=== PATIENT | female | born 1925 | race Caucasian/White ===

== ENCOUNTER 2016-06-13 19:07 | Inpatient (IN) | payer MEDICARE, OTHER ==
[~2016-06-13] VITALS: Ht 160 cm; Wt 54.4 kg
[2016-06-13 19:15] VITALS: BP 146/113
[2016-06-13 19:25] VITALS: BP 134/61
[2016-06-13] MEDS ORDERED: Vancomycin 1 GM in D5W 275 ML IVPB ONE (19:30)
[2016-06-13] MEDS ORDERED: Piperacillin/Tazobactam 3.375 GM in NS 110 ML IVPB ONE (19:30)
--- NOTE | 2016-06-13 19:30 | Emergency Room Report ---
History of Present Illness General Chief Complaint: Dyspnea/Respdistress Source: EMS Present Illness HPI [id number] BIBEMS for "SOB." Per paperwork/labs from 2 days ago Leuks 13k, H&H Sent for ?sepsis. Pmhx: HTN, CHF, CVA, dementia, DM, COPD Allergies: Coded Allergies: No Known Allergies (Unverified , 06/13/16) Patient History Limited by: age, medical condition Past Medical History: other - see my HPI Past Surgical History: unable to obtain Pertinent Family History: unable to obtain Social History: Denies: alcohol use, drug use, smoking Now: No Immunizations: UTD Reviewed Nursing Documentation: PMH: Agreed, PSxH: Agreed Nursing Documentation-PMH Past Medical History: No History, Except For Hx Cardiac Problems: Yes - CKD, heart failure Hx Hypertension: Yes Hx COPD: Yes Review of Systems All Other Systems: limited - unable to obtain Physical Exam Vital Signs Date Time Temp Pulse Resp B/P Pulse Ox O2 Delivery O2 Flow Rate FiO2 06/13/16 18:53 96 20 146/113 95 Nasal Cannula 4.0 Sp02 EP Interpretation: reviewed, normal General Appearance: normal inspection, well appearing, no apparent distress, non-toxic, other - Repeatedly yelling/moaning. Not speaking Head: normocephalic, atraumatic Eyes: bilateral eye EOMI, bilateral eye PERRL ENT: normal ENT inspection, hearing grossly normal, normal voice Neck: normal inspection, full range of motion, supple, no bony tend Respiratory: normal inspection, lungs clear, normal breath sounds, no rhonchi, no respiratory distress, no retraction, no accessory muscle use, no wheezing Cardiovascular #1: regular rate, rhythm, no edema Gastrointestinal: normal inspection, normal bowel sounds, non tender, soft, no guarding, no hernia Genitourinary: no CVA tenderness Musculoskeletal: normal inspection, back normal, normal range of motion, Jessica' s Sign negative Neurologic: normal inspection, alert, responsive, speech normal Psychiatric: normal inspection, judgement/insight normal, mood/affect normal Skin: normal inspection, normal color, no rash Lymphatic: normal inspection Medical Decision Making Medicare Attestation I Ede Levy MD hereby attest that the medical record entry for date of service, 02/09/16 accurately reflects signatures/notations that I made in my capacity as MD when I treated/diagnosed the above listed Medicare beneficiary. I attest that this information is true, accurate and complete to the best of my knowledge. I understand that any falsification, omission, or concealment of material fact may subject me to administrative, civil, or criminal liability. This patient warrants hospital admission for extreme of age and has a condition that cannot be treated as outpatient. Diagnostic Impression: Primary Impression: Hypoxia Additional Impressions: Sepsis Qualified Codes: A41.9 - Sepsis, unspecified organism ANNELIESE (acute kidney injury) ER Course Labs: Leuks 17k. H&H stable. Mild ANNELIESE CXR: No obvious lobar pna UA:grossly infected Blood Cx pending Empiric Abx given, likey urosepsis Endorsed to Dr Borjas at 808pm for tele admission. EKG Diagnostic Results Rate: tachycardiac Rhythm: NSR ST Segments: no acute changes ASA given to the pt in ED: No Rhythm Strip Diag. Results EP Interpretation: yes Rate: 88 Rhythm: NSR, no PVC's, no ectopy Chest X-Ray Diagnostic Results EP Interpretation: Yes Findings: no consolidation, no effusion, no pneumothorax, no acute cardiopulmonary disease Number of Views: 1 Last Vital Signs Date Time Temp Pulse Resp B/P Pulse Ox O2 Delivery O2 Flow Rate FiO2 06/13/16 19:15 96 20 Nasal Cannula 4.0 06/13/16 19:15 146/113 95 Status: improved Disposition: ADMITTED INPATIENT Condition: Serious EDE LEVY M.D. Jun 13, 2016 19:30
[2016-06-13] MEDS ORDERED: Zosyn 3.375gm inj ONE (19:35)
[2016-06-13 19:39] LABS: BASOPHILS % (AUTO) 0.5 % (0.0-2.0); EOSINOPHILS % (AUTO) 4.4 % (0.0-3.0); LYMPHOCYTES % (AUTO) 16.5 % (20.0-45.0); MEAN CORPUSCULAR HEMOGLOBIN 29.3 PG (27.0-31.0); MEAN CORPUSCULAR HGB CONC 30.4 G/DL (32.0-36.0); MEAN CORPUSCULAR VOLUME 96 FL (80-99); MEAN PLATELET VOLUME 6.6 FL (6.5-10.1); MONOCYTES % (AUTO) 5.2 % (1.0-10.0); NEUTROPHILS % (AUTO) 73.5 % (45.0-75.0); PLATELET COUNT 407 K/UL (150-450); RED BLOOD COUNT 3.99 M/UL (4.20-5.40); RED CELL DISTRIBUTION WIDTH 15.5 % (11.6-14.8)
[2016-06-13 19:49] LABS: TROPONIN I < 0.30 ng/mL (<=0.30)
[2016-06-13 19:52] LABS: ALANINE AMINOTRANSFERASE 10 U/L (3-33); ANION GAP 12 (5-15); ASPARTATE AMINO TRANSFERASE 13 U/L (5-40); CALCIUM 10.2 mg/dL (8.6-10.2); CARBON DIOXIDE 36 mEQ/L (20-30); CHLORIDE 97 mEQ/L (98-107); HEMOLYSIS 2; POTASSIUM 4.6 mEQ/L (3.4-4.9); SODIUM 145 mEQ/L (135-145)
[2016-06-13 20:02] LABS: CKMB < 1.5 ng/mL (< 3.8)
[2016-06-13] MEDS ORDERED: Vancomycin 1gm inj IVPB ONE (20:10)
[2016-06-13 20:11] LABS: APPEARANCE,URINE TURBID; KETONES,URINE NEGATIVE (NEGATIVE); LEUKOCYTE ESTERASE ,URINE 3+ (NEGATIVE); NITRITE,URINE NEGATIVE (NEGATIVE); PH,URINE 7 (4.5-8.0); PROTEIN,URINE 3+ (NEGATIVE); UROBILINOGEN,URINE NORMAL MG/DL (0.0-1.0)
[2016-06-13 20:21] LABS: AMORPHOUS SEDIMENT,UR MANY /LPF; BACTERIA,URINE MODERATE /HPF; SQUAMOUS EPITHELIAL CELL,UR FEW /LPF (NONE/OCC); WBC,URINE 60-80 /HPF (0 - 2)
[2016-06-13] MEDS ORDERED: DUONEB 0.5-3(2.53 ML HHN (21:02)
[2016-06-13] MEDS ORDERED: DOCUSATE SODIU100 MG ORAL (21:02)
[2016-06-13] MEDS ORDERED: CATAPRES0.1 MG ORAL (21:02)
[2016-06-13] MEDS ORDERED: FERROUS SU300 MG/5 M ORAL (21:03)
[2016-06-13] MEDS ORDERED: MULTI-DELYN237 ML GT (21:03)
[2016-06-13] MEDS ORDERED: PEPCID20 MG ORAL (21:03)
[2016-06-13] MEDS ORDERED: VITAMIN C GT (21:06)
[2016-06-13] MEDS ORDERED: SYNTHROID25 MCG ORAL (21:06)
[2016-06-13] MEDS ORDERED: ACETAMINOPHEN325 M1 ORAL (21:06)
[2016-06-13] MEDS ORDERED: SINGULAIR10 MG ORAL (21:06)
[2016-06-13 21:17] VITALS: BP 113/69
[2016-06-13] MEDS ORDERED: Norco 5mg/325mg tab ORAL PRN (22:00)
[2016-06-13] MEDS ORDERED: Docusate 100mg tablet ORAL PRN (22:00)
[2016-06-13] MEDS ORDERED: Morphine Sulfate 2mg/ml Inj IVP PRN (22:00)
--- NOTE | 2016-06-13 23:55 | History & Physical ---
History and Physical History & Physicial H&P dictated [id number] SARAVANAN ROWE M.D. Jun 13, 2016 23:55
[2016-06-14] VITALS: BP 147/100
[2016-06-14 04:00] VITALS: BP 130/70
[2016-06-14] MEDS ORDERED: NovoLOG Insulin Flexpen SUBQ SCH (06:30)
[2016-06-14] MEDS ORDERED: DiphenhydrAMINE 25mg/10ml Elixir NG PRN (06:30)
[2016-06-14] MEDS: Albuterol ud Inhalation HHN SCH ×3 (07:20→19:13)
--- NOTE | 2016-06-14 07:39 | History and Physical Report ---
DATE OF ADMISSION: 06/13/2016 CHIEF COMPLAINT: Dyspnea. HISTORY OF PRESENT ILLNESS: This is an 89-year-old female with a history of dementia, hypertension, congestive heart failure, history of CVA, diabetes, dysphagia with G-tube placement, COPD, and pneumonia in the past, who was brought in by ambulance to long-term facility for shortness of breath and dyspnea. The patient is currently on 4 liters of oxygen saturating at 96%. She is a poor historian with a history of dementia. She has not had any fevers. History was obtained from the chart and records. The patient had a white count of 13,000 two days ago and today her white count is 17,000. PAST MEDICAL HISTORY: Significant for dementia, hypertension, congestive heart failure, history of CVA, diabetes, dysphagia, status post G-tube placement, and COPD. ALLERGIES: No known drug allergies. MEDICATIONS: Reviewed in [employer]. SOCIAL HISTORY: The patient denies drinks, smoke, or use of any drugs. FAMILY HISTORY: Noncontributory. REVIEW OF SYSTEMS: Unobtainable because of the patient's mental status and dementia. PHYSICAL EXAMINATION: VITAL SIGNS: In emergency room, temperature is 98 degrees, pulse is 96, respiratory rate 20, blood pressure 146/113, and pulse oximetry is 95% on 4 liters. GENERAL: In no acute distress. This is an elderly lady, who is very difficult to arouse. She is sleeping. HEENT: Normocephalic/atraumatic. NECK: Supple. No JVD. LUNGS: Wheezy bilaterally, however, no rhonchi appreciated. CARDIOVASCULAR: Regular rate and rhythm. Normal S1 and S2. ABDOMEN: Soft and nontender. She has an abdominal binder with PEG tube in place. EXTREMITIES: No clubbing, cyanosis, or edema. SKIN: The patient has some redness over the left lower back and upper back, otherwise no other rashes seen. PSYCH: Difficult to assess because of the patient's lethargy. NEUROLOGIC: The patient is asleep and difficult to arouse. I could not check motor function. LABORATORY AND DIAGNOSTIC DATA: EKG shows normal sinus rhythm, tachycardia, and no acute changes. Chest x-ray shows no consolidation. No culture. CBC, white count of 19,000, hemoglobin 11.7, and platelet count 407,000. Sodium 145, potassium 4.6, chloride 97, CO2 26, BUN 49, creatinine 1. Glucose 144. Lactic acid is 1.4. Troponin is less than 0.30. Urine, 60 to 80 white blood cells, 5 to 10 RBCs, 3+ leukocyte esterase, and moderate bacteria. ASSESSMENT: 1. Hypoxic respiratory distress, likely secondary to upper respiratory infection. 2. Sepsis (Systemic inflammatory response syndrome criteria) now with leukocytosis with white count of 30,000 and pulse rate of 90 as well as source of likely upper respiratory infection. 3. Urinary tract infection. 4. Severe dementia. 5. History of cerebrovascular accident. 6. Hypertension. 7. Diabetes. 8. Dysphagia with gastrostomy tube placement. 9. Chronic obstructive pulmonary disease. 10. Acute kidney injury, likely prerenal. PLAN: 1. Admit the patient to Med/Surg. 2. Blood culture is pending. 3. Empiric antibiotics with vancomycin and Zosyn. 4. Nebs as needed every 4 hours. 5. Follow up urine culture. 6. Intravenous fluids. 7. Pulmonary consult with Dr. Razo in a.m. 8. DVT prophylaxis with heparin. José Miguel Borjas MD DR: SHILPI/Arturo JOB#: [id number] CC:
[2016-06-14 08:00] VITALS: BP 114/52
[2016-06-14 08:10] LABS: BASOPHILS % (AUTO) 0.6 % (0.0-2.0); EOSINOPHILS % (AUTO) 5.4 % (0.0-3.0); LYMPHOCYTES % (AUTO) 14.5 % (20.0-45.0); MEAN CORPUSCULAR HEMOGLOBIN 29.4 PG (27.0-31.0); MEAN CORPUSCULAR HGB CONC 30.3 G/DL (32.0-36.0); MEAN CORPUSCULAR VOLUME 97 FL (80-99); MEAN PLATELET VOLUME 6.4 FL (6.5-10.1); MONOCYTES % (AUTO) 4.9 % (1.0-10.0); NEUTROPHILS % (AUTO) 74.6 % (45.0-75.0); PLATELET COUNT 339 K/UL (150-450); RED BLOOD COUNT 3.77 M/UL (4.20-5.40); RED CELL DISTRIBUTION WIDTH 15.5 % (11.6-14.8); WHITE BLOOD COUNT 15.4 K/UL (4.8-10.8)
[2016-06-14 08:42] LABS: ALANINE AMINOTRANSFERASE 9 U/L (3-33); ANION GAP 12 (5-15); ASPARTATE AMINO TRANSFERASE 18 U/L (5-40); CALCIUM 9.5 mg/dL (8.6-10.2); CARBON DIOXIDE 36 mEQ/L (20-30); CHLORIDE 101 mEQ/L (98-107); HEMOLYSIS 2; POTASSIUM 4.5 mEQ/L (3.4-4.9); SODIUM 149 mEQ/L (135-145); TOTAL PROTEIN 6.4 g/dL (6.6-8.7)
[2016-06-14] MEDS ORDERED: Levothyroxine 25mcg tab ORAL SCH (09:00)
[2016-06-14] MEDS ORDERED: Heparin 5000 units/ml inj SUBQ SCH (09:00)
--- NOTE | 2016-06-14 11:45 | Diagnostic Imaging Report ---
Indications: Shortness breath Technique: Portable AP chest Findings: Comparison: None Cardiac silhouette enlarged. Central pulmonary arteries prominent. Mild pulmonary vascular redistribution, bilateral interstitial prominence suggested. Small calcified nodule suggested left midlung. Linear densities right midlung. Bilateral costophrenic angles mildly blunted. Lower thoracic vertebral osteophytes. Aortic arch calcified. IMPRESSION: Findings suggest mild congestive heart failure with small bibasal pleural effusions Suggestion is left midlung nodule, granuloma versus other Aortosclerosis Suggestion of element of pulmonary arterial hypertension
[2016-06-14] MEDS: NovoLOG Insulin Flexpen SUBQ SCH ×3 (12:12→23:33)
--- NOTE | 2016-06-14 12:55 | Internal Med Progress Note ---
Subjective Date of Service: Jun 14, 2016 Physician Name Radha Berman Attending Physician José Miguel Borjas M.D. Current Medications Medications (Trade) Dose Ordered Sig/Mallory Route PRN Reason Start Time Stop Time Status Last Admin Dose Admin Acetaminophen (Tylenol) 650 mg Q4H PRN ORAL Mild Pain (Pain Scale 1-3) 06/13/16 22:00 07/13/16 21:59 Acetaminophen 650 mg 650 mg Q4H PRN ORAL Mild Pain/Temp > 100.5 06/13/16 22:00 07/13/16 21:59 Acetaminophen/ Hydrocodone Bitart ([place] 5/325) 1 tab Q4H PRN ORAL Moderate Pain (Pain Scale 4-6) 06/13/16 22:00 06/20/16 21:59 Albuterol Sulfate (Proventil) 2.5 mg Q6HRT HHN 06/14/16 01:00 06/19/16 00:59 06/14/16 07:20 Clonidine HCl (Catapres) 0.1 mg DAILY PRN ORAL For High Blood Pressure 06/13/16 22:00 07/13/16 21:59 Dextrose (Dextrose 50%) STAT PRN IV Hypoglycemia 06/14/16 06:30 07/14/16 06:29 Diphenhydramine HCl (Benadryl) 25 mg Q6H PRN NG Itching or rash 06/14/16 06:30 07/14/16 06:29 06/14/16 10:38 Docusate Sodium (Colace) 100 mg TID PRN ORAL Constipation 06/13/16 22:00 07/13/16 21:59 Heparin Sodium (Porcine) (Heparin 5000 units/ml) 5,000 units EVERY 12 HOURS SUBQ 06/14/16 09:00 07/14/16 08:59 06/14/16 09:22 Insulin Aspart (NovoLOG) Q6HR SUBQ 06/14/16 12:00 07/14/16 11:59 06/14/16 12:12 Levothyroxine Sodium (Synthroid) 25 mcg DAILY ORAL 06/14/16 09:00 07/14/16 08:59 06/14/16 09:21 Morphine Sulfate (Morphine Sulfate) 2 mg Q4H PRN IVP For Pain 06/13/16 22:00 06/20/16 21:59 Ondansetron HCl (Zofran) 4 mg Q6H PRN IVP Nausea & Vomiting 06/13/16 22:00 07/13/16 21:59 Sodium Chloride (Sodium Chloride 1000ml bag) 1,000 ml @ 100 mls/hr Q10H IVLG 06/13/16 22:55 07/13/16 22:54 06/14/16 09:21 Allergies: Coded Allergies: No Known Allergies (Unverified , 06/13/16) ROS Limited/Unobtainable: Yes Subjective 89 YO F admitted with shortness of breath. Cover for Int med-Dr Borjas. Objective Last Vital Signs Date Time Temp Pulse Resp B/P Pulse Ox O2 Delivery O2 Flow Rate FiO2 06/14/16 08:00 88 06/14/16 08:00 96.5 18 114/52 96 Nasal Cannula 2.0 06/14/16 07:20 28 Laboratory Tests Test 06/13/16 19:10 06/13/16 19:20 06/14/16 07:05 White Blood Count 17.0 K/UL (4.8-10.8) H 15.4 K/UL (4.8-10.8) H Red Blood Count 3.99 M/UL (4.20-5.40) L 3.77 M/UL (4.20-5.40) L Hemoglobin 11.7 G/DL (12.0-16.0) L 11.1 G/DL (12.0-16.0) L Hematocrit 38.4 % (37.0-47.0) 36.6 % (37.0-47.0) L Mean Corpuscular Volume 96 FL (80-99) 97 FL (80-99) Mean Corpuscular Hemoglobin 29.3 PG (27.0-31.0) 29.4 PG (27.0-31.0) Mean Corpuscular Hemoglobin Concent 30.4 G/DL (32.0-36.0) L 30.3 G/DL (32.0-36.0) L Red Cell Distribution Width 15.5 % (11.6-14.8) H 15.5 % (11.6-14.8) H Platelet Count 407 K/UL (150-450) 339 K/UL (150-450) Mean Platelet Volume 6.6 FL (6.5-10.1) 6.4 FL (6.5-10.1) L Neutrophils (%) (Auto) 73.5 % (45.0-75.0) 74.6 % (45.0-75.0) Lymphocytes (%) (Auto) 16.5 % (20.0-45.0) L 14.5 % (20.0-45.0) L Monocytes (%) (Auto) 5.2 % (1.0-10.0) 4.9 % (1.0-10.0) Eosinophils (%) (Auto) 4.4 % (0.0-3.0) H 5.4 % (0.0-3.0) H Basophils (%) (Auto) 0.5 % (0.0-2.0) 0.6 % (0.0-2.0) Sodium Level 145 mEQ/L (135-145) 149 mEQ/L (135-145) H Potassium Level 4.6 mEQ/L (3.4-4.9) 4.5 mEQ/L (3.4-4.9) Chloride Level 97 mEQ/L (98-107) L 101 mEQ/L (98-107) Carbon Dioxide Level 36 mEQ/L (20-30) H 36 mEQ/L (20-30) H Anion Gap 12 (5-15) 12 (5-15) Blood Urea Nitrogen 49 mg/dL (7-23) H 47 mg/dL (7-23) H Creatinine 1.0 mg/dL (0.5-0.9) H 1.0 mg/dL (0.5-0.9) H Estimat Glomerular Filtration Rate mL/min (>60) mL/min (>60) Glucose Level 144 mg/dL (74-106) H 111 mg/dL (74-106) H Lactic Acid Level 1.40 mmol/L (0.66-2.22) Calcium Level 10.2 mg/dL (8.6-10.2) 9.5 mg/dL (8.6-10.2) Total Bilirubin < 0.2 mg/dL (0.0-1.2) 0.3 mg/dL (0.0-1.2) Aspartate Amino Transf (AST/SGOT) 13 U/L (5-40) 18 U/L (5-40) Alanine Aminotransferase (ALT/SGPT) 10 U/L (3-33) 9 U/L (3-33) Alkaline Phosphatase 78 U/L (35-104) 73 U/L (35-104) Total Creatine Kinase 14 U/L (26-140) L Creatine Kinase MB < 1.5 ng/mL (< 3.8) Creatine Kinase MB Relative Index 10.7 Troponin I < 0.30 ng/mL (<=0.30) Pro-B-Type Natriuretic Peptide 904 pg/mL (0-450) H Total Protein 7.0 g/dL (6.6-8.7) 6.4 g/dL (6.6-8.7) L Albumin 3.5 g/dL (3.5-5.2) 3.2 g/dL (3.5-5.2) L Globulin 3.5 g/dL 3.2 g/dL Albumin/Globulin Ratio 1.0 (1.0-2.7) 1.0 (1.0-2.7) Urine Color Yellow Urine Appearance Turbid Urine pH 7 (4.5-8.0) Urine Specific [place] 1.010 (1.005-1.035) Urine Protein 3+ (NEGATIVE) H Urine Glucose (UA) Negative (NEGATIVE) Urine Ketones Negative (NEGATIVE) Urine Occult Blood 4+ (NEGATIVE) H Urine Nitrite Negative (NEGATIVE) Urine Bilirubin Negative (NEGATIVE) Urine Urobilinogen Normal MG/DL (0.0-1.0) Urine Leukocyte Esterase 3+ (NEGATIVE) H Urine RBC 5-10 /HPF (0 - 2) H Urine WBC 60-80 /HPF (0 - 2) H Urine Squamous Epithelial Cells Few /LPF (NONE/OCC) Urine Amorphous Sediment Many /LPF (NONE) H Urine Bacteria Moderate /HPF (NONE) H Hemoglobin A1c 4.9 % (< 6.0) Microbiology Date/Time Source Procedure Growth Status 06/13/16 19:20 Urine,Clean Catch Urine Culture - Preliminary Resulted Intake and Output 06/13/16 06/14/16 19:00 07:00 Intake Total 985 ml Output Total 400 ml Balance 585 ml Intake IV Total 985 ml Output Urine Total 400 ml # Voids 1 # Bowel Movements 4 Objective General: alert, cooperative, no distress, appears stated age Head: normocephalic, without obvious abnormality, atraumatic Eyes: conjunctivae/corneas clear. PERRL, EOM's intact Throat: lips, mucosa, and tongue normal. MMM Neck: supple, symmetrical, trachea midline, and no JVD Lungs: Few exp wheezes and crackles at deandra bases; otherwise, clear to auscultation bilaterally Heart: regular rate and rhythm, S1, S2 normal, no murmur, click, rub or gallop Abdomen: soft, non-tender, non-distended, bowel sounds normal; no masses or organomegaly Extremities: extremities normal, atraumatic, no cyanosis or edema Pulses: 2+ and symmetric Skin: skin color, texture, turgor normal; no rashes or lesions Neurologic: grossly normal, no focal deficits Assessment/Plan Problem List: (1) Shortness of breath (2) Respiratory failure Assessment & Plan: COPD and CHF. Await cardiology consult. (3) Hypertension (4) COPD (chronic obstructive pulmonary disease) (5) CHF (congestive heart failure) Assessment & Plan: Await cardiology consult. (6) Diabetes mellitus, type II Assessment & Plan: Cont novolog sliding scale. (7) Cerebral vascular disease (8) Leukocytosis (9) Alzheimer's dementia (10) Hypothyroidism Assessment & Plan: Cont synthroid (11) UTI (urinary tract infection) Assessment & Plan: Await culture results. Cont zosyn and vanco for now. Status: not improved RADHA BERMAN Jun 14, 2016 12:55
--- NOTE | 2016-06-14 13:23 | Consultation ---
History of Present Illness General Date patient seen: Jun 14, 2016 Chief Complaint: Dyspnea/Respdistress Reason for Consultation: dyspnea Present Illness HPI 89 year female with hx of CHF, CVA, PEG, DM, COPD [facility] resident brought in by paramedics because of dyspnea. Apparently he was tachypnic and desaturating. Pt can't give any history. She was diagnosed to have urosepsis and admitted to telemetry for further evaluation. Currently pt looks comfortable in no acute distress. Allergies: Coded Allergies: No Known Allergies (Unverified , 06/13/16) Medication History Scheduled Docusate Sodium* (Docusate Sodium*), 100 MG ORAL TWICE A DAY, (Reported) Famotidine (Pepcid), 20 MG ORAL DAILY, (Reported) Ferrous Sulfate (Ferrous Sulfate), 7.5 ML ORAL DAILY, (Reported) Levothyroxine Sodium* (Synthroid*), 25 MCG ORAL DAILY, (Reported) Montelukast Sodium* (Singulair*), 10 MG ORAL BEDTIME, (Reported) Multivitamin Liquid* (Multi-Delyn*), 5 ML GT DAILY, (Reported) [Vitamin C], 5 ML GT DAILY, (Reported) Scheduled PRN Acetaminophen* (Acetaminophen 325MG Tablet*), 325 MG ORAL Q4H PRN for For Pain, (Reported) Clonidine Hcl* (Catapres*), 0.1 MG ORAL PRN PRN for For High Blood Pressure, ( Reported) Ipratropium/Albuterol Sulfate (DuoNeb 0.5-3(2.5)mg/3ml), 3 ML HHN EVERY 4 HOURS PRN for Shortness of Breath, (Reported) Patient History Healthcare decision maker Resuscitation status Full Code Advanced Directive on File Past Medical/Surgical History Past Medical/Surgical History: (1) COPD (chronic obstructive pulmonary disease) (2) Diabetes mellitus, type II (3) Hypertension (4) Cerebral vascular disease (5) Alzheimer's dementia Review of Systems All Other Systems: negative except mentioned in HPI Physical Exam General Appearance: WD/WN, no apparent distress Lines, tubes and drains: peripheral, central line HEENT: normocephalic, atraumatic Neck: non-tender Respiratory/Chest: chest wall non-tender Cardiovascular/Chest: normal peripheral pulses Abdomen: normal bowel sounds, feeding tube, other Genitourinary/Rectal: normal genital exam Extremities: normal range of motion, non-tender Last 24 Hour Vital Signs Date Time Temp Pulse Resp B/P Pulse Ox O2 Delivery O2 Flow Rate FiO2 06/14/16 13:04 28 06/14/16 13:04 73 18 98 Nasal Cannula 2.0 28 06/14/16 13:03 69 18 97 Nasal Cannula 2.0 28 06/14/16 08:00 88 06/14/16 08:00 96.5 88 18 114/52 96 Nasal Cannula 2.0 06/14/16 07:20 86 18 97 Nasal Cannula 2.0 28 06/14/16 07:20 Nasal Cannula 2.0 28 06/14/16 07:20 86 18 Nasal Cannula 4.0 06/14/16 07:20 28 06/14/16 07:20 86 18 98 Nasal Cannula 2.0 28 06/14/16 04:00 91 06/14/16 04:00 97.9 88 16 130/70 98 Nasal Cannula 4.0 06/14/16 00:00 97.0 89 16 147/100 100 Nasal Cannula 4.0 06/13/16 23:48 87 06/13/16 21:49 97 31 113/69 94 Nasal Cannula 6.0 06/13/16 21:17 97.6 97 31 113/69 94 Nasal Cannula 6.0 06/13/16 19:25 99.5 94 19 134/61 94 Nasal Cannula 4.0 06/13/16 19:15 96 20 Nasal Cannula 4.0 06/13/16 19:15 66 20 146/113 95 Nasal Cannula 4.0 06/13/16 18:53 96 20 146/113 95 Nasal Cannula 4.0 Intake and Output 06/13/16 06/14/16 19:00 07:00 Intake Total 985 ml Output Total 400 ml Balance 585 ml Intake IV Total 985 ml Output Urine Total 400 ml # Voids 1 # Bowel Movements 4 Laboratory Tests Test 06/13/16 19:10 06/13/16 19:20 06/14/16 07:05 White Blood Count 17.0 K/UL (4.8-10.8) H 15.4 K/UL (4.8-10.8) H Red Blood Count 3.99 M/UL (4.20-5.40) L 3.77 M/UL (4.20-5.40) L Hemoglobin 11.7 G/DL (12.0-16.0) L 11.1 G/DL (12.0-16.0) L Hematocrit 38.4 % (37.0-47.0) 36.6 % (37.0-47.0) L Mean Corpuscular Volume 96 FL (80-99) 97 FL (80-99) Mean Corpuscular Hemoglobin 29.3 PG (27.0-31.0) 29.4 PG (27.0-31.0) Mean Corpuscular Hemoglobin Concent 30.4 G/DL (32.0-36.0) L 30.3 G/DL (32.0-36.0) L Red Cell Distribution Width 15.5 % (11.6-14.8) H 15.5 % (11.6-14.8) H Platelet Count 407 K/UL (150-450) 339 K/UL (150-450) Mean Platelet Volume 6.6 FL (6.5-10.1) 6.4 FL (6.5-10.1) L Neutrophils (%) (Auto) 73.5 % (45.0-75.0) 74.6 % (45.0-75.0) Lymphocytes (%) (Auto) 16.5 % (20.0-45.0) L 14.5 % (20.0-45.0) L Monocytes (%) (Auto) 5.2 % (1.0-10.0) 4.9 % (1.0-10.0) Eosinophils (%) (Auto) 4.4 % (0.0-3.0) H 5.4 % (0.0-3.0) H Basophils (%) (Auto) 0.5 % (0.0-2.0) 0.6 % (0.0-2.0) Sodium Level 145 mEQ/L (135-145) 149 mEQ/L (135-145) H Potassium Level 4.6 mEQ/L (3.4-4.9) 4.5 mEQ/L (3.4-4.9) Chloride Level 97 mEQ/L (98-107) L 101 mEQ/L (98-107) Carbon Dioxide Level 36 mEQ/L (20-30) H 36 mEQ/L (20-30) H Anion Gap 12 (5-15) 12 (5-15) Blood Urea Nitrogen 49 mg/dL (7-23) H 47 mg/dL (7-23) H Creatinine 1.0 mg/dL (0.5-0.9) H 1.0 mg/dL (0.5-0.9) H Estimat Glomerular Filtration Rate mL/min (>60) mL/min (>60) Glucose Level 144 mg/dL (74-106) H 111 mg/dL (74-106) H Lactic Acid Level 1.40 mmol/L (0.66-2.22) Calcium Level 10.2 mg/dL (8.6-10.2) 9.5 mg/dL (8.6-10.2) Total Bilirubin < 0.2 mg/dL (0.0-1.2) 0.3 mg/dL (0.0-1.2) Aspartate Amino Transf (AST/SGOT) 13 U/L (5-40) 18 U/L (5-40) Alanine Aminotransferase (ALT/SGPT) 10 U/L (3-33) 9 U/L (3-33) Alkaline Phosphatase 78 U/L (35-104) 73 U/L (35-104) Total Creatine Kinase 14 U/L (26-140) L Creatine Kinase MB < 1.5 ng/mL (< 3.8) Creatine Kinase MB Relative Index 10.7 Troponin I < 0.30 ng/mL (<=0.30) Pro-B-Type Natriuretic Peptide 904 pg/mL (0-450) H Total Protein 7.0 g/dL (6.6-8.7) 6.4 g/dL (6.6-8.7) L Albumin 3.5 g/dL (3.5-5.2) 3.2 g/dL (3.5-5.2) L Globulin 3.5 g/dL 3.2 g/dL Albumin/Globulin Ratio 1.0 (1.0-2.7) 1.0 (1.0-2.7) Urine Color Yellow Urine Appearance Turbid Urine pH 7 (4.5-8.0) Urine Specific [place] 1.010 (1.005-1.035) Urine Protein 3+ (NEGATIVE) H Urine Glucose (UA) Negative (NEGATIVE) Urine Ketones Negative (NEGATIVE) Urine Occult Blood 4+ (NEGATIVE) H Urine Nitrite Negative (NEGATIVE) Urine Bilirubin Negative (NEGATIVE) Urine Urobilinogen Normal MG/DL (0.0-1.0) Urine Leukocyte Esterase 3+ (NEGATIVE) H Urine RBC 5-10 /HPF (0 - 2) H Urine WBC 60-80 /HPF (0 - 2) H Urine Squamous Epithelial Cells Few /LPF (NONE/OCC) Urine Amorphous Sediment Many /LPF (NONE) H Urine Bacteria Moderate /HPF (NONE) H Hemoglobin A1c 4.9 % (< 6.0) Microbiology Date/Time Source Procedure Growth Status 06/13/16 19:20 Urine,Clean Catch Urine Culture - Preliminary Resulted Height (Feet): 5 Height (Inches): 3.00 Weight (Pounds): 120 Medications Current Medications Medications (Trade) Dose Ordered Sig/Mallory Route PRN Reason Start Time Stop Time Status Last Admin Dose Admin Acetaminophen (Tylenol) 650 mg Q4H PRN ORAL Mild Pain (Pain Scale 1-3) 06/13/16 22:00 07/13/16 21:59 Acetaminophen (Tylenol) 650 mg Q4H PRN ORAL Mild Pain/Temp > 100.5 06/13/16 22:00 07/13/16 21:59 Acetaminophen/ Hydrocodone Bitart ([place] 5/325) 1 tab Q4H PRN ORAL Moderate Pain (Pain Scale 4-6) 06/13/16 22:00 06/20/16 21:59 Albuterol Sulfate (Proventil) 2.5 mg Q6HRT HHN 06/14/16 01:00 06/19/16 00:59 06/14/16 13:02 Clonidine HCl (Catapres) 0.1 mg DAILY PRN ORAL For High Blood Pressure 06/13/16 22:00 07/13/16 21:59 Dextrose (Dextrose 50%) STAT PRN IV Hypoglycemia 06/14/16 06:30 07/14/16 06:29 Diphenhydramine HCl (Benadryl) 25 mg Q6H PRN NG Itching or rash 06/14/16 06:30 07/14/16 06:29 06/14/16 10:38 Docusate Sodium (Colace) 100 mg TID PRN ORAL Constipation 06/13/16 22:00 07/13/16 21:59 Heparin Sodium (Porcine) (Heparin 5000 units/ml) 5,000 units EVERY 12 HOURS SUBQ 06/14/16 09:00 07/14/16 08:59 06/14/16 09:22 Insulin Aspart Q6HR SUBQ 06/14/16 12:00 07/14/16 11:59 06/14/16 12:12 Levothyroxine Sodium (Synthroid) 25 mcg DAILY ORAL 06/14/16 09:00 07/14/16 08:59 06/14/16 09:21 Morphine Sulfate (Morphine Sulfate) 2 mg Q4H PRN IVP For Pain 06/13/16 22:00 06/20/16 21:59 Ondansetron HCl (Zofran) 4 mg Q6H PRN IVP Nausea & Vomiting 06/13/16 22:00 07/13/16 21:59 Sodium Chloride (0.45% NS 1000ml) 1,000 ml @ 50 mls/hr Q20H IV 06/14/16 13:00 07/14/16 12:59 UNV Assessment/Plan Problem List: (1) Sepsis ICD Codes: A41.9 - Sepsis, unspecified organism SNOMED: 51600172, 08685520 Qualifiers: Qualified Codes: A41.9 - Sepsis, unspecified organism (2) ANNELIESE (acute kidney injury) ICD Codes: N17.9 - Acute kidney failure, unspecified SNOMED: 34287835, 23134729 (3) Hypoxia ICD Codes: R09.02 - Hypoxemia SNOMED: 303011916, 14075022 (4) COPD (chronic obstructive pulmonary disease) ICD Codes: J44.9 - Chronic obstructive pulmonary disease, unspecified SNOMED: 37733744 (5) Diabetes mellitus, type II ICD Codes: E11.9 - Type 2 diabetes mellitus without complications SNOMED: 10509096 (6) Cerebral vascular disease ICD Codes: I67.9 - Cerebrovascular disease, unspecified SNOMED: 57166930 Assessment/Plan iv antibiotics IV fluids check culturs renal work up aspiration precaution dvt prophylaxis check scottctroltyMICHELLE Garcia Jun 14, 2016 13:23
[2016-06-14 14:09] LABS: ALANINE AMINOTRANSFERASE 10 U/L (3-33); ANION GAP 16 (5-15); ASPARTATE AMINO TRANSFERASE 17 U/L (5-40); CALCIUM 9.7 mg/dL (8.6-10.2); CARBON DIOXIDE 32 mEQ/L (20-30); CHLORIDE 101 mEQ/L (98-107); HEMOLYSIS 5; MAGNESIUM 2.3 mg/dL (1.7-2.5); PHOSPHORUS 4.2 mg/dL (2.5-4.8); POTASSIUM 4.5 mEQ/L (3.4-4.9); SODIUM 149 mEQ/L (135-145); TOTAL PROTEIN 6.5 g/dL (6.6-8.7)
[2016-06-14 14:39] LABS: APPEARANCE,URINE SLIGHTLY CLOUDY; KETONES,URINE NEGATIVE (NEGATIVE); LEUKOCYTE ESTERASE ,URINE 3+ (NEGATIVE); NITRITE,URINE NEGATIVE (NEGATIVE); PH,URINE 7 (4.5-8.0); PROTEIN,URINE 2+ (NEGATIVE); UROBILINOGEN,URINE NORMAL MG/DL (0.0-1.0)
[2016-06-14 14:49] LABS: BACTERIA,URINE FEW /HPF; SQUAMOUS EPITHELIAL CELL,UR FEW /LPF (NONE/OCC)
[2016-06-14 14:50] LABS: WBC,URINE 20-30 /HPF (0 - 2)
[2016-06-14 20:00] VITALS: BP 157/72
[2016-06-14] MEDS: Heparin 5000 units/ml inj SUBQ SCH (20:56)
[2016-06-14 21:50] VITALS: BP 109/59
[2016-06-14] MEDS ORDERED: Morphine Sulfate 2mg/ml Inj IVP PRN (22:00)
[2016-06-15] VITALS: BP 129/56
[2016-06-15] MEDS: DiphenhydrAMINE 25mg/10ml Elixir NG PRN (00:58)
[2016-06-15] MEDS: Albuterol ud Inhalation HHN SCH ×4 (01:14→19:00)
[2016-06-15 04:00] VITALS: BP 116/61
[2016-06-15] MEDS: NovoLOG Insulin Flexpen SUBQ SCH ×3 (06:00→18:00)
[2016-06-15] MEDS: Levothyroxine 25mcg tab ORAL SCH (06:04)
[2016-06-15 06:50] LABS: BASOPHILS % (AUTO) 0.4 % (0.0-2.0); LYMPHOCYTES % (AUTO) 16.4 % (20.0-45.0); MEAN CORPUSCULAR VOLUME 97 FL (80-99); MEAN PLATELET VOLUME 6.8 FL (6.5-10.1); MONOCYTES % (AUTO) 5.3 % (1.0-10.0); NEUTROPHILS % (AUTO) 70.9 % (45.0-75.0); PLATELET COUNT 314 K/UL (150-450); RED BLOOD COUNT 3.29 M/UL (4.20-5.40); RED CELL DISTRIBUTION WIDTH 16.1 % (11.6-14.8); WHITE BLOOD COUNT 12.1 K/UL (4.8-10.8)
[2016-06-15 06:56] LABS: ANION GAP 8 (5-15); CALCIUM 9.5 mg/dL (8.6-10.2); CARBON DIOXIDE 36 mEQ/L (20-30); CHLORIDE 105 mEQ/L (98-107); CREATININE 0.8 mg/dL (0.5-0.9); HEMOLYSIS 1; SODIUM 149 mEQ/L (135-145); TROPONIN I < 0.30 ng/mL (<=0.30)
[2016-06-15 08:07] VITALS: BP 112/51
[2016-06-15 08:10] LABS: CORTISOL LC 19.7 ug/dL (.); FREE TRIIODOTHYRONINE 2.7 pg/mL (2.0-4.4)
[2016-06-15] MEDS ORDERED: Docusate 100mg tablet ORAL PRN (09:00)
--- NOTE | 2016-06-15 09:00 | Consultation ---
Consult Note Consult Note [facility]# [id number] KIMO CEDEÑO M.D. Jun 15, 2016 09:00
[2016-06-15] MEDS: Heparin 5000 units/ml inj SUBQ SCH ×2 (09:30→20:29)
[2016-06-15] MEDS: cefTRIAXone 1 GM in NS 55 ML IVPB SCH (10:49)
[2016-06-15 11:26] VITALS: BP 125/61
[2016-06-15 16:04] VITALS: BP 125/57
--- NOTE | 2016-06-15 16:26 | Internal Med Progress Note ---
Subjective Date of Service: Jun 15, 2016 Physician Name JackieRadha Attending Physician Yeimi Razo Current Medications Medications (Trade) Dose Ordered Sig/Mallory Route PRN Reason Start Time Stop Time Status Last Admin Dose Admin Acetaminophen (Tylenol) 650 mg Q4H PRN ORAL Mild Pain (Pain Scale 1-3) 06/14/16 22:00 07/14/16 21:59 Acetaminophen (Tylenol) 650 mg Q4H PRN ORAL Mild Pain/Temp > 100.5 06/14/16 22:00 07/14/16 21:59 Acetaminophen/ Hydrocodone Bitart ([place] 5/325) 1 tab Q4H PRN ORAL Moderate Pain (Pain Scale 4-6) 06/14/16 22:00 06/21/16 21:59 Albuterol Sulfate (Proventil) 2.5 mg Q6HRT HHN 06/15/16 01:00 06/20/16 00:59 06/15/16 12:27 Ceftriaxone Sodium/Sodium Chloride (Rocephin/Sodium Chloride) 55 ml @ 110 mls/hr Q24H IVPB 06/15/16 11:00 06/22/16 10:59 06/15/16 10:49 Clonidine HCl (Catapres) 0.1 mg DAILY PRN ORAL sbp>160 06/14/16 21:00 07/14/16 20:59 Dextrose (Dextrose 50%) STAT PRN IV Hypoglycemia 06/15/16 06:30 07/15/16 06:29 Diphenhydramine HCl (Benadryl) 25 mg Q6H PRN NG Itching or rash 06/15/16 00:30 07/15/16 00:29 06/15/16 00:58 Docusate Sodium (Colace) 100 mg TID PRN ORAL Constipation 06/15/16 09:00 07/15/16 08:59 Heparin Sodium (Porcine) (Heparin 5000 units/ml) 5,000 units EVERY 12 HOURS SUBQ 06/14/16 21:00 07/14/16 20:59 06/15/16 09:30 Insulin Aspart (NovoLOG) Q6HR SUBQ 06/15/16 00:00 07/15/16 00:00 06/15/16 12:31 Levothyroxine Sodium (Synthroid) 25 mcg DAILY@0630 ORAL 06/15/16 06:30 07/15/16 06:29 06/15/16 06:04 Morphine Sulfate (Morphine Sulfate) 2 mg Q4H PRN IVP Severe Pain (Pain Scale 7-10) 06/14/16 22:00 06/21/16 21:59 Ondansetron HCl 4 mg 4 mg Q6H PRN IVP Nausea & Vomiting 06/14/16 22:00 07/14/16 21:59 Sodium Chloride (0.45% NS 1000ml) 1,000 ml @ 50 mls/hr Q20H IV 06/14/16 21:00 07/14/16 20:59 06/14/16 21:00 Allergies: Coded Allergies: No Known Allergies (Unverified , 06/13/16) ROS Limited/Unobtainable: Yes Subjective 89 YO F admitted with shortness of breath. Cover for Int med-Dr Borjas. Objective Last Vital Signs Date Time Temp Pulse Resp B/P Pulse Ox O2 Delivery O2 Flow Rate FiO2 06/15/16 16:04 98.0 70 21 125/57 95 Nasal Cannula 2.0 06/15/16 12:37 28 Laboratory Tests Test 06/15/16 05:45 White Blood Count 12.1 K/UL (4.8-10.8) H Red Blood Count 3.29 M/UL (4.20-5.40) L Hemoglobin 9.9 G/DL (12.0-16.0) L Hematocrit 31.8 % (37.0-47.0) L Mean Corpuscular Volume 97 FL (80-99) Mean Corpuscular Hemoglobin 30.0 PG (27.0-31.0) Mean Corpuscular Hemoglobin Concent 31.0 G/DL (32.0-36.0) L Red Cell Distribution Width 16.1 % (11.6-14.8) H Platelet Count 314 K/UL (150-450) Mean Platelet Volume 6.8 FL (6.5-10.1) Neutrophils (%) (Auto) 70.9 % (45.0-75.0) Lymphocytes (%) (Auto) 16.4 % (20.0-45.0) L Monocytes (%) (Auto) 5.3 % (1.0-10.0) Eosinophils (%) (Auto) 7.0 % (0.0-3.0) H Basophils (%) (Auto) 0.4 % (0.0-2.0) Sodium Level 149 mEQ/L (135-145) H Potassium Level 4.0 mEQ/L (3.4-4.9) Chloride Level 105 mEQ/L (98-107) Carbon Dioxide Level 36 mEQ/L (20-30) H Anion Gap 8 (5-15) Blood Urea Nitrogen 35 mg/dL (7-23) H Creatinine 0.8 mg/dL (0.5-0.9) Estimat Glomerular Filtration Rate mL/min (>60) Glucose Level 101 mg/dL (74-106) Calcium Level 9.5 mg/dL (8.6-10.2) Troponin I < 0.30 ng/mL (<=0.30) Pro-B-Type Natriuretic Peptide 790 pg/mL (0-450) H Microbiology Date/Time Source Procedure Growth Status 06/13/16 19:10 Blood Blood Culture - Preliminary NO GROWTH AFTER 24 HOURS Resulted 06/13/16 18:55 Blood Blood Culture - Preliminary NO GROWTH AFTER 24 HOURS Resulted 06/14/16 14:00 Urine,Clean Catch Urine Culture - Preliminary NO GROWTH Resulted 06/13/16 19:20 Urine,Clean Catch Urine Culture - Preliminary Gram Negative Bacillus 1 Resulted Intake and Output 06/14/16 06/15/16 19:00 07:00 Intake Total 1843 ml 1270 ml Output Total 300 ml 400 ml Balance 1543 ml 870 ml Intake Oral 430 ml Free Water 300 ml 150 ml IV Total 833 ml 450 ml Tube Feeding 280 ml 670 ml Output Urine Total 300 ml 400 ml # Voids 2 # Bowel Movements 1 Objective General: alert, cooperative, no distress, appears stated age Head: normocephalic, without obvious abnormality, atraumatic Eyes: conjunctivae/corneas clear. PERRL, EOM's intact Throat: lips, mucosa, and tongue normal. MMM Neck: supple, symmetrical, trachea midline, and no JVD Lungs: Few exp wheezes and crackles at deandra bases; otherwise, clear to auscultation bilaterally Heart: regular rate and rhythm, S1, S2 normal, no murmur, click, rub or gallop Abdomen: soft, non-tender, non-distended, bowel sounds normal; no masses or organomegaly Extremities: extremities normal, atraumatic, no cyanosis or edema Pulses: 2+ and symmetric Skin: skin color, texture, turgor normal; no rashes or lesions Neurologic: grossly normal, no focal deficits Assessment/Plan Problem List: (1) Shortness of breath (2) Respiratory failure Assessment & Plan: COPD and CHF. Await cardiology consult. (3) Hypertension (4) COPD (chronic obstructive pulmonary disease) (5) CHF (congestive heart failure) Assessment & Plan: Await cardiology consult. (6) Diabetes mellitus, type II Assessment & Plan: Cont novolog sliding scale. (7) Cerebral vascular disease (8) Leukocytosis (9) Alzheimer's dementia (10) Hypothyroidism Assessment & Plan: Cont synthroid (11) UTI (urinary tract infection) Assessment & Plan: Gram neg rods-Await ID and sensitivities. Cont zosyn and vanco for now. Status: not improved RADHA BERMAN Jun 15, 2016 16:26
[2016-06-15 19:57] VITALS: BP 133/62
--- NOTE | 2016-06-15 20:28 | Consultation ---
DATE OF CONSULTATION: 06/15/2016 INFECTIOUS DISEASES CONSULTATION CONSULTING PHYSICIAN: Yannick Contreras M.D. REFERRING PHYSICIAN: Yeimi Razo M.D. REASON FOR CONSULTATION: Evaluation of patient for urinary tract infection, antibiotic management. HISTORY OF PRESENT ILLNESS: The patient is an 89-year-old female with multiple medical problems listed below, who was admitted to this medical center due to shortness of breath. The patient was found to have urinary tract infection followed with sepsis, has been started on IV antibiotics. Infectious Disease consultation requested for further evaluation of antibiotic management. PAST MEDICAL HISTORY: 1. Dementia. 2. Hypertension. 3. CHF. 4. CVA. 5. Diabetes. 6. Dysphagia, status post PEG placement. MEDICATIONS: The patient received Zosyn and vancomycin. ALLERGIES: No known drug allergies. SOCIAL HISTORY: Negative for alcohol, drug or smoking. FAMILY HISTORY: Noncontributory. REVIEW OF SYSTEMS: , unable to provide much information. PHYSICAL EXAMINATION: VITAL SIGNS: Pulse 56, respiratory rate 18, blood pressure 112/51, and temperature 97.9 degrees. HEENT: Mild pale conjunctivae. No icterus. NECK: Supple. CHEST: Coarse breathing sounds. HEART: S1 and S2. ABDOMEN: Soft and nontender. EXTREMITIES: No cyanosis. NEUROLOGICAL: Awake. LABORATORY AND DIAGNOSTIC DATA: White blood cells at the time of admission was 17 and today dropped to 12, hemoglobin 9.9 and platelets 214,000. Urinalysis shows pyuria. BUN 35 and creatinine 0.8. Chest x-ray mild congestive heart failure with small basilar pleural effusion. Urine culture from 06/13/2016 is growing gram-negative hector. Blood culture is pending. ASSESSMENT: The patient is an 89-year-old female with urinary tract infection, congestive heart failure, sepsis due to urinary tract infection. The patient received one dose of Zosyn and white cell count has improved. We will continue with antibiotic treatment. PLAN: 1. We will start the patient on IV Rocephin. 2. Monitor CBC. 3. Monitor BMP. 4. Monitor cultures (blood and urine). 5. Monitor the patient's chest x-ray. 6. Based on the patient's clinical course and labs, we will do further recommendation. Thank you, Dr. Razo, for allowing me to participate in the care of this patient. I will follow the patient with you during this hospitalization. Yannick Contreras M.D. DR: [place] JOB#: [id number] CC:
--- NOTE | 2016-06-15 22:24 | Pulmonology Progress Note ---
Assessment/Plan Problems: (1) Sepsis (2) ANNELIESE (acute kidney injury) (3) Hypoxia (4) COPD (chronic obstructive pulmonary disease) (5) Diabetes mellitus, type II (6) Cerebral vascular disease Assessment/Plan improving continue antibioitics check cultures dvt prohylaxis continue IV fluids check electroltyes all notes, meds reviewed. Subjective ROS Limited/Unobtainable: No Interval Events: getting better Allergies: Coded Allergies: No Known Allergies (Unverified , 06/13/16) Objective Last 24 Hour Vital Signs Date Time Temp Pulse Resp B/P Pulse Ox O2 Delivery O2 Flow Rate FiO2 06/15/16 19:57 99.1 93 20 133/62 91 Room Air 06/15/16 19:10 89 20 99 Room Air 06/15/16 19:00 85 22 92 Room Air 06/15/16 19:00 92 Room Air 06/15/16 19:00 Room Air 06/15/16 16:04 98.0 70 21 125/57 95 Nasal Cannula 2.0 06/15/16 12:37 91 20 99 Nasal Cannula 2.0 28 06/15/16 12:27 28 06/15/16 12:27 91 22 95 Nasal Cannula 2.0 28 06/15/16 11:26 97.6 94 21 125/61 95 Nasal Cannula 2.0 06/15/16 08:07 97.9 91 21 112/51 95 Nasal Cannula 2.0 06/15/16 07:31 91 20 95 Nasal Cannula 2.0 28 06/15/16 07:21 91 22 95 Nasal Cannula 2.0 28 06/15/16 07:21 Nasal Cannula 2.0 28 06/15/16 07:21 28 06/15/16 07:21 95 Nasal Cannula 2.0 28 06/15/16 04:00 98.2 89 20 116/61 93 Nasal Cannula 3.0 06/15/16 01:25 90 20 96 Nasal Cannula 3.0 32 06/15/16 01:12 28 06/15/16 01:12 89 22 92 Nasal Cannula 2.0 28 06/15/16 00:00 98.6 89 20 129/56 94 Nasal Cannula 3.0 Intake and Output 06/14/16 06/15/16 19:00 07:00 Intake Total 1843 ml 1270 ml Output Total 300 ml 400 ml Balance 1543 ml 870 ml Intake Oral 430 ml Free Water 300 ml 150 ml IV Total 833 ml 450 ml Tube Feeding 280 ml 670 ml Output Urine Total 300 ml 400 ml # Voids 2 # Bowel Movements 1 Objective Lines, tubes and drains: peripheral, HEENT: normocephalic, atraumatic Neck: non-tender Respiratory/Chest: chest wall non-tender Cardiovascular/Chest: normal peripheral pulses Abdomen: normal bowel sounds, feeding tube, other Genitourinary/Rectal: normal genital exam Extremities: normal range of motion, non-tender Microbiology Date/Time Source Procedure Growth Status 06/13/16 19:10 Blood Blood Culture - Preliminary NO GROWTH AFTER 24 HOURS Resulted 06/13/16 18:55 Blood Blood Culture - Preliminary NO GROWTH AFTER 24 HOURS Resulted 06/14/16 14:00 Urine,Clean Catch Urine Culture - Preliminary NO GROWTH Resulted 06/13/16 19:20 Urine,Clean Catch Urine Culture - Preliminary Gram Negative Bacillus 1 Resulted Laboratory Tests 06/15/16 05:45: White Blood Count 12.1H, Red Blood Count 3.29L, Hemoglobin 9.9L, Hematocrit 31.8L, Mean Corpuscular Volume 97, Mean Corpuscular Hemoglobin 30.0, Mean Corpuscular Hemoglobin Concent 31.0L, Red Cell Distribution Width 16.1H, Platelet Count 314, Mean Platelet Volume 6.8, Neutrophils (%) (Auto) 70.9, Lymphocytes (%) (Auto) 16.4L, Monocytes (%) (Auto) 5.3, Eosinophils (%) (Auto) 7.0H, Basophils (%) (Auto) 0.4, Sodium Level 149H, Potassium Level 4.0, Chloride Level 105, Carbon Dioxide Level 36H, Anion Gap 8, Blood Urea Nitrogen 35H, Creatinine 0.8, Estimat Glomerular Filtration Rate , Glucose Level 101, Calcium Level 9.5, Troponin I < 0.30, Pro-B-Type Natriuretic Peptide 790H Current Medications Medications (Trade) Dose Ordered Sig/Mallory Route PRN Reason Start Time Stop Time Status Last Admin Dose Admin Acetaminophen (Tylenol) 650 mg Q4H PRN ORAL Mild Pain (Pain Scale 1-3) 06/14/16 22:00 07/14/16 21:59 Acetaminophen (Tylenol) 650 mg Q4H PRN ORAL Mild Pain/Temp > 100.5 06/14/16 22:00 07/14/16 21:59 Acetaminophen/ Hydrocodone Bitart ([place] 5/325) 1 tab Q4H PRN ORAL Moderate Pain (Pain Scale 4-6) 06/14/16 22:00 06/21/16 21:59 Albuterol Sulfate (Proventil) 2.5 mg Q6HRT HHN 06/15/16 01:00 06/20/16 00:59 06/15/16 19:00 Ceftriaxone Sodium/Sodium Chloride (Rocephin/Sodium Chloride) 55 ml @ 110 mls/hr Q24H IVPB 06/15/16 11:00 06/22/16 10:59 06/15/16 10:49 Clonidine HCl (Catapres) 0.1 mg DAILY PRN ORAL sbp>160 06/14/16 21:00 07/14/16 20:59 Dextrose (Dextrose 50%) STAT PRN IV Hypoglycemia 06/15/16 06:30 07/15/16 06:29 Diphenhydramine HCl (Benadryl) 25 mg Q6H PRN NG Itching or rash 06/15/16 00:30 07/15/16 00:29 06/15/16 00:58 Docusate Sodium (Colace) 100 mg TID PRN ORAL Constipation 06/15/16 09:00 07/15/16 08:59 Heparin Sodium (Porcine) (Heparin 5000 units/ml) 5,000 units EVERY 12 HOURS SUBQ 06/14/16 21:00 07/14/16 20:59 06/15/16 20:29 Insulin Aspart (NovoLOG) Q6HR SUBQ 06/15/16 00:00 07/15/16 00:00 06/15/16 12:31 Levothyroxine Sodium (Synthroid) 25 mcg DAILY@0630 ORAL 06/15/16 06:30 07/15/16 06:29 06/15/16 06:04 Morphine Sulfate (Morphine Sulfate) 2 mg Q4H PRN IVP Severe Pain (Pain Scale 7-10) 06/14/16 22:00 06/21/16 21:59 Ondansetron HCl 4 mg 4 mg Q6H PRN IVP Nausea & Vomiting 06/14/16 22:00 07/14/16 21:59 Sodium Chloride (0.45% NS 1000ml) 1,000 ml @ 50 mls/hr Q20H IV 06/14/16 21:00 07/14/16 20:59 06/14/16 21:00 MICHELLE ROSE Jun 15, 2016 22:24
[2016-06-16] VITALS (7 sets, daily range): BP systolic 111–132; BP diastolic 57–76
[2016-06-16] MEDS: Albuterol ud Inhalation HHN SCH ×4 (00:02→19:28)
[2016-06-16] MEDS: NovoLOG Insulin Flexpen SUBQ SCH ×4 (05:49→18:24)
[2016-06-16] MEDS: Levothyroxine 25mcg tab ORAL SCH (06:15)
[2016-06-16 07:17] LABS: BASOPHILS % (AUTO) 0.4 % (0.0-2.0); EOSINOPHILS % (AUTO) 8.7 % (0.0-3.0); LYMPHOCYTES % (AUTO) 20.1 % (20.0-45.0); MEAN CORPUSCULAR HEMOGLOBIN 29.7 PG (27.0-31.0); MEAN CORPUSCULAR HGB CONC 31.2 G/DL (32.0-36.0); MEAN CORPUSCULAR VOLUME 95 FL (80-99); MEAN PLATELET VOLUME 6.6 FL (6.5-10.1); NEUTROPHILS % (AUTO) 65.8 % (45.0-75.0); PLATELET COUNT 285 K/UL (150-450); RED BLOOD COUNT 3.25 M/UL (4.20-5.40); RED CELL DISTRIBUTION WIDTH 15.4 % (11.6-14.8); WHITE BLOOD COUNT 11.6 K/UL (4.8-10.8)
[2016-06-16 07:21] LABS: ANION GAP 8 (5-15); CALCIUM 9.3 mg/dL (8.6-10.2); CARBON DIOXIDE 33 mEQ/L (20-30); CHLORIDE 106 mEQ/L (98-107); CREATININE 0.7 mg/dL (0.5-0.9); HEMOLYSIS 5; POTASSIUM 4.4 mEQ/L (3.4-4.9); SODIUM 147 mEQ/L (135-145)
[2016-06-16] MEDS: Heparin 5000 units/ml inj SUBQ SCH ×2 (09:42→21:14)
[2016-06-16] MEDS: cefTRIAXone 1 GM in NS 55 ML IVPB SCH (11:31)
--- NOTE | 2016-06-16 15:56 | Cardiology Report ---
APPROVED REPORT EKG Measurement Heart [id number] Sinus tachycardia with occasional premature ventricular complexes Possible Anterior infarct, age undetermined Abnormal ECG Baseline artifact precludes full analysis.
[2016-06-16 19:22] LABS: ANISOCYTOSIS 1+; BAND NEUTROPHILS % (MANUAL) 5 % (0-8); BASOPHILS % (MANUAL) 0 % (0-2); EOSINOPHILS % (MANUAL) 7 % (0-3); LYMPHOCYTES % (MANUAL) 16 % (20-45); MACROCYTES 1+; NEUTROPHILS % (MANUAL) 66 % (45-75); PLATELET ESTIMATE ADEQUATE; PLATELET MORPHOLOGY NORMAL; POLYCHROMASIA 1+; TOTAL CELLS COUNTED 100
--- NOTE | 2016-06-16 20:01 | Infectious Diseases Prog Note ---
Assessment/Plan Assessment/Plan A: The patient is an 89-year-old female UTI UCX GNR Ro Bacteremia Dementia HTN CHF CVA Diabetes Dysphagia, status post PEG placement CHF PLAN: cont patient on IV Rocephin d # 2 / 7 , upon DC will change to Kelfex 500 qid to complete the course Monitor CB Monitor BMP. Monitor cultures (blood ) Monitors chest x-ray Subjective Constitutional: Denies: anorexia, chills, drenching sweats, fatigue, fever, no symptoms, other Allergies: Coded Allergies: No Known Allergies (Unverified , 06/13/16) Objective Vital Signs Last 24 Hour Vital Signs Date Time Temp Pulse Resp B/P Pulse Ox O2 Delivery O2 Flow Rate FiO2 06/16/16 19:31 90 16 87 Nasal Cannula 2.0 28 06/16/16 19:30 21 06/16/16 19:29 92 16 85 Room Air 21 06/16/16 19:25 Room Air 21 06/16/16 19:25 85 Room Air 21 06/16/16 16:00 97.7 90 20 131/76 91 Room Air 06/16/16 12:30 90 20 99 Room Air 06/16/16 12:20 90 20 90 Room Air 06/16/16 12:00 98.4 89 20 124/57 87 Room Air 06/16/16 07:33 97.9 89 20 126/67 86 Room Air 06/16/16 07:13 93 20 99 Room Air 06/16/16 07:13 Room Air 06/16/16 07:05 89 22 90 Room Air 06/16/16 07:04 90 Room Air 06/16/16 04:00 98.8 89 20 131/59 90 Room Air 06/16/16 00:08 91 20 99 Room Air 06/16/16 00:02 89 22 92 Room Air 06/16/16 00:00 98.4 91 18 111/75 90 Room Air 06/15/16 19:57 99.1 93 20 133/62 91 Room Air Height (Feet): 5 Height (Inches): 3.00 Weight (Pounds): 120 HEENT: anicteric Respiratory/Chest: normal breath sounds Cardiovascular: regular rhythm Abdomen: soft, non tender Microbiology Date/Time Source Procedure Growth Status 06/14/16 14:00 Urine,Clean Catch Urine Culture - Final Proteus Mirabilis Complete Laboratory Tests Test 06/16/16 04:55 White Blood Count 11.6 K/UL (4.8-10.8) H Red Blood Count 3.25 M/UL (4.20-5.40) L Hemoglobin 9.7 G/DL (12.0-16.0) L Hematocrit 31.0 % (37.0-47.0) L Mean Corpuscular Volume 95 FL (80-99) Mean Corpuscular Hemoglobin 29.7 PG (27.0-31.0) Mean Corpuscular Hemoglobin Concent 31.2 G/DL (32.0-36.0) L Red Cell Distribution Width 15.4 % (11.6-14.8) H Platelet Count 285 K/UL (150-450) Mean Platelet Volume 6.6 FL (6.5-10.1) Neutrophils (%) (Auto) 65.8 % (45.0-75.0) Lymphocytes (%) (Auto) 20.1 % (20.0-45.0) Monocytes (%) (Auto) 5.0 % (1.0-10.0) Eosinophils (%) (Auto) 8.7 % (0.0-3.0) H Basophils (%) (Auto) 0.4 % (0.0-2.0) Differential Total Cells Counted 100 Neutrophils % (Manual) 66 % (45-75) Lymphocytes % (Manual) 16 % (20-45) L Monocytes % (Manual) 6 % (1-10) Eosinophils % (Manual) 7 % (0-3) H Basophils % (Manual) 0 % (0-2) Band Neutrophils 5 % (0-8) Platelet Estimate Adequate Platelet Morphology Normal Polychromasia 1+ Anisocytosis 1+ Macrocytosis 1+ Erythrocyte Sedimentation Rate 82 MM/HR (0-42) H Reticulocyte Count Pending Sodium Level 147 mEQ/L (135-145) H Potassium Level 4.4 mEQ/L (3.4-4.9) Chloride Level 106 mEQ/L (98-107) Carbon Dioxide Level 33 mEQ/L (20-30) H Anion Gap 8 (5-15) Blood Urea Nitrogen 27 mg/dL (7-23) H Creatinine 0.7 mg/dL (0.5-0.9) Estimat Glomerular Filtration Rate mL/min (>60) Glucose Level 116 mg/dL (74-106) H Calcium Level 9.3 mg/dL (8.6-10.2) Iron Level 28 ug/dL (37-145) L Total Iron Binding Capacity 232 ug/dL (250-400) L Percent Iron Saturation 12 % (15-50) L Unsaturated Iron Binding 204 ug/dL (112-346) Lactate Dehydrogenase 249 U/L (135-230) H Carcinoembryonic Antigen 4.2 ng/mL H Vitamin B12 Level 498 pg/mL (211-946) Folate Pending Current Medications Medications (Trade) Dose Ordered Sig/Mallory Route PRN Reason Start Time Stop Time Status Last Admin Dose Admin Acetaminophen (Tylenol) 650 mg Q4H PRN ORAL Mild Pain (Pain Scale 1-3) 06/14/16 22:00 07/14/16 21:59 Acetaminophen (Tylenol) 650 mg Q4H PRN ORAL Mild Pain/Temp > 100.5 06/14/16 22:00 07/14/16 21:59 Acetaminophen/ Hydrocodone Bitart ([place] 5/325) 1 tab Q4H PRN ORAL Moderate Pain (Pain Scale 4-6) 06/14/16 22:00 06/21/16 21:59 Albuterol Sulfate (Proventil) 2.5 mg Q6HRT HHN 06/15/16 01:00 06/20/16 00:59 06/16/16 19:28 Ceftriaxone Sodium/Sodium Chloride (Rocephin/Sodium Chloride) 55 ml @ 110 mls/hr Q24H IVPB 06/15/16 11:00 06/22/16 10:59 06/16/16 11:31 Clonidine HCl (Catapres) 0.1 mg DAILY PRN ORAL sbp>160 06/14/16 21:00 07/14/16 20:59 Dextrose (Dextrose 50%) STAT PRN IV Hypoglycemia 06/15/16 06:30 07/15/16 06:29 Diphenhydramine HCl (Benadryl) 25 mg Q6H PRN NG Itching or rash 06/15/16 00:30 07/15/16 00:29 06/15/16 00:58 Docusate Sodium (Colace) 100 mg TID PRN ORAL Constipation 06/15/16 09:00 07/15/16 08:59 Heparin Sodium (Porcine) (Heparin 5000 units/ml) 5,000 units EVERY 12 HOURS SUBQ 06/14/16 21:00 07/14/16 20:59 06/16/16 09:42 Insulin Aspart (NovoLOG) Q6HR SUBQ 06/15/16 00:00 07/15/16 00:00 06/16/16 18:24 Levothyroxine Sodium (Synthroid) 25 mcg DAILY@0630 ORAL 06/15/16 06:30 07/15/16 06:29 06/16/16 06:15 Morphine Sulfate (Morphine Sulfate) 2 mg Q4H PRN IVP Severe Pain (Pain Scale 7-10) 06/14/16 22:00 06/21/16 21:59 Ondansetron HCl 4 mg 4 mg Q6H PRN IVP Nausea & Vomiting 06/14/16 22:00 07/14/16 21:59 Sodium Chloride (0.45% NS 1000ml) 1,000 ml @ 50 mls/hr Q20H IV 06/14/16 21:00 07/14/16 20:59 06/15/16 23:00 KIMO CEDEÑO M.D. Jun 16, 2016 20:01
[2016-06-16 20:05] LABS: PATH BLOOD SMEAR/OMC SENT TO PATHOLOGIST
[2016-06-16 20:20] LABS: PROTHROMBIN TIME 9.9 SEC (9.30-11.50)
[2016-06-16 20:37] LABS: RETICULOCYTE COUNT 2.5 % (0.0-2.0)
[2016-06-17] MEDS: Albuterol ud Inhalation HHN SCH ×3 (01:00→12:48)
[2016-06-17 04:00] VITALS: BP 117/56
[2016-06-17] MEDS: DiphenhydrAMINE 25mg/10ml Elixir NG PRN ×3 (04:04→17:29)
[2016-06-17] MEDS: NovoLOG Insulin Flexpen SUBQ SCH ×4 (06:00→17:03)
[2016-06-17] MEDS: Levothyroxine 25mcg tab ORAL SCH (06:28)
[2016-06-17 07:25] LABS: BASOPHILS % (AUTO) 0.9 % (0.0-2.0); EOSINOPHILS % (AUTO) 7.9 % (0.0-3.0); LYMPHOCYTES % (AUTO) 19.1 % (20.0-45.0); MEAN CORPUSCULAR HGB CONC 30.3 G/DL (32.0-36.0); MEAN CORPUSCULAR VOLUME 96 FL (80-99); MEAN PLATELET VOLUME 6.4 FL (6.5-10.1); MONOCYTES % (AUTO) 3.8 % (1.0-10.0); NEUTROPHILS % (AUTO) 68.4 % (45.0-75.0); PLATELET COUNT 271 K/UL (150-450); RED BLOOD COUNT 3.52 M/UL (4.20-5.40); RED CELL DISTRIBUTION WIDTH 15.7 % (11.6-14.8); WHITE BLOOD COUNT 10.7 K/UL (4.8-10.8)
[2016-06-17 07:32] LABS: ALANINE AMINOTRANSFERASE 9 U/L (3-33); ANION GAP 11 (5-15); ASPARTATE AMINO TRANSFERASE 16 U/L (5-40); CALCIUM 9.3 mg/dL (8.6-10.2); CARBON DIOXIDE 31 mEQ/L (20-30); CHLORIDE 103 mEQ/L (98-107); CREATININE 0.9 mg/dL (0.5-0.9); HEMOLYSIS 18; MAGNESIUM 2.2 mg/dL (1.7-2.5); PHOSPHORUS 4.7 mg/dL (2.5-4.8); POTASSIUM 4.9 mEQ/L (3.4-4.9); SODIUM 145 mEQ/L (135-145)
[2016-06-17 07:41] VITALS: BP 109/72
[2016-06-17] MEDS: Norco 5mg/325mg tab ORAL PRN ×2 (08:39→12:59)
[2016-06-17] MEDS: Heparin 5000 units/ml inj SUBQ SCH (08:41)
[2016-06-17] MEDS: cefTRIAXone 1 GM in NS 55 ML IVPB SCH (10:46)
[2016-06-17 12:00] VITALS: BP 127/54
--- NOTE | 2016-06-17 12:51 | Infectious Diseases Prog Note ---
Assessment/Plan Assessment/Plan A: The patient is an 89-year-old female UTI UCX P Mirabilis Ro Bacteremia Dementia HTN CHF CVA Diabetes Dysphagia, status post PEG placement CHF PLAN: cont patient on IV Rocephin d # 3 / 7 , upon DC will change to Kelfex 500 qid to complete the course Monitor CB Monitor BMP. Monitor cultures (blood ) Monitors chest x-ray Subjective Constitutional: Denies: anorexia, chills, drenching sweats, fatigue, fever, no symptoms, other Allergies: Coded Allergies: No Known Allergies (Unverified , 06/13/16) Objective Vital Signs Last 24 Hour Vital Signs Date Time Temp Pulse Resp B/P Pulse Ox O2 Delivery O2 Flow Rate FiO2 06/17/16 07:41 98.2 94 20 109/72 93 Room Air 06/17/16 07:03 88 18 98 Nasal Cannula 2.0 28 06/17/16 06:53 84 Nasal Cannula 2.0 28 06/17/16 06:53 Nasal Cannula 2.0 28 06/17/16 06:53 84 20 95 Nasal Cannula 2.0 28 06/17/16 06:53 28 06/17/16 04:00 97.9 89 16 117/56 93 Nasal Cannula 06/17/16 01:05 88 18 98 Nasal Cannula 2.0 28 06/17/16 01:01 28 06/17/16 01:00 70 20 95 Nasal Cannula 2.0 28 06/16/16 23:55 98.1 86 16 117/58 93 Nasal Cannula 06/16/16 20:00 99.3 90 16 132/63 90 Nasal Cannula 06/16/16 19:31 90 16 87 Nasal Cannula 2.0 28 06/16/16 19:30 21 06/16/16 19:29 92 16 85 Room Air 21 06/16/16 19:25 Room Air 21 06/16/16 19:25 85 Room Air 21 06/16/16 16:00 97.7 90 20 131/76 91 Room Air Height (Feet): 5 Height (Inches): 3.00 Weight (Pounds): 120 HEENT: atraumatic Respiratory/Chest: lungs clear Cardiovascular: regular rhythm Abdomen: soft, non tender Microbiology Date/Time Source Procedure Growth Status 06/14/16 14:00 Urine,Clean Catch Urine Culture - Final Proteus Mirabilis Complete Laboratory Tests Test 06/16/16 19:30 06/17/16 06:15 Prothrombin Time 9.9 SEC (9.30-11.50) Prothromb Time International Ratio 1.0 (0.9-1.1) Activated Partial Thromboplast Time 25 SEC (23-33) White Blood Count 10.7 K/UL (4.8-10.8) Red Blood Count 3.52 M/UL (4.20-5.40) L Hemoglobin 10.2 G/DL (12.0-16.0) L Hematocrit 33.8 % (37.0-47.0) L Mean Corpuscular Volume 96 FL (80-99) Mean Corpuscular Hemoglobin 29.0 PG (27.0-31.0) Mean Corpuscular Hemoglobin Concent 30.3 G/DL (32.0-36.0) L Red Cell Distribution Width 15.7 % (11.6-14.8) H Platelet Count 271 K/UL (150-450) Mean Platelet Volume 6.4 FL (6.5-10.1) L Neutrophils (%) (Auto) 68.4 % (45.0-75.0) Lymphocytes (%) (Auto) 19.1 % (20.0-45.0) L Monocytes (%) (Auto) 3.8 % (1.0-10.0) Eosinophils (%) (Auto) 7.9 % (0.0-3.0) H Basophils (%) (Auto) 0.9 % (0.0-2.0) Sodium Level 145 mEQ/L (135-145) Potassium Level 4.9 mEQ/L (3.4-4.9) Chloride Level 103 mEQ/L (98-107) Carbon Dioxide Level 31 mEQ/L (20-30) H Anion Gap 11 (5-15) Blood Urea Nitrogen 26 mg/dL (7-23) H Creatinine 0.9 mg/dL (0.5-0.9) Estimat Glomerular Filtration Rate mL/min (>60) Glucose Level 112 mg/dL (74-106) H Calcium Level 9.3 mg/dL (8.6-10.2) Phosphorus Level 4.7 mg/dL (2.5-4.8) Magnesium Level 2.2 mg/dL (1.7-2.5) Total Bilirubin < 0.2 mg/dL (0.0-1.2) Aspartate Amino Transf (AST/SGOT) 16 U/L (5-40) Alanine Aminotransferase (ALT/SGPT) 9 U/L (3-33) Alkaline Phosphatase 63 U/L (35-104) Total Protein 6.0 g/dL (6.6-8.7) L Albumin 3.0 g/dL (3.5-5.2) L Globulin 3.0 g/dL Albumin/Globulin Ratio 1.0 (1.0-2.7) Current Medications Medications (Trade) Dose Ordered Sig/Mallory Route PRN Reason Start Time Stop Time Status Last Admin Dose Admin Acetaminophen (Tylenol) 650 mg Q4H PRN ORAL Mild Pain (Pain Scale 1-3) 06/14/16 22:00 07/14/16 21:59 Acetaminophen (Tylenol) 650 mg Q4H PRN ORAL Mild Pain/Temp > 100.5 06/14/16 22:00 07/14/16 21:59 Acetaminophen/ Hydrocodone Bitart ([place] 5/325) 1 tab Q4H PRN ORAL Moderate Pain (Pain Scale 4-6) 06/14/16 22:00 06/21/16 21:59 06/17/16 08:39 Albuterol Sulfate (Proventil) 2.5 mg Q6HRT HHN 06/15/16 01:00 06/20/16 00:59 06/17/16 12:48 Ceftriaxone Sodium/Sodium Chloride (Rocephin/Sodium Chloride) 55 ml @ 110 mls/hr Q24H IVPB 06/15/16 11:00 06/22/16 10:59 06/17/16 10:46 Clonidine HCl (Catapres) 0.1 mg DAILY PRN ORAL sbp>160 06/14/16 21:00 07/14/16 20:59 Dextrose (Dextrose 50%) STAT PRN IV Hypoglycemia 06/15/16 06:30 07/15/16 06:29 Diphenhydramine HCl (Benadryl) 25 mg Q6H PRN NG Itching or rash 06/15/16 00:30 07/15/16 00:29 06/17/16 10:46 Docusate Sodium (Colace) 100 mg TID PRN ORAL Constipation 06/15/16 09:00 07/15/16 08:59 Heparin Sodium (Porcine) (Heparin 5000 units/ml) 5,000 units EVERY 12 HOURS SUBQ 06/14/16 21:00 07/14/16 20:59 06/17/16 08:41 Insulin Aspart (NovoLOG) Q6HR SUBQ 06/15/16 00:00 07/15/16 00:00 06/17/16 11:35 Levothyroxine Sodium (Synthroid) 25 mcg DAILY@0630 ORAL 06/15/16 06:30 07/15/16 06:29 06/17/16 06:28 Morphine Sulfate (Morphine Sulfate) 2 mg Q4H PRN IVP Severe Pain (Pain Scale 7-10) 06/14/16 22:00 06/21/16 21:59 Ondansetron HCl 4 mg 4 mg Q6H PRN IVP Nausea & Vomiting 06/14/16 22:00 07/14/16 21:59 Sodium Chloride (0.45% NS 1000ml) 1,000 ml @ 50 mls/hr Q20H IV 06/14/16 21:00 07/14/16 20:59 06/17/16 10:43 KIMO [id number] M.D. Jun 17, 2016 12:50
--- NOTE | 2016-06-17 14:34 | Pulmonology Progress Note ---
Assessment/Plan Problems: (1) Sepsis (2) ANNELIESE (acute kidney injury) (3) Hypoxia (4) COPD (chronic obstructive pulmonary disease) (5) Diabetes mellitus, type II (6) Cerebral vascular disease Assessment/Plan no new events. improving continue antibioitics check cultures dvt prohylaxis continue IV fluids check electroltyes all notes, meds reviewed. Subjective ROS Limited/Unobtainable: No Interval Events: late note 06/16/16 no new complains, looks asymptoamtic Allergies: Coded Allergies: No Known Allergies (Unverified , 06/13/16) Objective Last 24 Hour Vital Signs Date Time Temp Pulse Resp B/P Pulse Ox O2 Delivery O2 Flow Rate FiO2 06/17/16 12:58 89 18 98 Nasal Cannula 2.0 28 06/17/16 12:48 28 06/17/16 12:48 84 20 95 Nasal Cannula 2.0 28 06/17/16 12:00 97.9 86 20 127/54 88 Room Air 06/17/16 07:41 98.2 94 20 109/72 93 Room Air 06/17/16 07:03 88 18 98 Nasal Cannula 2.0 28 06/17/16 06:53 84 Nasal Cannula 2.0 28 06/17/16 06:53 Nasal Cannula 2.0 28 06/17/16 06:53 84 20 95 Nasal Cannula 2.0 28 06/17/16 06:53 28 06/17/16 04:00 97.9 89 16 117/56 93 Nasal Cannula 06/17/16 01:05 88 18 98 Nasal Cannula 2.0 28 06/17/16 01:01 28 06/17/16 01:00 70 20 95 Nasal Cannula 2.0 28 06/16/16 23:55 98.1 86 16 117/58 93 Nasal Cannula 06/16/16 20:00 99.3 90 16 132/63 90 Nasal Cannula 06/16/16 19:31 90 16 87 Nasal Cannula 2.0 28 06/16/16 19:30 21 06/16/16 19:29 92 16 85 Room Air 21 06/16/16 19:25 Room Air 21 06/16/16 19:25 85 Room Air 21 06/16/16 16:00 97.7 90 20 131/76 91 Room Air Intake and Output 06/16/16 06/17/16 19:00 07:00 Intake Total 605 ml 1610 ml Output Total 450 ml 550 ml Balance 155 ml 1060 ml Free Water 550 ml 250 ml IV Total 55 ml 200 ml Tube Feeding 660 ml Other 500 ml Output Urine Total 450 ml 550 ml # Voids 1 # Bowel Movements 2 1 Objective Lines, tubes and drains: peripheral, HEENT: normocephalic, atraumatic Neck: non-tender Respiratory/Chest: chest wall non-tender Cardiovascular/Chest: normal peripheral pulses Abdomen: normal bowel sounds, feeding tube, other Genitourinary/Rectal: normal genital exam Extremities: normal range of motion, non-tender Laboratory Tests 06/16/16 19:30: Prothrombin Time 9.9, Prothromb Time International Ratio 1.0, Activated Partial Thromboplast Time 25 06/17/16 06:15: White Blood Count 10.7, Red Blood Count 3.52L, Hemoglobin 10.2L, Hematocrit 33.8L, Mean Corpuscular Volume 96, Mean Corpuscular Hemoglobin 29.0, Mean Corpuscular Hemoglobin Concent 30.3L, Red Cell Distribution Width 15.7H, Platelet Count 271, Mean Platelet Volume 6.4L, Neutrophils (%) (Auto) 68.4, Lymphocytes (%) (Auto) 19.1L, Monocytes (%) (Auto) 3.8, Eosinophils (%) (Auto) 7.9H, Basophils (%) (Auto) 0.9, Sodium Level 145, Potassium Level 4.9, Chloride Level 103, Carbon Dioxide Level 31H, Anion Gap 11, Blood Urea Nitrogen 26H, Creatinine 0.9, Estimat Glomerular Filtration Rate , Glucose Level 112H, Calcium Level 9.3, Phosphorus Level 4.7, Magnesium Level 2.2, Total Bilirubin < 0.2, Aspartate Amino Transf (AST/SGOT) 16, Alanine Aminotransferase (ALT/SGPT) 9 , Alkaline Phosphatase 63, Total Protein 6.0L, Albumin 3.0L, Globulin 3.0, Albumin/Globulin Ratio 1.0 Current Medications Medications (Trade) Dose Ordered Sig/Mallory Route PRN Reason Start Time Stop Time Status Last Admin Dose Admin Acetaminophen (Tylenol) 650 mg Q4H PRN ORAL Mild Pain (Pain Scale 1-3) 06/14/16 22:00 07/14/16 21:59 Acetaminophen (Tylenol) 650 mg Q4H PRN ORAL Mild Pain/Temp > 100.5 06/14/16 22:00 07/14/16 21:59 Acetaminophen/ Hydrocodone Bitart ([place] 5/325) 1 tab Q4H PRN ORAL Moderate Pain (Pain Scale 4-6) 06/14/16 22:00 06/21/16 21:59 06/17/16 12:59 Albuterol Sulfate (Proventil) 2.5 mg Q6HRT HHN 06/15/16 01:00 06/20/16 00:59 06/17/16 12:48 Ceftriaxone Sodium/Sodium Chloride (Rocephin/Sodium Chloride) 55 ml @ 110 mls/hr Q24H IVPB 06/15/16 11:00 06/22/16 10:59 06/17/16 10:46 Clonidine HCl (Catapres) 0.1 mg DAILY PRN ORAL sbp>160 06/14/16 21:00 07/14/16 20:59 Dextrose (Dextrose 50%) STAT PRN IV Hypoglycemia 06/15/16 06:30 07/15/16 06:29 Diphenhydramine HCl (Benadryl) 25 mg Q6H PRN NG Itching or rash 06/15/16 00:30 07/15/16 00:29 06/17/16 10:46 Docusate Sodium (Colace) 100 mg TID PRN ORAL Constipation 06/15/16 09:00 07/15/16 08:59 Heparin Sodium (Porcine) (Heparin 5000 units/ml) 5,000 units EVERY 12 HOURS SUBQ 06/14/16 21:00 07/14/16 20:59 06/17/16 08:41 Insulin Aspart (NovoLOG) Q6HR SUBQ 06/15/16 00:00 07/15/16 00:00 06/17/16 11:35 Levothyroxine Sodium (Synthroid) 25 mcg DAILY@0630 ORAL 06/15/16 06:30 07/15/16 06:29 06/17/16 06:28 Morphine Sulfate (Morphine Sulfate) 2 mg Q4H PRN IVP Severe Pain (Pain Scale 7-10) 06/14/16 22:00 06/21/16 21:59 Ondansetron HCl 4 mg 4 mg Q6H PRN IVP Nausea & Vomiting 06/14/16 22:00 07/14/16 21:59 Sodium Chloride (0.45% NS 1000ml) 1,000 ml @ 50 mls/hr Q20H IV 06/14/16 21:00 07/14/16 20:59 06/17/16 10:43 MICHELLE ROSE Jun 17, 2016 14:34
[2016-06-17 16:00] VITALS: BP 105/57
[2016-06-17] MEDS ORDERED: Sterile Water Irrig 1000ml IRRIG ONE (18:24)
[2016-06-17] MEDS ORDERED: 1/2 NS 1000ml IV ONE (18:24)
[2016-06-17] MEDS ORDERED: Tubing IV Secondary IV ONE (18:24)
[2016-06-18 20:00] VITALS: BP 147/75
--- NOTE | 2016-06-18 23:08 | Discharge Summary 2 SIG ---
DATE OF ADMISSION: 06/13/2016 DATE OF DISCHARGE: 06/17/2016 CONSULTANTS: Yannick Contreras M.D. BRIEF HOSPITAL COURSE: The patient is an 89-year-old female with history of dementia, hypertension, congestive heart failure, history of CVA, diabetes, dysphagia with G-tube placement, COPD, and pneumonia in the past. She was brought in by ambulance from halfway facility secondary to shortness of breath and dyspnea. On evaluation at ED, laboratories showed leukocytosis. WBC was 117 with acute kidney injury, BUN 49, and creatinine 1.0. Chest x-ray showed no obvious lobar pneumonia. Urinalysis was grossly infected. Dr. Razo was consulted and was given bronchodilators. Dr. Contreras was consulted for antibiotic management. She received a dose of Zosyn and antibiotic was switched to Rocephin. Urine culture showed growth of Proteus mirabilis. Blood culture did not isolate any growth. Symptoms improved and the antibiotic was switched to p.o. and was discharged back to residential. FINAL DIAGNOSES: 1. Sepsis. 2. Acute kidney injury. 3. Urinary tract infection with Proteus. 4. Chronic obstructive pulmonary disease. 5. Dysphagia, on gastrostomy tube. 6. Hypertension. 7. Diabetes mellitus, type 2. 8. Severe dementia. Yeimi Razo M.D. I have been assigned to dictate discharge summary on this account and I was not involved in the patient's management. Diamond Dickey N.P. DR: PABLO JOB#: [id number] CC:
== END 2016-06-17 18:25 | DRG 872 ==
LOC: ENRESERVTM → ENRESERVDT → EDBD 19:07 → EMR 19:25 → 2E 19:53 → EDBEDREQ 20:51 → 4E 06-14 20:43
DX: A41.9 Sepsis, unspecified organism (principal); N17.9 Acute kidney failure, unspecified; R06.00 Dyspnea, unspecified; I50.9 Heart failure, unspecified; R13.10 Dysphagia, unspecified; J44.9 Chronic obstructive pulmonary disease, unspecified; Z43.1 Encounter for attention to gastrostomy; N39.0 Urinary tract infection, site not specified; F03.90 Unspecified dementia, unspecified severity, without behavioral disturbance, psychotic disturbance, mood disturbance, and anxiety; Z86.73 Personal history of transient ischemic attack (TIA), and cerebral infarction without residual deficits; B96.4 Proteus (mirabilis) (morganii) as the cause of diseases classified elsewhere; I10 Essential (primary) hypertension; E11.9 Type 2 diabetes mellitus without complications; R09.02 Hypoxemia
CPT/HCPCS: 36415; 71010; 76775; 80048; 80053; 81001; 81003; 82378; 82436; 82533; 82550; 82553; 82607; 82746; 82962; 83036; 83540; 83550; 83605; 83615; 83735; 83880; 83930; 83935; 84100; 84133; 84300; 84439; 84443; 84481; 84484; 84550; 85007; 85025; 85044; 85060; 85610; 85651; 85730; 87040; 87081; 87086; 87181; 89050; 93005; 94640; 94664; 94760; J1815

== ENCOUNTER 2016-07-28 13:23 | Inpatient (IN) | payer MEDICARE, OTHER ==
[2016-07-28] VITALS (7 sets, daily range): BP systolic 92–107; BP diastolic 40–64
[~2016-07-28] VITALS: Ht 167.6 cm; Wt 58.1 kg
[~2016-07-28 13:23] MED LIST: ACETAMINOPHEN325 M1 ORAL; CATAPRES0.1 MG ORAL; DOCUSATE SODIU100 MG ORAL; DUONEB 0.5-3(2.53 ML HHN; FERROUS SU300 MG/5 M ORAL; MULTI-DELYN237 ML GT; PEPCID20 MG ORAL; SINGULAIR10 MG ORAL; SYNTHROID25 MCG ORAL; VITAMIN C GT
[2016-07-28] MEDS ORDERED: MULTI-DELYN237 ML GT (13:47)
[2016-07-28] MEDS ORDERED: VITAMIN C500 M1 GT (13:47)
[2016-07-28] MEDS ORDERED: DUONEB 0.5-3(2.53 ML HHN (13:47)
[2016-07-28] MEDS ORDERED: ZOSYN 3.373.375 GM/1 IVPB (13:47)
[2016-07-28] MEDS ORDERED: AZITHROMYCIN500 M1 IVPB (13:47)
[2016-07-28] MEDS ORDERED: PEPCID40 MG/5 ML GT (13:47)
[2016-07-28] MEDS ORDERED: ACETAMINOPHEN325 M1 GT ×2 (13:47)
[2016-07-28] MEDS ORDERED: SYNTHROID25 MCG GT (13:47)
[2016-07-28] MEDS ORDERED: SINGULAIR10 MG GT (13:47)
[2016-07-28] MEDS ORDERED: BACTROBAN NASAL1 GM NASAL (13:47)
[2016-07-28] MEDS ORDERED: DOCUSATE SODIU100 MG ORAL (13:47)
[2016-07-28 13:56] LABS: APPEARANCE,URINE CLEAR; KETONES,URINE NEGATIVE (NEGATIVE); LEUKOCYTE ESTERASE ,URINE 1+ (NEGATIVE); NITRITE,URINE NEGATIVE (NEGATIVE); PH,URINE 5 (4.5-8.0); PROTEIN,URINE 2+ (NEGATIVE); UROBILINOGEN,URINE NORMAL MG/DL (0.0-1.0)
[2016-07-28 13:59] LABS: MEAN CORPUSCULAR HEMOGLOBIN 28.5 PG (27.0-31.0); MEAN CORPUSCULAR HGB CONC 30.9 G/DL (32.0-36.0); MEAN CORPUSCULAR VOLUME 92 FL (80-99); MEAN PLATELET VOLUME 6.6 FL (6.5-10.1); PLATELET COUNT 284 K/UL (150-450); RED BLOOD COUNT 3.58 M/UL (4.20-5.40); RED CELL DISTRIBUTION WIDTH 14.8 % (11.6-14.8); WHITE BLOOD COUNT 15.1 K/UL (4.8-10.8)
[2016-07-28 14:07] LABS: BACTERIA,URINE FEW /HPF; RBC,URINE 0-2 /HPF (0 - 2); SQUAMOUS EPITHELIAL CELL,UR FEW /LPF (NONE/OCC)
--- NOTE | 2016-07-28 14:09 | Emergency Room Report ---
History of Present Illness General Chief Complaint: Altered Level of Consciousness Source: Patient, Medical Record, EMS Present Illness HPI [id number] sent from SNF for concern for SOB, ?PNA. Recent discharge from outside hospital after tx for PNA. Patient not providing additional HPI at this time. No other family members bedside. None of paperwork from SNF indicates which ABx patient was on. EMR indicates: UTI, sepsis, gastrostomy tube, COPD, SOB, CKD, DM2, TIA, dementia , CHF, GERD Allergies: Coded Allergies: No Known Allergies (Unverified , 06/13/16) Patient History Past Medical History: other - see hpi Past Surgical History: unable to obtain Pertinent Family History: unable to obtain Social History: Denies: alcohol use, drug use, smoking Now: No Immunizations: UTD Reviewed Nursing Documentation: PMH: Agreed, PSxH: Agreed Nursing Documentation-PMH Hx Cardiac Problems: Yes - CKD, heart failure , mrsa nares Hx Hypertension: Yes - sepsis Hx COPD: Yes Hx Diabetes: Yes Hx Cancer: No Hx Neurological Problems: Yes Hx Transient Ischemic Attacks: Yes Hx Dementia: Yes Hx Dysphasia: Yes Review of Systems All Other Systems: limited - Limited to AMS, sepsis Physical Exam Vital Signs Date Time Temp Pulse Resp B/P Pulse Ox O2 Delivery O2 Flow Rate FiO2 07/28/16 13:23 99.1 105 24 105/46 97 Non-Rebreather 15.0 Sp02 EP Interpretation: reviewed, abnormal General Appearance: normal inspection, well appearing, no apparent distress, GCS 15, non-toxic Head: normocephalic, atraumatic Eyes: bilateral eye EOMI, bilateral eye PERRL ENT: normal ENT inspection, hearing grossly normal, normal voice Neck: normal inspection, full range of motion, supple, no meningismus, no bony tend Respiratory: normal inspection, lungs clear, normal breath sounds, no respiratory distress, no retraction, no wheezing, crackles Cardiovascular #1: regular rate, rhythm, no edema Gastrointestinal: normal inspection, normal bowel sounds, non tender, soft, no guarding, no hernia Genitourinary: no CVA tenderness Musculoskeletal: normal inspection, back normal, normal range of motion, Jessica' s Sign negative Neurologic: normal inspection, alert, responsive, speech normal, other - moving all extremities Medical Decision Making Medicare Attestation I Ede Levy MD hereby attest that the medical record entry for date of service, 12/5/16 accurately reflects signatures/notations that I made in my capacity as MD when I treated/diagnosed the above listed Medicare beneficiary. I attest that this information is true, accurate and complete to the best of my knowledge. I understand that any falsification, omission, or concealment of material fact may subject me to administrative, civil, or criminal liability. This patient warrants hospital admission for extreme of age and has a condition that cannot be treated as outpatient. Diagnostic Impression: Primary Impression: Altered level of consciousness Additional Impressions: Leukocytosis Qualified Codes: D72.825 - Bandemia CHF (congestive heart failure) Qualified Codes: I50.9 - Heart failure, unspecified ER Course 89YOF with AMS VS: O2 sat 100% on 2L NC Afebrile Normotensive Airway patent AMS - multifactorial - CXR shows right sided > left CHF vs PNA - Leuks 15k - Abx given for presumed PNA/sepsis however no SIRS - afebrile. Not tachy or hypotensive. Will empirically tx given reported recent outside hospital admission for sepsis. UA negative for UTI. - History of CHF, CXR looks more like CHF so patient started on BIPAP in ED. BNP ~6k. - Did not need intubation urgently in ED EKG Diagnostic Results Rate: tachycardiac Rhythm: NSR ST Segments: no acute changes ASA given to the pt in ED: No Rhythm Strip Diag. Results EP Interpretation: yes Rate: 95 Rhythm: NSR, no PVC's, no ectopy Chest X-Ray Diagnostic Results EP Interpretation: Yes Findings: other - R>L chf vs PNA. Right pleural effusion Number of Views: 1 Last Vital Signs Date Time Temp Pulse Resp B/P Pulse Ox O2 Delivery O2 Flow Rate FiO2 07/28/16 13:50 99.1 24 105/46 97 Non-Rebreather 15.0 07/28/16 13:23 105 Status: improved Disposition: ADMITTED INPATIENT Condition: Serious EDE LEVY M.D. July 28, 2016 14:09
[2016-07-28] MEDS ORDERED: Vancomycin 1 GM in NS 275 ML IVPB ONE (14:15)
[2016-07-28] MEDS ORDERED: Piperacillin/Tazobactam 3.375 GM in NS 110 ML IVPB ONE (14:15)
[2016-07-28 14:22] LABS: TROPONIN I < 0.30 ng/mL (<=0.30)
[2016-07-28 14:25] LABS: ALANINE AMINOTRANSFERASE 10 U/L (3-33); ANION GAP 9 (5-15); ASPARTATE AMINO TRANSFERASE 14 U/L (5-40); CALCIUM 9.1 mg/dL (8.6-10.2); CARBON DIOXIDE 32 mEQ/L (20-30); CHLORIDE 106 mEQ/L (98-107); CREATININE 0.7 mg/dL (0.5-0.9); HEMOLYSIS 0; POTASSIUM 4.3 mEQ/L (3.4-4.9); SODIUM 147 mEQ/L (135-145); TOTAL PROTEIN 6.4 g/dL (6.6-8.7)
[2016-07-28 14:32] LABS: ANISOCYTOSIS 1+; BAND NEUTROPHILS % (MANUAL) 1 % (0-8); BASOPHILS % (MANUAL) 0 % (0-2); EOSINOPHILS % (MANUAL) 0 % (0-3); HYPOCHROMASIA 1+; LYMPHOCYTES % (MANUAL) 6 % (20-45); NEUTROPHILS % (MANUAL) 88 % (45-75); PLATELET ESTIMATE ADEQUATE; PLATELET MORPHOLOGY NORMAL; TOTAL CELLS COUNTED 100
[2016-07-28 14:36] LABS: CKMB 2.1 ng/mL (< 3.8)
[2016-07-28] MEDS ORDERED: Zosyn 3.375gm inj ONE (14:46)
[2016-07-28] MEDS ORDERED: Vancomycin 1gm inj IVPB ONE (14:46)
[2016-07-28] MEDS ORDERED: DuoNeb 0.5-3(2.5)mg/3ml neb HHN PRN (15:30)
[2016-07-28] MEDS ORDERED: Miralax 17gm pkt ORAL PRN (15:30)
[2016-07-28] MEDS ORDERED: Mylanta II UD 30ml ORAL PRN (15:30)
[2016-07-28] MEDS ORDERED: Nitroglycerin Subl 0.4mg tab (Bottle Of 25) SL PRN (15:30)
[2016-07-28] MEDS ORDERED: Promethazine/Codeine 5ml UD ORAL PRN (15:30)
[2016-07-28] MEDS: Heparin 5000 units/ml inj SUBQ SCH (21:55)
[2016-07-28] MEDS: Cefepime HCl 1 GM in D5W 55 ML IV SCH (21:56)
[2016-07-29] VITALS: BP 98/59
--- NOTE | 2016-07-29 00:01 | History and Physical ---
History of Present Illness General Date patient seen: July 28, 2016 Reason for Hospitalization: Altered Level of Consciousness Present Illness HPI 89-year-old female with a history of dementia, hypertension, congestive heart failure, CVA, diabetes, dysphagia with G-tube placement, COPD, and pneumonia in the past, who was brought in by ambulance for shortness of breath and dyspnea. She is a poor historian with a history of dementia. She has not had any fevers. History was obtained from the chart and records. She was in respiratory failure in ER and was put on BIPAp and transferred to [facility]. Allergies: Coded Allergies: No Known Allergies (Unverified , 06/13/16) Medication History Scheduled Ascorbic Acid* (Vitamin C*), 500 MG GT DAILY, (Reported) Azithromycin (Azithromycin), 500 MG IVPB Q24H, (Reported) Docusate Sodium* (Docusate Sodium*), 100 MG ORAL TWICE A DAY, (Reported) Docusate Sodium* (Docusate Sodium*), 100 MG ORAL TWICE A DAY, (Reported) Famotidine (Pepcid), 20 MG ORAL DAILY, (Reported) Famotidine (Pepcid), 40 MG GT BID, (Reported) Ferrous Sulfate (Ferrous Sulfate), 7.5 ML ORAL DAILY, (Reported) Levothyroxine Sodium* (Synthroid*), 25 MCG ORAL DAILY, (Reported) Levothyroxine Sodium* (Synthroid*), 0.025 MG GT DAILY, (Reported) Montelukast Sodium* (Singulair*), 10 MG ORAL BEDTIME, (Reported) Montelukast Sodium* (Singulair*), 10 MG GT DAILY, (Reported) Multivitamin Liquid* (Multi-Delyn*), 5 ML GT DAILY, (Reported) Multivitamin Liquid* (Multi-Delyn*), 5 ML GT DAILY, (Reported) Mupirocin Nasal (Bactroban Nasal), 1 APPLIC NASAL TWICE A DAY, (Reported) Qrsvbhxhgifb-Yysn-Ruyegrsy,Iso (Zosyn 3.375 Gm Pre Mix-Bag), 3.375 GM IVPB EVERY 8 HOURS, (Reported) [Vitamin C], 5 ML GT DAILY, (Reported) Scheduled PRN Acetaminophen* (Acetaminophen 325MG Tablet*), 325 MG ORAL Q4H PRN for For Pain, (Reported) Acetaminophen* (Acetaminophen 325MG Tablet*), 325 MG GT Q4H PRN for Mild Pain ( Pain Scale 1-3), (Reported) Acetaminophen* (Acetaminophen 325MG Tablet*), 650 MG GT Q6HR PRN for Mild Pain/ Temp > 100.5, (Reported) Clonidine Hcl* (Catapres*), 0.1 MG ORAL PRN PRN for For High Blood Pressure, ( Reported) Ipratropium/Albuterol Sulfate (DuoNeb 0.5-3(2.5)mg/3ml), 3 ML HHN EVERY 4 HOURS PRN for Shortness of Breath, (Reported) Ipratropium/Albuterol Sulfate (DuoNeb 0.5-3(2.5)mg/3ml), 3 ML HHN EVERY 4 HOURS PRN for Shortness of Breath, (Reported) Patient History Healthcare decision maker Resuscitation status Full Code Advanced Directive on File No Past Medical/Surgical History Past Medical/Surgical History: (1) CHF (congestive heart failure) (2) Alzheimer's dementia (3) Cerebral vascular disease (4) COPD (chronic obstructive pulmonary disease) (5) Diabetes mellitus, type II Review of Systems Respiratory: Reports: orthopnea Physical Exam General Appearance: WD/WN, no apparent distress Lines, tubes and drains: peripheral, central line HEENT: normocephalic, atraumatic Neck: non-tender, normal alignment Respiratory/Chest: rhonchi - bilaterally Cardiovascular/Chest: normal peripheral pulses, normal rate Abdomen: normal bowel sounds, non tender, other Genitourinary/Rectal: normal genital exam, normal rectal exam Extremities: normal range of motion, non-tender Last 24 Hour Vital Signs Date Time Temp Pulse Resp B/P Pulse Ox O2 Delivery O2 Flow Rate FiO2 07/28/16 23:24 65 18 100 Facial 35 07/28/16 21:16 80 21 98 Facial 35 07/28/16 20:00 74 07/28/16 20:00 98.8 83 20 107/64 100 Bi-pap 07/28/16 20:00 15.0 35 07/28/16 19:25 75 20 98 Facial 35 07/28/16 19:08 98.3 74 25 94/40 100 15.0 35 07/28/16 18:55 74 25 94/40 100 15.0 35 07/28/16 18:14 79 25 100/47 100 15.0 35 07/28/16 17:00 89 25 102/62 100 15.0 35 07/28/16 16:37 90 25 100 Facial 35 07/28/16 16:10 98.3 93 28 93/53 100 Bi-pap 15.0 35 07/28/16 15:09 90 28 92/43 100 Bi-pap 15.0 35 07/28/16 14:35 94 28 Bi-pap 35 07/28/16 14:35 94 28 100 Facial 35 07/28/16 13:50 99.1 24 105/46 97 Non-Rebreather 15.0 07/28/16 13:23 99.1 105 24 105/46 97 Non-Rebreather 15.0 Intake and Output 07/28/16 07/29/16 19:00 07:00 Intake Total 775 ml Output Total 300 ml Balance 475 ml Intake Oral 0 ml IV Total 775 ml Output Urine Total 300 ml # Bowel Movements 1 Laboratory Tests Test 07/28/16 13:30 07/28/16 13:40 White Blood Count 15.1 K/UL (4.8-10.8) H Red Blood Count 3.58 M/UL (4.20-5.40) L Hemoglobin 10.2 G/DL (12.0-16.0) L Hematocrit 33.1 % (37.0-47.0) L Mean Corpuscular Volume 92 FL (80-99) Mean Corpuscular Hemoglobin 28.5 PG (27.0-31.0) Mean Corpuscular Hemoglobin Concent 30.9 G/DL (32.0-36.0) L Red Cell Distribution Width 14.8 % (11.6-14.8) Platelet Count 284 K/UL (150-450) Mean Platelet Volume 6.6 FL (6.5-10.1) Neutrophils (%) (Auto) % (45.0-75.0) Lymphocytes (%) (Auto) % (20.0-45.0) Monocytes (%) (Auto) % (1.0-10.0) Eosinophils (%) (Auto) % (0.0-3.0) Basophils (%) (Auto) % (0.0-2.0) Differential Total Cells Counted 100 Neutrophils % (Manual) 88 % (45-75) H Lymphocytes % (Manual) 6 % (20-45) L Monocytes % (Manual) 5 % (1-10) Eosinophils % (Manual) 0 % (0-3) Basophils % (Manual) 0 % (0-2) Band Neutrophils 1 % (0-8) Platelet Estimate Adequate Platelet Morphology Normal Hypochromasia 1+ Anisocytosis 1+ Sodium Level 147 mEQ/L (135-145) H Potassium Level 4.3 mEQ/L (3.4-4.9) Chloride Level 106 mEQ/L (98-107) Carbon Dioxide Level 32 mEQ/L (20-30) H Anion Gap 9 (5-15) Blood Urea Nitrogen 18 mg/dL (7-23) Creatinine 0.7 mg/dL (0.5-0.9) Estimat Glomerular Filtration Rate mL/min (>60) Glucose Level 120 mg/dL (74-106) H Lactic Acid Level 0.60 mmol/L (0.66-2.22) L Calcium Level 9.1 mg/dL (8.6-10.2) Total Bilirubin < 0.2 mg/dL (0.0-1.2) Aspartate Amino Transf (AST/SGOT) 14 U/L (5-40) Alanine Aminotransferase (ALT/SGPT) 10 U/L (3-33) Alkaline Phosphatase 61 U/L (35-104) Total Creatine Kinase 40 U/L (26-140) Creatine Kinase MB 2.1 ng/mL (< 3.8) Creatine Kinase MB Relative Index 5.2 Troponin I < 0.30 ng/mL (<=0.30) Pro-B-Type Natriuretic Peptide 5885 pg/mL (0-450) H Total Protein 6.4 g/dL (6.6-8.7) L Albumin 3.2 g/dL (3.5-5.2) L Globulin 3.2 g/dL Albumin/Globulin Ratio 1.0 (1.0-2.7) Urine Color Pale yellow Urine Appearance Clear Urine pH 5 (4.5-8.0) Urine Specific [place] 1.015 (1.005-1.035) Urine Protein 2+ (NEGATIVE) H Urine Glucose (UA) Negative (NEGATIVE) Urine Ketones Negative (NEGATIVE) Urine Occult Blood Negative (NEGATIVE) Urine Nitrite Negative (NEGATIVE) Urine Bilirubin Negative (NEGATIVE) Urine Urobilinogen Normal MG/DL (0.0-1.0) Urine Leukocyte Esterase 1+ (NEGATIVE) H Urine RBC 0-2 /HPF (0 - 2) Urine WBC 2-4 /HPF (0 - 2) Urine Squamous Epithelial Cells Few /LPF (NONE/OCC) Urine Bacteria Few /HPF (NONE) Height (Feet): 5 Height (Inches): 6.00 Weight (Pounds): 150 Medications Current Medications Medications (Trade) Dose Ordered Sig/Mallory Route PRN Reason Start Time Stop Time Status Last Admin Dose Admin Acetaminophen (Tylenol) 650 mg Q4H PRN ORAL T>100.5 07/28/16 15:30 08/27/16 15:29 Al Hydroxide/Mg Hydroxide (Mylanta II) 30 ml Q6H PRN ORAL dyspepsia 07/28/16 15:30 08/27/16 15:29 Albuterol/ Ipratropium 3 ml 3 ml Q4H PRN HHN Shortness of Breath 07/28/16 15:30 08/02/16 15:29 Cefepime HCl/ Dextrose (Maxipime/D5W) 55 ml @ 110 mls/hr Q24H IV 07/28/16 20:00 08/04/16 19:59 07/28/16 21:56 Clonidine HCl (Catapres) 0.1 mg Q6H PRN ORAL SBP>160 07/28/16 15:30 08/27/16 15:29 Heparin Sodium (Porcine) (Heparin 5000 units/ml) 5,000 units EVERY 12 HOURS SUBQ 07/28/16 21:00 08/27/16 20:59 07/28/16 21:55 Levothyroxine Sodium (Synthroid) 25 mcg DAILY GT 07/29/16 09:00 08/28/16 08:59 Nitroglycerin (Ntg) 0.4 mg Q5M PRN SL Prn Chest Pain 07/28/16 15:30 08/27/16 15:29 Ondansetron HCl (Zofran) 4 mg Q6H PRN IVP Nausea & Vomiting 07/28/16 15:30 08/27/16 15:29 Polyethylene Glycol (Miralax) 17 gm DAILYPRN PRN ORAL Constipation 07/28/16 15:30 08/27/16 15:29 Promethazine HCl/ Codeine (Phenergan with Codeine) 5 ml Q4H PRN ORAL For Cough 07/28/16 15:30 08/27/16 15:29 Temazepam (Restoril) 15 mg HSPRN PRN ORAL Insomnia 07/28/16 21:00 08/04/16 20:59 Assessment/Plan Problem List: (1) Respiratory failure ICD Codes: J96.90 - Respiratory failure, unspecified, unspecified whether with hypoxia or hypercapnia SNOMED: 204713011 (2) UTI (urinary tract infection) ICD Codes: N39.0 - Urinary tract infection, site not specified SNOMED: 09776975 (3) CHF (congestive heart failure) ICD Codes: I50.9 - Heart failure, unspecified SNOMED: 65126646 Qualifiers: Qualified Codes: I50.9 - Heart failure, unspecified (4) COPD (chronic obstructive pulmonary disease) ICD Codes: J44.9 - Chronic obstructive pulmonary disease, unspecified SNOMED: 58461539 (5) Diabetes mellitus, type II ICD Codes: E11.9 - Type 2 diabetes mellitus without complications SNOMED: 00404930 (6) Cerebral vascular disease ICD Codes: I67.9 - Cerebrovascular disease, unspecified SNOMED: 95264282 (7) Alzheimer's dementia ICD Codes: G30.9 - Alzheimer's disease, unspecified SNOMED: 98843633 (8) Feeding by G-tube ICD Codes: Z93.1 - Gastrostomy status SNOMED: 249563925, 055813460 (9) Hypertension ICD Codes: I10 - Essential (primary) hypertension SNOMED: 04915935 Assessment/Plan respiratory treatment echevarria culture BIPAP prn cxr in 1-2 days feeding by Gtube diuretics check cultures dvt prophylaxis MICHELLE ROSE July 29, 2016 00:01
[2016-07-29] MEDS ORDERED: Miralax 17gm pkt GT PRN (01:15)
[2016-07-29] MEDS ORDERED: Mylanta II UD 30ml GT PRN (03:30)
[2016-07-29] MEDS ORDERED: Promethazine/Codeine 5ml UD GT PRN (03:30)
[2016-07-29 04:00] VITALS: BP 131/59
[2016-07-29 05:26] LABS: BASOPHILS % (AUTO) 0.5 % (0.0-2.0); EOSINOPHILS % (AUTO) 1.7 % (0.0-3.0); LYMPHOCYTES % (AUTO) 14.3 % (20.0-45.0); MEAN CORPUSCULAR HEMOGLOBIN 28.3 PG (27.0-31.0); MEAN CORPUSCULAR HGB CONC 30.7 G/DL (32.0-36.0); MEAN CORPUSCULAR VOLUME 92 FL (80-99); MEAN PLATELET VOLUME 7.3 FL (6.5-10.1); MONOCYTES % (AUTO) 4.1 % (1.0-10.0); NEUTROPHILS % (AUTO) 79.4 % (45.0-75.0); PLATELET COUNT 252 K/UL (150-450); RED BLOOD COUNT 3.33 M/UL (4.20-5.40); RED CELL DISTRIBUTION WIDTH 14.7 % (11.6-14.8); WHITE BLOOD COUNT 9.4 K/UL (4.8-10.8)
[2016-07-29 05:46] LABS: ANION GAP 9 (5-15); CALCIUM 8.8 mg/dL (8.6-10.2); CARBON DIOXIDE 32 mEQ/L (20-30); CHLORIDE 109 mEQ/L (98-107); CREATININE 0.7 mg/dL (0.5-0.9); HEMOLYSIS 0; PHOSPHORUS 2.8 mg/dL (2.5-4.8); POTASSIUM 3.8 mEQ/L (3.4-4.9); SODIUM 150 mEQ/L (135-145)
[2016-07-29 07:43] VITALS: BP 136/79
[2016-07-29] MEDS: Levothyroxine 25mcg tab GT SCH (08:39)
[2016-07-29] MEDS: Heparin 5000 units/ml inj SUBQ SCH ×2 (08:42→20:16)
[2016-07-29] MEDS ORDERED: Sodium Bicarbonate 4% 2.4meq/5ml vial INJ ONE (10:45)
[2016-07-29] MEDS ORDERED: Heparin 2000 units/Ns 1000ml INJ ONE (10:45)
[2016-07-29] MEDS ORDERED: Lidocaine 1% Plain 30 ml INJ ONE (10:45)
--- NOTE | 2016-07-29 10:48 | General Progress Note ---
Progress Note Progress Note Pt needs a PICC line, she doens't have any family member and herself is demented and unable to provide with hx. MICHELLE ROSE July 29, 2016 10:48
--- NOTE | 2016-07-29 10:55 | Pulmonology Progress Note ---
Assessment/Plan Problems: (1) Respiratory failure (2) UTI (urinary tract infection) (3) CHF (congestive heart failure) (4) COPD (chronic obstructive pulmonary disease) (5) Diabetes mellitus, type II (6) Cerebral vascular disease (7) Alzheimer's dementia (8) Feeding by G-tube (9) Hypertension Assessment/Plan imrpovng echo pending on lasix no cultures yet cxr bnp in am taper off bipap Subjective ROS Limited/Unobtainable: No Constitutional: Reports: no symptoms HEENT: Repors: no symptoms Respiratory: Reports: no symptoms Cardiovascular: Reports: no symptoms Allergies: Coded Allergies: No Known Allergies (Unverified , 06/13/16) Objective Last 24 Hour Vital Signs Date Time Temp Pulse Resp B/P Pulse Ox O2 Delivery O2 Flow Rate FiO2 07/29/16 09:31 Venturi Mask 6.0 35 07/29/16 09:30 98 Venturi Mask 6.0 35 07/29/16 09:29 98 07/29/16 08:08 73 07/29/16 08:00 14.0 35 07/29/16 07:43 97.7 78 22 136/79 99 Bi-pap 07/29/16 07:20 98 23 99 Facial 35 07/29/16 05:15 70 24 98 Facial 35 07/29/16 04:00 15.0 35 07/29/16 04:00 97.6 75 22 131/59 99 Bi-pap 07/29/16 04:00 75 07/29/16 03:20 66 21 98 Facial 35 07/29/16 01:20 68 19 98 Facial 35 07/29/16 00:00 97.9 66 22 98/59 99 Bi-pap 07/29/16 00:00 15.0 35 07/29/16 00:00 67 07/28/16 23:24 65 18 100 Facial 35 07/28/16 21:16 80 21 98 Facial 35 07/28/16 20:00 74 07/28/16 20:00 98.8 83 20 107/64 100 Bi-pap 07/28/16 20:00 15.0 35 07/28/16 19:25 75 20 98 Facial 35 07/28/16 19:08 98.3 74 25 94/40 100 15.0 35 07/28/16 18:55 74 25 94/40 100 15.0 35 07/28/16 18:14 79 25 100/47 100 15.0 35 07/28/16 17:00 89 25 102/62 100 15.0 35 07/28/16 16:37 90 25 100 Facial 35 07/28/16 16:10 98.3 93 28 93/53 100 Bi-pap 15.0 35 07/28/16 15:09 90 28 92/43 100 Bi-pap 15.0 35 07/28/16 14:35 94 28 Bi-pap 35 07/28/16 14:35 94 28 100 Facial 35 07/28/16 13:50 99.1 24 105/46 97 Non-Rebreather 15.0 07/28/16 13:23 99.1 105 24 105/46 97 Non-Rebreather 15.0 Intake and Output 07/28/16 07/29/16 19:00 07:00 Intake Total 775 ml 470 ml Output Total 300 ml 450 ml Balance 475 ml 20 ml Intake Oral 0 ml Free Water 100 ml IV Total 775 ml 110 ml Tube Feeding 260 ml Output Urine Total 300 ml 450 ml # Bowel Movements 1 General Appearance: WD/WN HEENT: normocephalic, atraumatic Respiratory/Chest: chest wall non-tender, decreased breath sounds, crackles/ rales Cardiovascular: normal peripheral pulses, normal rate Abdomen: normal bowel sounds, soft, non tender Extremities: no cyanosis, no clubbing Skin: no lesions Laboratory Tests 07/28/16 13:30: White Blood Count 15.1H, Red Blood Count 3.58L, Hemoglobin 10.2L, Hematocrit 33.1L, Mean Corpuscular Volume 92, Mean Corpuscular Hemoglobin 28.5, Mean Corpuscular Hemoglobin Concent 30.9L, Red Cell Distribution Width 14.8, Platelet Count 284, Mean Platelet Volume 6.6, Neutrophils (%) (Auto) , Lymphocytes (%) (Auto) , Monocytes (%) (Auto) , Eosinophils (%) (Auto) , Basophils (%) (Auto) , Differential Total Cells Counted 100, Neutrophils % ( Manual) 88H, Lymphocytes % (Manual) 6L, Monocytes % (Manual) 5, Eosinophils % ( Manual) 0, Basophils % (Manual) 0, Band Neutrophils 1, Platelet Estimate Adequate, Platelet Morphology Normal, Hypochromasia 1+, Anisocytosis 1+, Sodium Level 147H, Potassium Level 4.3, Chloride Level 106, Carbon Dioxide Level 32H, Anion Gap 9, Blood Urea Nitrogen 18, Creatinine 0.7, Estimat Glomerular Filtration Rate , Glucose Level 120H, Lactic Acid Level 0.60L, Calcium Level 9.1 , Total Bilirubin < 0.2, Aspartate Amino Transf (AST/SGOT) 14, Alanine Aminotransferase (ALT/SGPT) 10, Alkaline Phosphatase 61, Total Creatine Kinase 40, Creatine Kinase MB 2.1, Creatine Kinase MB Relative Index 5.2, Troponin I < 0.30, Pro-B-Type Natriuretic Peptide 5885H, Total Protein 6.4L, Albumin 3.2L, Globulin 3.2, Albumin/Globulin Ratio 1.0 07/28/16 13:40: Urine Color Pale yellow, Urine Appearance Clear, Urine pH 5, Urine Specific [place] 1.015, Urine Protein 2+H, Urine Glucose (UA) Negative, Urine Ketones Negative, Urine Occult Blood Negative, Urine Nitrite Negative, Urine Bilirubin Negative, Urine Urobilinogen Normal, Urine Leukocyte Esterase 1+H, Urine RBC 0-2 , Urine WBC 2-4, Urine Squamous Epithelial Cells Few, Urine Bacteria Few 07/29/16 03:30: White Blood Count 9.4, Red Blood Count 3.33L, Hemoglobin 9.4L, Hematocrit 30.7L , Mean Corpuscular Volume 92, Mean Corpuscular Hemoglobin 28.3, Mean Corpuscular Hemoglobin Concent 30.7L, Red Cell Distribution Width 14.7, Platelet Count 252, Mean Platelet Volume 7.3, Neutrophils (%) (Auto) 79.4H, Lymphocytes (%) (Auto) 14.3L, Monocytes (%) (Auto) 4.1, Eosinophils (%) (Auto) 1.7, Basophils (%) (Auto) 0.5, Sodium Level 150H, Potassium Level 3.8, Chloride Level 109H, Carbon Dioxide Level 32H, Anion Gap 9, Blood Urea Nitrogen 19, Creatinine 0.7, Estimat Glomerular Filtration Rate , Glucose Level 97, Calcium Level 8.8, Albumin 2.7L, Phosphorus Level 2.8 Current Medications Medications (Trade) Dose Ordered Sig/Mallory Route PRN Reason Start Time Stop Time Status Last Admin Dose Admin Acetaminophen (Tylenol) 650 mg Q4H PRN ORAL T>100.5 07/28/16 15:30 08/27/16 15:29 Al Hydroxide/Mg Hydroxide (Mylanta II) 30 ml Q6H PRN GT dyspepsia 07/29/16 03:30 08/28/16 03:29 Albuterol/ Ipratropium 3 ml 3 ml Q4H PRN HHN Shortness of Breath 07/28/16 15:30 08/02/16 15:29 Cefepime HCl/ Dextrose (Maxipime/D5W) 55 ml @ 110 mls/hr Q24H IV 07/28/16 20:00 08/04/16 19:59 07/28/16 21:56 Chlorhexidine Gluconate (Caitlyn-Hex 2%) 1 applic DAILY TOPIC 07/30/16 09:00 08/29/16 08:59 Chlorhexidine Gluconate 1 applic 1 applic Q24H TOPIC 07/30/16 01:00 08/29/16 00:59 Clonidine HCl (Catapres) 0.1 mg Q6H PRN GT SBP>160 07/29/16 03:30 08/28/16 03:29 Furosemide/ Dextrose (Lasix/D5W) 110 ml @ 11 mls/hr Q10H IV 07/29/16 12:30 08/28/16 12:29 Heparin Sodium (Porcine) (Heparin 5000 units/ml) 5,000 units EVERY 12 HOURS SUBQ 07/28/16 21:00 08/27/16 20:59 07/29/16 08:42 Levothyroxine Sodium (Synthroid) 25 mcg DAILY GT 07/29/16 09:00 08/28/16 08:59 07/29/16 08:39 Nitroglycerin (Ntg) 0.4 mg Q5M PRN SL Prn Chest Pain 07/28/16 15:30 08/27/16 15:29 Ondansetron HCl (Zofran) 4 mg Q6H PRN IVP Nausea & Vomiting 07/28/16 15:30 08/27/16 15:29 Polyethylene Glycol (Miralax) 17 gm DAILYPRN PRN GT Constipation 07/29/16 01:15 08/28/16 01:14 Promethazine HCl/ Codeine (Phenergan with Codeine) 5 ml Q4H PRN GT For Cough 5/25/17 03:30 08/28/16 03:29 Temazepam (Restoril) 15 mg HSPRN PRN GT Insomnia 07/29/16 01:15 08/05/16 01:14 MICHELLE ROSE July 29, 2016 10:55
--- NOTE | 2016-07-29 10:59 | Consultation ---
Consult Note Assessment/Plan ID Dic # [id number] A: The patient is an 89-year-old female UTI UCX P Mirabilis Dementia HTN CHF CVA Diabetes Dysphagia, status post PEG placement CHF PLAN: cont patient on IV Rocephin d # 3 / , upon DC will change to Kelfex 500 qid to complete the course Monitor CB Monitor BMP. Monitor cultures (blood ) Monitors chest x-ray KIMO CEDEÑO M.D. July 29, 2016 10:59
[2016-07-29 11:44] VITALS: BP 123/51
[2016-07-29] MEDS ORDERED: Sodium Bicarbonate 4% 2.4meq/5ml vial INJ PRN (15:15)
[2016-07-29] MEDS ORDERED: Lidocaine 1% Plain 30 ml INJ PRN (15:15)
[2016-07-29] MEDS ORDERED: Heparin 2000 units/Ns 1000ml INJ PRN (15:15)
[2016-07-29 16:00] VITALS: BP 127/42
--- NOTE | 2016-07-29 16:36 | Diagnostic Imaging Report ---
Indication: Chest Pain Comparison: 06/13/16 A single view chest radiograph was obtained. Findings: There is interstitial edema with cardiomegaly. Bilateral pleural effusions are suspected. There is a right sided spleen is intravenous catheter which appears to be in good position. Impression: CHF and bilateral pleural effusions
--- NOTE | 2016-07-29 16:46 | Consultation ---
DATE OF CONSULTATION: INFECTIOUS DISEASE CONSULTATION CONSULTING PHYSICIAN: Yannick Contreras M.D. REFERRING PHYSICIAN: Yeimi Razo M.D. REASON FOR CONSULTATION: Evaluation and management of the patient for sepsis, antibiotic management. HISTORY OF PRESENT ILLNESS: The patient is an 89-year-old female with multiple medical problems who is known to our service from recent admission. The patient was brought to this hospital due to altered level of consciousness that has improved. On previous admission, the patient was diagnosed with Proteus mirabilis UTI. PAST MEDICAL HISTORY: 1. History of urinary tract infection due to Proteus mirabilis. 2. History of dementia. 3. Hypertension. 4. CHF. 5. CVA. 6. Diabetes. 7. Dysphagia. MEDICATIONS: Cefepime. FAMILY HISTORY: Noncontributory. REVIEW OF SYSTEMS: Unobtainable. PHYSICAL EXAMINATION: VITAL SIGNS: Temperature 97 degrees, blood pressure 136/79, pulse 86, and respiratory rate 18. HEENT: Mild pale conjunctivae. No icterus. NECK: No lymphadenopathy. CHEST: Coarse breathing sound. HEART: S1 and S2. ABDOMEN: Soft. EXTREMITIES: No cyanosis. . NEUROLOGIC: Awake. LABORATORY AND DIAGNOSTIC DATA: White blood cell 9.4, hemoglobin 9.4, and platelets 252,000. Urinalysis unremarkable. BUN 19 and creatinine 0.7. AST, ALT and alkaline phosphatase unremarkable. ASSESSMENT: The patient is an 89-year-old female with multiple medical problem, who has been admitted to this medical center. The patient on admission was found to have mild leukocytosis. The patient's mental status overall has been improved. The patient being afebrile and there is no obvious source of infection at this point. Chest x-ray shows mostly congestive heart failure and bilateral pleural effusion. PLAN: 1. We will continue the patient on IV cefepime. 2. Monitor CBC. 3. Monitor BMP. 4. Monitor cultures (sputum and blood). 5. If the patient is stable, afebrile without leukocytosis, we may discontinue antibiotics soon. Thank you, Dr. Razo, for this consultation. I will follow the patient with you during this hospitalization. Yannick Contrreas M.D. DR: [place] JOB#: [id number] CC:
[2016-07-29 20:00] VITALS: BP 141/69
[2016-07-29] MEDS: Cefepime HCl 1 GM in D5W 55 ML IV SCH (20:12)
[2016-07-30 00:49] VITALS: BP 108/66
[2016-07-30] MEDS: Dyna-Hex 2% Top Sol 8oz TOPIC SCH (01:13)
[2016-07-30 04:00] VITALS: BP 129/60
[2016-07-30 05:14] LABS: BASOPHILS % (AUTO) 0.4 % (0.0-2.0); EOSINOPHILS % (AUTO) 2.5 % (0.0-3.0); MEAN CORPUSCULAR HEMOGLOBIN 29.4 PG (27.0-31.0); MEAN CORPUSCULAR HGB CONC 32.1 G/DL (32.0-36.0); MEAN CORPUSCULAR VOLUME 92 FL (80-99); MEAN PLATELET VOLUME 7.5 FL (6.5-10.1); MONOCYTES % (AUTO) 3.7 % (1.0-10.0); NEUTROPHILS % (AUTO) 81.5 % (45.0-75.0); PLATELET COUNT 252 K/UL (150-450); RED BLOOD COUNT 3.45 M/UL (4.20-5.40); RED CELL DISTRIBUTION WIDTH 14.2 % (11.6-14.8); WHITE BLOOD COUNT 11.1 K/UL (4.8-10.8)
[2016-07-30 05:46] LABS: ALANINE AMINOTRANSFERASE 10 U/L (3-33); ALBUMIN/GLOBULIN RATIO 0.8 (1.0-2.7); ANION GAP 5 (5-15); ASPARTATE AMINO TRANSFERASE 13 U/L (5-40); CALCIUM 9.4 mg/dL (8.6-10.2); CHLORIDE 100 mEQ/L (98-107); CREATININE 0.8 mg/dL (0.5-0.9); HEMOLYSIS 0; POTASSIUM 3.6 mEQ/L (3.4-4.9); SODIUM 148 mEQ/L (135-145); TOTAL PROTEIN 6.3 g/dL (6.6-8.7)
[2016-07-30 05:53] LABS: CARBON DIOXIDE 43 mEQ/L (20-30)
[2016-07-30 08:00] VITALS: BP 114/66
[2016-07-30] MEDS: Levothyroxine 25mcg tab GT SCH (08:31)
[2016-07-30] MEDS: Heparin 5000 units/ml inj SUBQ SCH ×2 (08:32→22:06)
[2016-07-30] MEDS ORDERED: Dyna-Hex 2% Top Sol 8oz TOPIC SCH (09:00)
[2016-07-30] MEDS: LORazepam Inj 2mg/ml 1ml IV PRN ×3 (10:21→23:21)
--- NOTE | 2016-07-30 10:28 | Pulmonology Progress Note ---
Assessment/Plan Problems: (1) Respiratory failure (2) UTI (urinary tract infection) (3) CHF (congestive heart failure) (4) COPD (chronic obstructive pulmonary disease) (5) Diabetes mellitus, type II (6) Cerebral vascular disease (7) Alzheimer's dementia (8) Feeding by G-tube (9) Hypertension Assessment/Plan imrpovng echo showed EF of 55% on lasix no cultures yet cxr bnp in am tolerating face mask add Diamox b/o rising CO2 cxr bnp, anemia w/u in am Subjective ROS Limited/Unobtainable: No Constitutional: Reports: no symptoms HEENT: Repors: no symptoms Respiratory: Reports: no symptoms Allergies: Coded Allergies: No Known Allergies (Unverified , 06/13/16) Objective Last 24 Hour Vital Signs Date Time Temp Pulse Resp B/P Pulse Ox O2 Delivery O2 Flow Rate FiO2 07/30/16 08:00 97.9 85 16 114/66 96 Venturi Mask 35 07/30/16 07:52 76 07/30/16 07:30 Venturi Mask 6.0 35 07/30/16 07:30 96 07/30/16 07:30 96 Venturi Mask 6.0 35 07/30/16 05:30 96 07/30/16 04:00 79 07/30/16 04:00 97.8 80 24 129/60 97 Venturi Mask 07/30/16 03:02 97 07/30/16 01:01 97 07/30/16 00:49 98.6 85 24 108/66 94 Venturi Mask 07/30/16 00:00 83 07/29/16 22:54 95 07/29/16 21:30 96 07/29/16 20:00 83 07/29/16 20:00 98.9 85 24 141/69 93 Venturi Mask 07/29/16 19:33 Venturi Mask 6.0 35 07/29/16 19:33 97 Venturi Mask 6.0 35 07/29/16 19:33 95 07/29/16 16:45 96 07/29/16 16:00 98.6 78 18 127/42 100 Mechanical Ventilator 07/29/16 15:42 84 07/29/16 14:49 95 07/29/16 13:05 97 07/29/16 12:00 35 07/29/16 11:59 76 07/29/16 11:44 97.5 79 22 123/51 97 Venturi Mask 35 07/29/16 10:54 98 Intake and Output 07/29/16 07/30/16 18:59 06:59 Intake Total 772 ml 146.66 ml Balance 772 ml 146.66 ml Free Water 125 ml IV Total 77 ml 146.66 ml Tube Feeding 510 ml Other 60 ml # Voids 2 4 # Bowel Movements 2 General Appearance: WD/WN HEENT: normocephalic, atraumatic Respiratory/Chest: chest wall non-tender, lungs clear Cardiovascular: normal peripheral pulses, normal rate Abdomen: normal bowel sounds, soft, non tender Extremities: no cyanosis Skin: no rash 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 Lymphatic: no neck adenopathy Microbiology Date/Time Source Procedure Growth Status 07/28/16 13:30 Blood Blood Culture - Preliminary NO GROWTH AFTER 24 HOURS Resulted 07/28/16 13:15 Blood Blood Culture - Preliminary NO GROWTH AFTER 24 HOURS Resulted 07/28/16 13:40 Nasal Nares MRSA Culture - Final Staphylococcus Aureus - Mrsa Complete Laboratory Tests 07/30/16 03:54: White Blood Count 11.1H, Red Blood Count 3.45L, Hemoglobin 10.1L, Hematocrit 31.6L, Mean Corpuscular Volume 92, Mean Corpuscular Hemoglobin 29.4, Mean Corpuscular Hemoglobin Concent 32.1, Red Cell Distribution Width 14.2, Platelet Count 252, Mean Platelet Volume 7.5, Neutrophils (%) (Auto) 81.5H, Lymphocytes ( %) (Auto) 12.0L, Monocytes (%) (Auto) 3.7, Eosinophils (%) (Auto) 2.5, Basophils (%) (Auto) 0.4, Sodium Level 148H, Potassium Level 3.6, Chloride Level 100, Carbon Dioxide Level 43*H, Anion Gap 5, Blood Urea Nitrogen 21, Creatinine 0.8, Estimat Glomerular Filtration Rate , Glucose Level 114H, Calcium Level 9.4, Total Bilirubin < 0.2, Aspartate Amino Transf (AST/SGOT) 13, Alanine Aminotransferase (ALT/SGPT) 10, Alkaline Phosphatase 60, Pro-B-Type Natriuretic Peptide 4992H, Total Protein 6.3L, Albumin 2.9L, Globulin 3.4, Albumin/Globulin Ratio 0.8L Current Medications Medications (Trade) Dose Ordered Sig/Mallory Route PRN Reason Start Time Stop Time Status Last Admin Dose Admin Acetaminophen (Tylenol) 650 mg Q4H PRN ORAL T>100.5 07/28/16 15:30 08/27/16 15:29 Al Hydroxide/Mg Hydroxide (Mylanta II) 30 ml Q6H PRN GT dyspepsia 07/29/16 03:30 08/28/16 03:29 Albuterol/ Ipratropium 3 ml 3 ml Q4H PRN HHN Shortness of Breath 07/28/16 15:30 08/02/16 15:29 Cefepime HCl/ Dextrose (Maxipime/D5W) 55 ml @ 110 mls/hr Q24H IV 07/28/16 20:00 08/04/16 19:59 07/29/16 20:12 Chlorhexidine Gluconate 1 applic 1 applic Q24H TOPIC 07/30/16 01:00 08/29/16 00:59 07/30/16 01:13 Clonidine HCl (Catapres) 0.1 mg Q6H PRN GT SBP>160 07/29/16 03:30 08/28/16 03:29 Furosemide/ Dextrose (Lasix/D5W) 110 ml @ 11 mls/hr Q10H IV 07/29/16 12:30 08/28/16 12:29 07/30/16 08:38 Heparin Sodium (Porcine) (Heparin 5000 units/ml) 5,000 units EVERY 12 HOURS SUBQ 07/28/16 21:00 08/27/16 20:59 07/30/16 08:32 Heparin Sodium/ Sodium Chloride (Heparin 2000 units/Ns 1000ml premix) 2,000 unit ONCE PRN INJ PICC PLACEMENT 07/29/16 15:15 07/30/16 23:59 Levothyroxine Sodium (Synthroid) 25 mcg DAILY GT 07/29/16 09:00 08/28/16 08:59 07/30/16 08:31 Lidocaine HCl (Xylocaine 1% 30ml) 30 ml ONCE PRN INJ PICC PLACEMENT 07/29/16 15:15 07/30/16 23:59 Lorazepam (Ativan 2mg/ml 1ml) 1 mg Q4H PRN IV For Anxiety 07/30/16 10:15 08/06/16 10:14 07/30/16 10:21 Nitroglycerin (Ntg) 0.4 mg Q5M PRN SL Prn Chest Pain 07/28/16 15:30 08/27/16 15:29 Ondansetron HCl (Zofran) 4 mg Q6H PRN IVP Nausea & Vomiting 07/28/16 15:30 08/27/16 15:29 Polyethylene Glycol (Miralax) 17 gm DAILYPRN PRN GT Constipation 07/29/16 01:15 08/28/16 01:14 Promethazine HCl/ Codeine (Phenergan with Codeine) 5 ml Q4H PRN GT For Cough 07/29/16 03:30 08/28/16 03:29 Sodium Bicarbonate (Sodium Bicarbonate 4%) 1 ml ONCE PRN INJ PICC PLACEMENT 07/29/16 15:15 07/30/16 23:59 Temazepam (Restoril) 15 mg HSPRN PRN GT Insomnia 07/29/16 01:15 08/05/16 01:14 MICHELLE ROSE July 30, 2016 10:28
--- NOTE | 2016-07-30 11:08 | Diagnostic Imaging Report ---
Indication: DYSPNEA Technique: One view of the chest Comparison: 07/28/2016 Findings: Right subclavian central venous catheter is again demonstrated. Pleural fluid on the left is decreased, although there is some residual pleural thickening or fluid. There is decreased interstitial edema bilaterally. The heart is enlarged. Impression: Decreased congestion and decreased but persistent left pleural fluid, over 2 days Other findings as noted
--- NOTE | 2016-07-30 11:43 | Infectious Diseases Prog Note ---
Assessment/Plan Assessment/Plan A: The patient is an 89-year-old female UTI UCX P Mirabilis leukocytosis mild Dementia HTN CHF CVA Diabetes Dysphagia, status post PEG placement CHF PLAN: cont patient on IV Cefepime d # 3 / 7 , upon DC will change to Kelfex 500 qid to complete the course Monitor CB Monitor BMP. Monitor cultures (blood , SP ) Monitors chest x-ray Subjective Constitutional: Denies: anorexia, chills, drenching sweats, fatigue, fever, no symptoms, other Allergies: Coded Allergies: No Known Allergies (Unverified , 06/13/16) Objective Vital Signs Last 24 Hour Vital Signs Date Time Temp Pulse Resp B/P Pulse Ox O2 Delivery O2 Flow Rate FiO2 07/30/16 08:00 97.9 85 16 114/66 96 Venturi Mask 35 07/30/16 07:52 76 07/30/16 07:30 Venturi Mask 6.0 35 07/30/16 07:30 96 07/30/16 07:30 96 Venturi Mask 6.0 35 07/30/16 05:30 96 07/30/16 04:00 79 07/30/16 04:00 97.8 80 24 129/60 97 Venturi Mask 07/30/16 03:02 97 07/30/16 01:01 97 07/30/16 00:49 98.6 85 24 108/66 94 Venturi Mask 07/30/16 00:00 83 07/29/16 22:54 95 07/29/16 21:30 96 07/29/16 20:00 83 07/29/16 20:00 98.9 85 24 141/69 93 Venturi Mask 07/29/16 19:33 Venturi Mask 6.0 35 07/29/16 19:33 97 Venturi Mask 6.0 35 07/29/16 19:33 95 07/29/16 16:45 96 07/29/16 16:00 98.6 78 18 127/42 100 Mechanical Ventilator 07/29/16 15:42 84 07/29/16 14:49 95 07/29/16 13:05 97 07/29/16 12:00 35 07/29/16 11:59 76 07/29/16 11:44 97.5 79 22 123/51 97 Venturi Mask 35 Height (Feet): 5 Height (Inches): 6.00 Weight (Pounds): 142 HEENT: anicteric Respiratory/Chest: no respiratory distress Cardiovascular: regular rhythm Abdomen: non distended Microbiology Date/Time Source Procedure Growth Status 07/28/16 13:30 Blood Blood Culture - Preliminary NO GROWTH AFTER 24 HOURS Resulted 07/28/16 13:15 Blood Blood Culture - Preliminary NO GROWTH AFTER 24 HOURS Resulted 07/29/16 16:10 Sputum Gram Stain - Final Resulted 07/29/16 16:10 Sputum Sputum Culture Pending Resulted 07/28/16 13:40 Nasal Nares MRSA Culture - Final Staphylococcus Aureus - Mrsa Complete Laboratory Tests Test 07/30/16 03:54 White Blood Count 11.1 K/UL (4.8-10.8) H Red Blood Count 3.45 M/UL (4.20-5.40) L Hemoglobin 10.1 G/DL (12.0-16.0) L Hematocrit 31.6 % (37.0-47.0) L Mean Corpuscular Volume 92 FL (80-99) Mean Corpuscular Hemoglobin 29.4 PG (27.0-31.0) Mean Corpuscular Hemoglobin Concent 32.1 G/DL (32.0-36.0) Red Cell Distribution Width 14.2 % (11.6-14.8) Platelet Count 252 K/UL (150-450) Mean Platelet Volume 7.5 FL (6.5-10.1) Neutrophils (%) (Auto) 81.5 % (45.0-75.0) H Lymphocytes (%) (Auto) 12.0 % (20.0-45.0) L Monocytes (%) (Auto) 3.7 % (1.0-10.0) Eosinophils (%) (Auto) 2.5 % (0.0-3.0) Basophils (%) (Auto) 0.4 % (0.0-2.0) Sodium Level 148 mEQ/L (135-145) H Potassium Level 3.6 mEQ/L (3.4-4.9) Chloride Level 100 mEQ/L (98-107) Carbon Dioxide Level 43 mEQ/L (20-30) *H Anion Gap 5 (5-15) Blood Urea Nitrogen 21 mg/dL (7-23) Creatinine 0.8 mg/dL (0.5-0.9) Estimat Glomerular Filtration Rate mL/min (>60) Glucose Level 114 mg/dL (74-106) H Calcium Level 9.4 mg/dL (8.6-10.2) Total Bilirubin < 0.2 mg/dL (0.0-1.2) Aspartate Amino Transf (AST/SGOT) 13 U/L (5-40) Alanine Aminotransferase (ALT/SGPT) 10 U/L (3-33) Alkaline Phosphatase 60 U/L (35-104) Pro-B-Type Natriuretic Peptide 4992 pg/mL (0-450) H Total Protein 6.3 g/dL (6.6-8.7) L Albumin 2.9 g/dL (3.5-5.2) L Globulin 3.4 g/dL Albumin/Globulin Ratio 0.8 (1.0-2.7) L Current Medications Medications (Trade) Dose Ordered Sig/Mallory Route PRN Reason Start Time Stop Time Status Last Admin Dose Admin Acetaminophen (Tylenol) 650 mg Q4H PRN ORAL T>100.5 07/28/16 15:30 08/27/16 15:29 Acetazolamide (Diamox 500mg Inj) 250 mg EVERY 12 HOURS IVP 07/30/16 12:00 07/31/16 21:01 Al Hydroxide/Mg Hydroxide (Mylanta II) 30 ml Q6H PRN GT dyspepsia 07/29/16 03:30 08/28/16 03:29 Albuterol/ Ipratropium 3 ml 3 ml Q4H PRN HHN Shortness of Breath 07/28/16 15:30 08/02/16 15:29 Cefepime HCl/ Dextrose (Maxipime/D5W) 55 ml @ 110 mls/hr Q24H IV 07/28/16 20:00 08/04/16 19:59 07/29/16 20:12 Chlorhexidine Gluconate 1 applic 1 applic Q24H TOPIC 07/30/16 01:00 08/29/16 00:59 07/30/16 01:13 Clonidine HCl (Catapres) 0.1 mg Q6H PRN GT SBP>160 07/29/16 03:30 08/28/16 03:29 Furosemide/ Dextrose (Lasix/D5W) 110 ml @ 11 mls/hr Q10H IV 07/29/16 12:30 08/28/16 12:29 07/30/16 08:38 Heparin Sodium (Porcine) (Heparin 5000 units/ml) 5,000 units EVERY 12 HOURS SUBQ 07/28/16 21:00 08/27/16 20:59 07/30/16 08:32 Heparin Sodium/ Sodium Chloride (Heparin 2000 units/Ns 1000ml premix) 2,000 unit ONCE PRN INJ PICC PLACEMENT 07/29/16 15:15 07/30/16 23:59 Levothyroxine Sodium (Synthroid) 25 mcg DAILY GT 07/29/16 09:00 08/28/16 08:59 07/30/16 08:31 Lidocaine HCl (Xylocaine 1% 30ml) 30 ml ONCE PRN INJ PICC PLACEMENT 07/29/16 15:15 07/30/16 23:59 Lorazepam (Ativan 2mg/ml 1ml) 1 mg Q4H PRN IV For Anxiety 07/30/16 10:15 08/06/16 10:14 07/30/16 10:21 Nitroglycerin (Ntg) 0.4 mg Q5M PRN SL Prn Chest Pain 07/28/16 15:30 08/27/16 15:29 Ondansetron HCl (Zofran) 4 mg Q6H PRN IVP Nausea & Vomiting 07/28/16 15:30 08/27/16 15:29 Polyethylene Glycol (Miralax) 17 gm DAILYPRN PRN GT Constipation 07/29/16 01:15 08/28/16 01:14 Promethazine HCl/ Codeine (Phenergan with Codeine) 5 ml Q4H PRN GT For Cough 07/29/16 03:30 08/28/16 03:29 Sodium Bicarbonate (Sodium Bicarbonate 4%) 1 ml ONCE PRN INJ PICC PLACEMENT 07/29/16 15:15 07/30/16 23:59 Temazepam (Restoril) 15 mg HSPRN PRN GT Insomnia 07/29/16 01:15 08/05/16 01:14 KIMO CEDEÑO M.D. July 30, 2016 11:43
[2016-07-30 12:00] VITALS: BP 147/57
[2016-07-30] MEDS: acetaZOLAMIDE 500mg Inj IVP SCH ×2 (13:00→22:04)
[2016-07-30] MEDS ORDERED: NS 275ml ONE (14:34)
[2016-07-30] MEDS ORDERED: Tubing IV Secondary IV ONE (14:34)
--- NOTE | 2016-07-30 15:55 | Wound Care Consultation ---
Wound Assessment Wound Assessment : Wound Present on Admission: Yes New Wound: No Status Change of Wound: No Wound Location Body Site Modif: right, lateral Wound Location Body Site: chest Wound Type: scar Jennifer Test: Does not Jennifer Wound Thickness: Partial Thickness Wound Length: 4.0 Wound Width: 0.8 Percent of Wound [place]/Red: 100 Wound Drainage Amount: None Wound Drainage Odor: None/Absent Tissue Surrounding Wound: Intact Wound General Appearance: Asymptomatic, Reddened Wound Comment #1 Left lateral chest scar tissue. RIAZ HUSSEIN RN July 30, 2016 15:55
[2016-07-30 16:00] VITALS: BP 132/74
[2016-07-30 20:00] VITALS: BP 136/70
[2016-07-30] MEDS: Cefepime HCl 1 GM in D5W 55 ML IV SCH (20:06)
[2016-07-31] VITALS: BP 120/61
[2016-07-31] MEDS: Dyna-Hex 2% Top Sol 8oz TOPIC SCH (01:17)
[2016-07-31 04:00] VITALS: BP 112/61
[2016-07-31 04:32] LABS: BASOPHILS % (AUTO) 0.3 % (0.0-2.0); EOSINOPHILS % (AUTO) 1.4 % (0.0-3.0); LYMPHOCYTES % (AUTO) 12.4 % (20.0-45.0); MEAN CORPUSCULAR HEMOGLOBIN 28.7 PG (27.0-31.0); MEAN CORPUSCULAR HGB CONC 32.4 G/DL (32.0-36.0); MEAN CORPUSCULAR VOLUME 89 FL (80-99); MEAN PLATELET VOLUME 7.3 FL (6.5-10.1); MONOCYTES % (AUTO) 4.2 % (1.0-10.0); NEUTROPHILS % (AUTO) 81.7 % (45.0-75.0); PLATELET COUNT 319 K/UL (150-450); RED BLOOD COUNT 3.94 M/UL (4.20-5.40); RED CELL DISTRIBUTION WIDTH 14.2 % (11.6-14.8); WHITE BLOOD COUNT 13.2 K/UL (4.8-10.8)
[2016-07-31 04:39] LABS: PROTHROMBIN TIME 10.3 SEC (9.30-11.50)
[2016-07-31 04:51] LABS: ALANINE AMINOTRANSFERASE 10 U/L (3-33); ALBUMIN/GLOBULIN RATIO 0.7 (1.0-2.7); ASPARTATE AMINO TRANSFERASE 13 U/L (5-40); CALCIUM 10.2 mg/dL (8.6-10.2); CHLORIDE 92 mEQ/L (98-107); CREATININE 0.9 mg/dL (0.5-0.9); HEMOLYSIS 0; POTASSIUM 3.4 mEQ/L (3.4-4.9); SODIUM 145 mEQ/L (135-145); TOTAL PROTEIN 6.9 g/dL (6.6-8.7)
[2016-07-31 04:58] LABS: ANION GAP 3 (5-15); CARBON DIOXIDE 50 mEQ/L (20-30)
[2016-07-31 05:49] LABS: HEMOLYSIS 2; IRON 31 ug/dL (37-145); TOTAL IRON BINDING CAPACITY 242 ug/dL (250-400)
[2016-07-31 06:06] LABS: ERYTHROCYTE SEDIMENTATION RATE 100 MM/HR (0-42); RETICULOCYTE COUNT 0.2 % (0.0-2.0)
[2016-07-31 06:12] LABS: LACTATE DEHYDROGENASE 193 U/L (135-230)
[2016-07-31 06:52] LABS: PATH BLOOD SMEAR/OMC SENT TO PATHOLOGIST
[2016-07-31 08:00] VITALS: BP 130/65
[2016-07-31] MEDS: Levothyroxine 25mcg tab GT SCH (08:21)
[2016-07-31] MEDS: Heparin 5000 units/ml inj SUBQ SCH ×2 (08:22→20:26)
--- NOTE | 2016-07-31 08:58 | Pulmonology Progress Note ---
Assessment/Plan Problems: (1) Respiratory failure (2) UTI (urinary tract infection) (3) CHF (congestive heart failure) (4) COPD (chronic obstructive pulmonary disease) (5) Diabetes mellitus, type II (6) Cerebral vascular disease (7) Alzheimer's dementia (8) Feeding by G-tube (9) Hypertension Assessment/Plan echo showed EF of 55% continue lasix lasix no cultures yet cxr bnp in am again back on BIPAP again add Diamox b/o rising CO2 Subjective ROS Limited/Unobtainable: No Constitutional: Reports: no symptoms HEENT: Repors: no symptoms Allergies: Coded Allergies: No Known Allergies (Unverified , 06/13/16) Objective Last 24 Hour Vital Signs Date Time Temp Pulse Resp B/P Pulse Ox O2 Delivery O2 Flow Rate FiO2 07/31/16 08:00 14.0 40 07/31/16 08:00 98.1 84 19 130/65 97 Bi-pap 40 07/31/16 07:15 84 20 98 Facial 40 07/31/16 07:15 98 Bi-pap 40 07/31/16 07:15 Bi-pap 40 07/31/16 05:12 88 34 95 Facial 40 07/31/16 04:00 87 07/31/16 04:00 97.8 87 24 112/61 95 Bi-pap 40 07/31/16 04:00 14.0 40 07/31/16 03:17 87 32 96 Facial 40 07/31/16 00:49 91 37 94 Facial 40 07/31/16 00:00 14.0 40 07/31/16 00:00 97.9 86 24 120/61 95 Venturi Mask 35 07/31/16 00:00 97.9 86 24 120/61 94 Venturi Mask 07/31/16 00:00 88 07/30/16 20:00 87 07/30/16 20:00 98.1 87 28 136/70 95 Venturi Mask 35 07/30/16 18:55 Venturi Mask 6.0 35 07/30/16 18:54 93 Venturi Mask 6.0 35 07/30/16 16:00 97.9 85 20 132/74 95 Venturi Mask 35 07/30/16 15:19 86 07/30/16 12:22 82 07/30/16 12:00 97.2 84 22 147/57 96 Venturi Mask 7.0 Intake and Output 07/30/16 07/31/16 19:00 07:00 Intake Total 644 ml 991 ml Balance 644 ml 991 ml Free Water 125 ml 310 ml IV Total 114 ml 231 ml Tube Feeding 405 ml 450 ml # Voids 3 4 # Bowel Movements 3 General Appearance: WD/WN HEENT: normocephalic, atraumatic Respiratory/Chest: chest wall non-tender, lungs clear Breasts: no masses Cardiovascular: normal peripheral pulses, normal rate Abdomen: normal bowel sounds, soft, non tender Extremities: no cyanosis, no clubbing Skin: no rash Neurologic/Psychiatric: clinical data manager II-XII grossly normal Lymphatic: no neck adenopathy Microbiology Date/Time Source Procedure Growth Status 07/28/16 13:30 Blood Blood Culture - Preliminary NO GROWTH AFTER 24 HOURS Resulted 07/28/16 13:15 Blood Blood Culture - Preliminary NO GROWTH AFTER 24 HOURS Resulted 07/30/16 18:10 Other(Specify in comment) Catheter Tip Culture - Preliminary NO GROWTH Resulted 07/29/16 16:10 Sputum Gram Stain - Final Resulted 07/29/16 16:10 Sputum Sputum Culture Pending Resulted 07/28/16 13:40 Nasal Nares MRSA Culture - Final Staphylococcus Aureus - Mrsa Complete Laboratory Tests 07/31/16 03:30: White Blood Count 13.2H, Red Blood Count 3.94L, Hemoglobin 11.3L, Hematocrit 34.9L, Mean Corpuscular Volume 89, Mean Corpuscular Hemoglobin 28.7, Mean Corpuscular Hemoglobin Concent 32.4, Red Cell Distribution Width 14.2, Platelet Count 319, Mean Platelet Volume 7.3, Neutrophils (%) (Auto) 81.7H, Lymphocytes ( %) (Auto) 12.4L, Monocytes (%) (Auto) 4.2, Eosinophils (%) (Auto) 1.4, Basophils (%) (Auto) 0.3, Erythrocyte Sedimentation Rate 100H, Reticulocyte Count 0.2, Prothrombin Time 10.3, Prothromb Time International Ratio 1.0, Activated Partial Thromboplast Time 28, Sodium Level 145, Potassium Level 3.4, Chloride Level 92L, Carbon Dioxide Level 50*H, Anion Gap 3L, Blood Urea Nitrogen 29H, Creatinine 0.9, Estimat Glomerular Filtration Rate , Glucose Level 126H, Calcium Level 10.2, Iron Level 31L, Total Iron Binding Capacity 242L , Percent Iron Saturation 13L, Unsaturated Iron Binding 211, Total Bilirubin < 0.2, Aspartate Amino Transf (AST/SGOT) 13, Alanine Aminotransferase (ALT/SGPT) 10, Alkaline Phosphatase 64, Lactate Dehydrogenase 193, Pro-B-Type Natriuretic Peptide 3271H, Total Protein 6.9, Albumin 3.0L, Globulin 3.9, Albumin/Globulin Ratio 0.7L, Carcinoembryonic Antigen 3.9H, Vitamin B12 Level 641, Folate [ Pending] Current Medications Medications (Trade) Dose Ordered Sig/Mallory Route PRN Reason Start Time Stop Time Status Last Admin Dose Admin Acetaminophen (Tylenol) 650 mg Q4H PRN ORAL T>100.5 07/28/16 15:30 08/27/16 15:29 Acetazolamide (Diamox 500mg Inj) 250 mg EVERY 12 HOURS IVP 07/30/16 12:00 07/31/16 21:01 07/30/16 22:04 Al Hydroxide/Mg Hydroxide (Mylanta II) 30 ml Q6H PRN GT dyspepsia 07/29/16 03:30 08/28/16 03:29 Albuterol/ Ipratropium 3 ml 3 ml Q4H PRN HHN Shortness of Breath 07/28/16 15:30 08/02/16 15:29 Cefepime HCl/ Dextrose (Maxipime/D5W) 55 ml @ 110 mls/hr Q24H IV 07/28/16 20:00 08/04/16 19:59 07/30/16 20:06 Chlorhexidine Gluconate 1 applic 1 applic Q24H TOPIC 07/30/16 01:00 08/29/16 00:59 07/31/16 01:17 Clonidine HCl (Catapres) 0.1 mg Q6H PRN GT SBP>160 07/29/16 03:30 08/28/16 03:29 Furosemide/ Dextrose (Lasix/D5W) 110 ml @ 11 mls/hr Q10H IV 07/29/16 12:30 08/28/16 12:29 07/31/16 05:10 Heparin Sodium (Porcine) (Heparin 5000 units/ml) 5,000 units EVERY 12 HOURS SUBQ 07/28/16 21:00 08/27/16 20:59 07/31/16 08:22 Levothyroxine Sodium (Synthroid) 25 mcg DAILY GT 07/29/16 09:00 08/28/16 08:59 07/31/16 08:21 Lorazepam (Ativan 2mg/ml 1ml) 1 mg Q4H PRN IV For Anxiety 07/30/16 10:15 08/06/16 10:14 07/30/16 23:21 Nitroglycerin (Ntg) 0.4 mg Q5M PRN SL Prn Chest Pain 07/28/16 15:30 08/27/16 15:29 Ondansetron HCl (Zofran) 4 mg Q6H PRN IVP Nausea & Vomiting 07/28/16 15:30 08/27/16 15:29 Polyethylene Glycol (Miralax) 17 gm DAILYPRN PRN GT Constipation 07/29/16 01:15 08/28/16 01:14 Promethazine HCl/ Codeine (Phenergan with Codeine) 5 ml Q4H PRN GT For Cough 07/29/16 03:30 08/28/16 03:29 Temazepam (Restoril) 15 mg HSPRN PRN GT Insomnia 07/29/16 01:15 08/05/16 01:14 MICHELLE ROSE July 31, 2016 08:58
[2016-07-31] MEDS: acetaZOLAMIDE 500mg Inj IVP SCH ×2 (09:23→20:25)
[2016-07-31 09:49] LABS: ABG ALLEN TEST POSITIVE; ABG BASE EXCESS 20.5; ABG PCO2 80.1 mmHg (35.0-45.0)
[2016-07-31 12:00] VITALS: BP 123/79
[2016-07-31] MEDS ORDERED: Tubing IV Secondary IV ONE (14:13)
[2016-07-31 16:14] VITALS: BP 137/78
[2016-07-31 20:00] VITALS: BP 117/58
[2016-07-31] MEDS: Cefepime HCl 1 GM in D5W 55 ML IV SCH (20:25)
--- NOTE | 2016-07-31 21:33 | Infectious Diseases Prog Note ---
Assessment/Plan Assessment/Plan A: The patient is an 89-year-old female UTI UCX P Mirabilis leukocytosis increased Probable Pna SCx: GNR SP removal of Crr line Cath Cx of tip :P Dementia HTN CHF CVA Diabetes Dysphagia, status post PEG placement CHF PLAN: change IV Cefepime d # 4 to Zosyn d# 1 Monitor CBC Monitor BMP. Monitor cultures (blood , SP ) Monitors chest x-ray Subjective Allergies: Coded Allergies: No Known Allergies (Unverified , 06/13/16) Subjective on BiPAP since noon Objective Vital Signs Last 24 Hour Vital Signs Date Time Temp Pulse Resp B/P Pulse Ox O2 Delivery O2 Flow Rate FiO2 07/31/16 21:14 80 24 95 Facial 40 07/31/16 20:00 98.1 84 18 117/58 Bi-pap 07/31/16 20:00 40 07/31/16 19:31 97 Bi-pap 40 07/31/16 19:31 Bi-pap 40 07/31/16 19:14 85 07/31/16 18:54 85 23 94 Facial 40 07/31/16 17:20 88 28 96 Facial 40 07/31/16 16:14 97.7 88 21 137/78 96 Bi-pap 40 07/31/16 16:00 89 07/31/16 16:00 40 07/31/16 16:00 40 07/31/16 15:20 89 24 96 Facial 40 07/31/16 13:20 84 24 97 Facial 40 07/31/16 12:00 40 07/31/16 12:00 97.5 85 19 123/79 99 Bi-pap 40 07/31/16 11:50 84 07/31/16 11:15 85 14 98 Facial 40 07/31/16 11:00 40 07/31/16 09:20 83 22 94 07/31/16 08:00 14.0 40 07/31/16 08:00 98.1 84 19 130/65 97 Bi-pap 40 07/31/16 07:50 84 07/31/16 07:15 84 20 98 Facial 40 07/31/16 07:15 98 Bi-pap 40 07/31/16 07:15 Bi-pap 40 07/31/16 05:12 88 34 95 Facial 40 07/31/16 04:00 87 07/31/16 04:00 97.8 87 24 112/61 95 Bi-pap 40 07/31/16 04:00 14.0 40 07/31/16 03:17 87 32 96 Facial 40 07/31/16 00:49 91 37 94 Facial 40 07/31/16 00:00 14.0 40 07/31/16 00:00 97.9 86 24 120/61 95 Venturi Mask 35 07/31/16 00:00 97.9 86 24 120/61 94 Venturi Mask 07/31/16 00:00 88 Height (Feet): 5 Height (Inches): 6.00 Weight (Pounds): 134 HEENT: anicteric Respiratory/Chest: chest wall non-tender, accessory muscle use Cardiovascular: normal rate Abdomen: no organomegaly Microbiology Date/Time Source Procedure Growth Status 07/30/16 18:10 Other(Specify in comment) Catheter Tip Culture - Preliminary NO GROWTH Resulted 07/29/16 16:10 Sputum Gram Stain - Final Resulted 07/29/16 16:10 Sputum Culture - Preliminary Gram Negative Jj Resulted Laboratory Tests Test 07/31/16 03:30 07/31/16 09:39 07/31/16 18:55 White Blood Count 13.2 K/UL (4.8-10.8) H Red Blood Count 3.94 M/UL (4.20-5.40) L Hemoglobin 11.3 G/DL (12.0-16.0) L Hematocrit 34.9 % (37.0-47.0) L Mean Corpuscular Volume 89 FL (80-99) Mean Corpuscular Hemoglobin 28.7 PG (27.0-31.0) Mean Corpuscular Hemoglobin Concent 32.4 G/DL (32.0-36.0) Red Cell Distribution Width 14.2 % (11.6-14.8) Platelet Count 319 K/UL (150-450) Mean Platelet Volume 7.3 FL (6.5-10.1) Neutrophils (%) (Auto) 81.7 % (45.0-75.0) H Lymphocytes (%) (Auto) 12.4 % (20.0-45.0) L Monocytes (%) (Auto) 4.2 % (1.0-10.0) Eosinophils (%) (Auto) 1.4 % (0.0-3.0) Basophils (%) (Auto) 0.3 % (0.0-2.0) Erythrocyte Sedimentation Rate 100 MM/HR (0-42) H Reticulocyte Count 0.2 % (0.0-2.0) Prothrombin Time 10.3 SEC (9.30-11.50) Prothromb Time International Ratio 1.0 (0.9-1.1) Activated Partial Thromboplast Time 28 SEC (23-33) Sodium Level 145 mEQ/L (135-145) Potassium Level 3.4 mEQ/L (3.4-4.9) Chloride Level 92 mEQ/L (98-107) L Carbon Dioxide Level 50 mEQ/L (20-30) *H Anion Gap 3 (5-15) L Blood Urea Nitrogen 29 mg/dL (7-23) H Creatinine 0.9 mg/dL (0.5-0.9) Estimat Glomerular Filtration Rate mL/min (>60) Glucose Level 126 mg/dL (74-106) H Calcium Level 10.2 mg/dL (8.6-10.2) Iron Level 31 ug/dL (37-145) L Total Iron Binding Capacity 242 ug/dL (250-400) L Percent Iron Saturation 13 % (15-50) L Unsaturated Iron Binding 211 ug/dL (112-346) Total Bilirubin < 0.2 mg/dL (0.0-1.2) Aspartate Amino Transf (AST/SGOT) 13 U/L (5-40) Alanine Aminotransferase (ALT/SGPT) 10 U/L (3-33) Alkaline Phosphatase 64 U/L (35-104) Lactate Dehydrogenase 193 U/L (135-230) Pro-B-Type Natriuretic Peptide 3271 pg/mL (0-450) H Total Protein 6.9 g/dL (6.6-8.7) Albumin 3.0 g/dL (3.5-5.2) L Globulin 3.9 g/dL Albumin/Globulin Ratio 0.7 (1.0-2.7) L Carcinoembryonic Antigen 3.9 ng/mL H Vitamin B12 Level 641 pg/mL (211-946) Folate Pending Arterial Blood pH 7.407 (7.350-7.450) Arterial Blood Partial Pressure CO2 80.1 mmHg (35.0-45.0) *H Arterial Blood Partial Pressure O2 82.0 mmHg (75.0-100.0) Arterial Blood HCO3 49.3 mmol/L (22.0-26.0) H Arterial Blood Oxygen Saturation 95.0 % (92.0-98.0) Arterial Blood Base Excess 20.5 Homar Test Positive Stool Occult Blood Pending Current Medications Medications (Trade) Dose Ordered Sig/Mallory Route PRN Reason Start Time Stop Time Status Last Admin Dose Admin Acetaminophen (Tylenol) 650 mg Q4H PRN ORAL T>100.5 07/28/16 15:30 08/27/16 15:29 Al Hydroxide/Mg Hydroxide (Mylanta II) 30 ml Q6H PRN GT dyspepsia 07/29/16 03:30 08/28/16 03:29 Albuterol/ Ipratropium 3 ml 3 ml Q4H PRN HHN Shortness of Breath 07/28/16 15:30 08/02/16 15:29 Cefepime HCl/ Dextrose (Maxipime/D5W) 55 ml @ 110 mls/hr Q24H IV 07/28/16 20:00 08/04/16 19:59 07/31/16 20:25 Chlorhexidine Gluconate 1 applic 1 applic Q24H TOPIC 07/30/16 01:00 08/29/16 00:59 07/31/16 01:17 Clonidine HCl (Catapres) 0.1 mg Q6H PRN GT SBP>160 07/29/16 03:30 08/28/16 03:29 Furosemide/ Dextrose (Lasix/D5W) 110 ml @ 11 mls/hr Q10H IV 07/29/16 12:30 08/28/16 12:29 07/31/16 15:52 Heparin Sodium (Porcine) (Heparin 5000 units/ml) 5,000 units EVERY 12 HOURS SUBQ 07/28/16 21:00 08/27/16 20:59 07/31/16 20:26 Levothyroxine Sodium (Synthroid) 25 mcg DAILY GT 07/29/16 09:00 08/28/16 08:59 07/31/16 08:21 Lorazepam (Ativan 2mg/ml 1ml) 1 mg Q4H PRN IV For Anxiety 07/30/16 10:15 08/06/16 10:14 07/30/16 23:21 Nitroglycerin (Ntg) 0.4 mg Q5M PRN SL Prn Chest Pain 07/28/16 15:30 08/27/16 15:29 Ondansetron HCl (Zofran) 4 mg Q6H PRN IVP Nausea & Vomiting 07/28/16 15:30 08/27/16 15:29 Polyethylene Glycol (Miralax) 17 gm DAILYPRN PRN GT Constipation 07/29/16 01:15 08/28/16 01:14 Promethazine HCl/ Codeine (Phenergan with Codeine) 5 ml Q4H PRN GT For Cough 07/29/16 03:30 08/28/16 03:29 Temazepam (Restoril) 15 mg HSPRN PRN GT Insomnia 07/29/16 01:15 08/05/16 01:14 KIMO CEDEÑO M.D. July 31, 2016 21:33
[2016-07-31] MEDS: Piperacillin/Tazobactam 3.375 GM in D5W 110 ML IVPB SCH (23:00)
[2016-08-01] VITALS: BP 125/44
[2016-08-01] MEDS: Dyna-Hex 2% Top Sol 8oz TOPIC SCH (01:13)
[2016-08-01 04:02] VITALS: BP 105/61
[2016-08-01 04:28] LABS: BASOPHILS % (AUTO) 0.4 % (0.0-2.0); EOSINOPHILS % (AUTO) 1.5 % (0.0-3.0); MEAN CORPUSCULAR HEMOGLOBIN 29.4 PG (27.0-31.0); MEAN CORPUSCULAR HGB CONC 32.7 G/DL (32.0-36.0); MEAN CORPUSCULAR VOLUME 90 FL (80-99); MEAN PLATELET VOLUME 7.1 FL (6.5-10.1); MONOCYTES % (AUTO) 5.3 % (1.0-10.0); NEUTROPHILS % (AUTO) 78.8 % (45.0-75.0); PLATELET COUNT 345 K/UL (150-450); RED BLOOD COUNT 3.93 M/UL (4.20-5.40); RED CELL DISTRIBUTION WIDTH 14.2 % (11.6-14.8); WHITE BLOOD COUNT 13.3 K/UL (4.8-10.8)
[2016-08-01 04:33] LABS: ALANINE AMINOTRANSFERASE 8 U/L (3-33); ALBUMIN/GLOBULIN RATIO 0.9 (1.0-2.7); ASPARTATE AMINO TRANSFERASE 12 U/L (5-40); CALCIUM 10.2 mg/dL (8.6-10.2); CHLORIDE 89 mEQ/L (98-107); CREATININE 1.1 mg/dL (0.5-0.9); HEMOLYSIS 2; POTASSIUM 3.4 mEQ/L (3.4-4.9); SODIUM 145 mEQ/L (135-145); TOTAL PROTEIN 6.7 g/dL (6.6-8.7)
[2016-08-01 05:07] LABS: ANION GAP 8 (5-15); CARBON DIOXIDE 48 mEQ/L (20-30)
[2016-08-01] MEDS: Piperacillin/Tazobactam 3.375 GM in D5W 110 ML IVPB SCH ×3 (06:00→21:07)
[2016-08-01 08:00] VITALS: BP 136/78
[2016-08-01] MEDS: Levothyroxine 25mcg tab GT SCH (08:28)
--- NOTE | 2016-08-01 08:37 | Infectious Diseases Prog Note ---
Assessment/Plan Assessment/Plan A: UTI Pneumonia Hypercapnic respiratory failure DM Dementia HPN MRSA carrier P; continue Zosyn will f/u cultures Subjective ROS Limited/Unobtainable: Yes Allergies: Coded Allergies: No Known Allergies (Unverified , 06/13/16) Objective Vital Signs Last 24 Hour Vital Signs Date Time Temp Pulse Resp B/P Pulse Ox O2 Delivery O2 Flow Rate FiO2 08/01/16 08:00 85 08/01/16 08:00 40 08/01/16 08:00 98.3 83 26 136/78 98 Bi-pap 40 08/01/16 07:18 Bi-pap 40 08/01/16 07:18 95 Bi-pap 40 08/01/16 07:18 80 23 95 Facial 40 08/01/16 05:22 85 25 98 Facial 40 08/01/16 04:02 95.7 85 17 105/61 96 Bi-pap 08/01/16 04:00 86 08/01/16 04:00 40 08/01/16 03:06 84 25 98 Facial 40 08/01/16 01:01 85 23 97 Facial 40 08/01/16 00:00 40 08/01/16 00:00 97.0 86 19 125/44 95 Bi-pap 08/01/16 00:00 86 07/31/16 23:02 84 21 95 Facial 40 07/31/16 21:14 80 24 95 Facial 40 07/31/16 20:00 98.1 84 18 117/58 Bi-pap 07/31/16 20:00 40 07/31/16 19:31 97 Bi-pap 40 07/31/16 19:31 Bi-pap 40 07/31/16 19:14 85 07/31/16 18:54 85 23 94 Facial 40 07/31/16 17:20 88 28 96 Facial 40 07/31/16 16:14 97.7 88 21 137/78 96 Bi-pap 40 07/31/16 16:00 89 07/31/16 16:00 40 07/31/16 16:00 40 07/31/16 15:20 89 24 96 Facial 40 07/31/16 13:20 84 24 97 Facial 40 07/31/16 12:00 40 07/31/16 12:00 97.5 85 19 123/79 99 Bi-pap 40 07/31/16 11:50 84 07/31/16 11:15 85 14 98 Facial 40 07/31/16 11:00 40 07/31/16 09:20 83 22 94 Height (Feet): 5 Height (Inches): 6.00 Weight (Pounds): 128 HEENT: other - on BIPAP Respiratory/Chest: decreased breath sounds Cardiovascular: normal rate Abdomen: soft, non tender, other - GT feeding Extremities: no edema, other - left arm PICC line Neurologic/Psychiatric: alert Microbiology Date/Time Source Procedure Growth Status 07/30/16 18:10 Other(Specify in comment) Catheter Tip Culture - Preliminary NO GROWTH AFTER 48 HOURS Resulted 07/29/16 16:10 Sputum Gram Stain - Final Resulted 07/29/16 16:10 Sputum Culture - Preliminary Gram Negative Jj Resulted Laboratory Tests Test 07/31/16 09:39 07/31/16 18:55 08/01/16 03:50 Arterial Blood pH 7.407 (7.350-7.450) Arterial Blood Partial Pressure CO2 80.1 mmHg (35.0-45.0) *H Arterial Blood Partial Pressure O2 82.0 mmHg (75.0-100.0) Arterial Blood HCO3 49.3 mmol/L (22.0-26.0) H Arterial Blood Oxygen Saturation 95.0 % (92.0-98.0) Arterial Blood Base Excess 20.5 Homar Test Positive Stool Occult Blood Pending White Blood Count 13.3 K/UL (4.8-10.8) H Red Blood Count 3.93 M/UL (4.20-5.40) L Hemoglobin 11.6 G/DL (12.0-16.0) L Hematocrit 35.3 % (37.0-47.0) L Mean Corpuscular Volume 90 FL (80-99) Mean Corpuscular Hemoglobin 29.4 PG (27.0-31.0) Mean Corpuscular Hemoglobin Concent 32.7 G/DL (32.0-36.0) Red Cell Distribution Width 14.2 % (11.6-14.8) Platelet Count 345 K/UL (150-450) Mean Platelet Volume 7.1 FL (6.5-10.1) Neutrophils (%) (Auto) 78.8 % (45.0-75.0) H Lymphocytes (%) (Auto) 14.0 % (20.0-45.0) L Monocytes (%) (Auto) 5.3 % (1.0-10.0) Eosinophils (%) (Auto) 1.5 % (0.0-3.0) Basophils (%) (Auto) 0.4 % (0.0-2.0) Sodium Level 145 mEQ/L (135-145) Potassium Level 3.4 mEQ/L (3.4-4.9) Chloride Level 89 mEQ/L (98-107) L Carbon Dioxide Level 48 mEQ/L (20-30) *H Anion Gap 8 (5-15) Blood Urea Nitrogen 44 mg/dL (7-23) H Creatinine 1.1 mg/dL (0.5-0.9) H Estimat Glomerular Filtration Rate mL/min (>60) Glucose Level 144 mg/dL (74-106) H Calcium Level 10.2 mg/dL (8.6-10.2) Total Bilirubin < 0.2 mg/dL (0.0-1.2) Aspartate Amino Transf (AST/SGOT) 12 U/L (5-40) Alanine Aminotransferase (ALT/SGPT) 8 U/L (3-33) Alkaline Phosphatase 62 U/L (35-104) Pro-B-Type Natriuretic Peptide 1382 pg/mL (0-450) H Total Protein 6.7 g/dL (6.6-8.7) Albumin 3.2 g/dL (3.5-5.2) L Globulin 3.5 g/dL Albumin/Globulin Ratio 0.9 (1.0-2.7) L Current Medications Medications (Trade) Dose Ordered Sig/Mallory Route PRN Reason Start Time Stop Time Status Last Admin Dose Admin Acetaminophen (Tylenol) 650 mg Q4H PRN ORAL T>100.5 07/28/16 15:30 08/27/16 15:29 Al Hydroxide/Mg Hydroxide (Mylanta II) 30 ml Q6H PRN GT dyspepsia 07/29/16 03:30 08/28/16 03:29 Albuterol/ Ipratropium (DuoNeb 0.5-3(2.5)mg/3ml) 3 ml Q4H PRN HHN Shortness of Breath 07/28/16 15:30 08/02/16 15:29 Chlorhexidine Gluconate 1 applic 1 applic Q24H TOPIC 07/30/16 01:00 08/29/16 00:59 08/01/16 01:13 Clonidine HCl (Catapres) 0.1 mg Q6H PRN GT SBP>160 07/29/16 03:30 08/28/16 03:29 Furosemide/ Dextrose (Lasix/D5W) 110 ml @ 11 mls/hr Q10H IV 07/29/16 12:30 08/28/16 12:29 08/01/16 01:11 Heparin Sodium (Porcine) (Heparin 5000 units/ml) 5,000 units EVERY 12 HOURS SUBQ 07/28/16 21:00 08/27/16 20:59 07/31/16 20:26 Levothyroxine Sodium (Synthroid) 25 mcg DAILY GT 07/29/16 09:00 08/28/16 08:59 07/31/16 08:21 Lorazepam 1 mg 1 mg Q4H PRN IV For Anxiety 07/30/16 10:15 08/06/16 10:14 07/30/16 23:21 Nitroglycerin (Ntg) 0.4 mg Q5M PRN SL Prn Chest Pain 07/28/16 15:30 08/27/16 15:29 Ondansetron HCl (Zofran) 4 mg Q6H PRN IVP Nausea & Vomiting 07/28/16 15:30 08/27/16 15:29 Piperacillin Sod/ Tazobactam Sod/ Dextrose (Zosyn/D5W) 110 ml @ 27.5 mls/hr EVERY 8 HOURS IVPB 07/31/16 23:00 08/05/16 22:59 08/01/16 06:00 Polyethylene Glycol (Miralax) 17 gm DAILYPRN PRN GT Constipation 07/29/16 01:15 08/28/16 01:14 Promethazine HCl/ Codeine (Phenergan with Codeine) 5 ml Q4H PRN GT For Cough 07/29/16 03:30 08/28/16 03:29 Temazepam (Restoril) 15 mg HSPRN PRN GT Insomnia 07/29/16 01:15 08/05/16 01:14 AAMIR PALENCIA August 01, 2016 08:37
[2016-08-01] MEDS: Heparin 5000 units/ml inj SUBQ SCH ×2 (08:39→21:06)
--- NOTE | 2016-08-01 10:40 | Diagnostic Imaging Report ---
Indication: Dyspnea Comparison: 07/31/16 A single view chest radiograph was obtained. Findings: Prominent pulmonary vascularity demonstrated. The heart is enlarged. There is a left pleural effusion. PICC line is in good position. The bones are osteopenic. 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
[2016-08-01 12:00] VITALS: BP 141/63
[2016-08-01] MEDS: LORazepam Inj 2mg/ml 1ml IV PRN (12:14)
--- NOTE | 2016-08-01 13:49 | Pulmonology Progress Note ---
Assessment/Plan Problems: (1) Respiratory failure (2) UTI (urinary tract infection) (3) CHF (congestive heart failure) (4) COPD (chronic obstructive pulmonary disease) (5) Diabetes mellitus, type II (6) Cerebral vascular disease (7) Alzheimer's dementia (8) Feeding by G-tube (9) Hypertension Assessment/Plan dc laxis drip, bun is rising, BNP dropped to 1000 echo showed EF of 55% MDR sputum cxr bnp in am again dc bipap, if goes to respiratory failure, will need intubation Subjective ROS Limited/Unobtainable: No Interval Events: on BIPAP Allergies: Coded Allergies: No Known Allergies (Unverified , 06/13/16) Objective Last 24 Hour Vital Signs Date Time Temp Pulse Resp B/P Pulse Ox O2 Delivery O2 Flow Rate FiO2 08/01/16 12:49 86 23 95 Facial 40 08/01/16 12:00 98.0 86 24 141/63 96 Bi-pap 40 08/01/16 12:00 83 08/01/16 12:00 40 08/01/16 10:37 83 19 96 Facial 40 08/01/16 08:59 81 23 96 Facial 40 08/01/16 08:00 85 08/01/16 08:00 40 08/01/16 08:00 98.3 83 26 136/78 98 Bi-pap 40 08/01/16 07:18 Bi-pap 40 08/01/16 07:18 95 Bi-pap 40 08/01/16 07:18 80 23 95 Facial 40 08/01/16 05:22 85 25 98 Facial 40 08/01/16 04:02 95.7 85 17 105/61 96 Bi-pap 08/01/16 04:00 86 08/01/16 04:00 40 08/01/16 03:06 84 25 98 Facial 40 08/01/16 01:01 85 23 97 Facial 40 08/01/16 00:00 40 08/01/16 00:00 97.0 86 19 125/44 95 Bi-pap 08/01/16 00:00 86 07/31/16 23:02 84 21 95 Facial 40 07/31/16 21:14 80 24 95 Facial 40 07/31/16 20:00 98.1 84 18 117/58 Bi-pap 07/31/16 20:00 40 07/31/16 19:31 97 Bi-pap 40 07/31/16 19:31 Bi-pap 40 07/31/16 19:14 85 07/31/16 18:54 85 23 94 Facial 40 07/31/16 17:20 88 28 96 Facial 40 07/31/16 16:14 97.7 88 21 137/78 96 Bi-pap 40 07/31/16 16:00 89 07/31/16 16:00 40 07/31/16 16:00 40 07/31/16 15:20 89 24 96 Facial 40 Intake and Output 07/31/16 08/01/16 19:00 07:00 Intake Total 863.5 ml 1019.5 ml Output Total 700 ml 1400 ml Balance 163.5 ml -380.5 ml Free Water 250 ml 125 ml IV Total 133.5 ml 379.5 ml Tube Feeding 450 ml 515 ml Other 30 ml Output Urine Total 700 ml 1400 ml # Voids 2 # Bowel Movements 2 General Appearance: WD/WN HEENT: normocephalic, atraumatic Respiratory/Chest: chest wall non-tender, lungs clear Cardiovascular: normal peripheral pulses, normal rate Abdomen: normal bowel sounds, soft, non tender Genitourinary: normal external genitalia Extremities: no cyanosis Skin: no rash, no lesions Neurologic/Psychiatric: 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 normal, no motor/sensory deficits Lymphatic: no neck adenopathy, no groin adenopathy Musculoskeletal: normal muscle bulk Microbiology Date/Time Source Procedure Growth Status 07/30/16 18:10 Other(Specify in comment) Catheter Tip Culture - Preliminary NO GROWTH AFTER 48 HOURS Resulted 07/29/16 16:10 Sputum Gram Stain - Final Resulted 07/29/16 16:10 Sputum Culture - Preliminary Klebsiella Pneumoniae - Mdr Proteus Mirabilis Resulted Laboratory Tests 07/31/16 18:55: Stool Occult Blood Negative 08/01/16 03:50: White Blood Count 13.3H, Red Blood Count 3.93L, Hemoglobin 11.6L, Hematocrit 35.3L, Mean Corpuscular Volume 90, Mean Corpuscular Hemoglobin 29.4, Mean Corpuscular Hemoglobin Concent 32.7, Red Cell Distribution Width 14.2, Platelet Count 345, Mean Platelet Volume 7.1, Neutrophils (%) (Auto) 78.8H, Lymphocytes ( %) (Auto) 14.0L, Monocytes (%) (Auto) 5.3, Eosinophils (%) (Auto) 1.5, Basophils (%) (Auto) 0.4, Sodium Level 145, Potassium Level 3.4, Chloride Level 89L, Carbon Dioxide Level 48*H, Anion Gap 8, Blood Urea Nitrogen 44H, Creatinine 1.1H, Estimat Glomerular Filtration Rate , Glucose Level 144H, Calcium Level 10.2, Total Bilirubin < 0.2, Aspartate Amino Transf (AST/SGOT) 12 , Alanine Aminotransferase (ALT/SGPT) 8, Alkaline Phosphatase 62, Pro-B-Type Natriuretic Peptide 1382H, Total Protein 6.7, Albumin 3.2L, Globulin 3.5, Albumin/Globulin Ratio 0.9L Current Medications Medications (Trade) Dose Ordered Sig/Mallory Route PRN Reason Start Time Stop Time Status Last Admin Dose Admin Acetaminophen (Tylenol) 650 mg Q4H PRN ORAL T>100.5 07/28/16 15:30 08/27/16 15:29 Al Hydroxide/Mg Hydroxide (Mylanta II) 30 ml Q6H PRN GT dyspepsia 07/29/16 03:30 08/28/16 03:29 Albuterol/ Ipratropium (DuoNeb 0.5-3(2.5)mg/3ml) 3 ml Q4H PRN HHN Shortness of Breath 07/28/16 15:30 08/02/16 15:29 Chlorhexidine Gluconate 1 applic 1 applic Q24H TOPIC 07/30/16 01:00 08/29/16 00:59 08/01/16 01:13 Clonidine HCl (Catapres) 0.1 mg Q6H PRN GT SBP>160 07/29/16 03:30 08/28/16 03:29 Furosemide/ Dextrose (Lasix/D5W) 110 ml @ 11 mls/hr Q10H IV 07/29/16 12:30 08/28/16 12:29 08/01/16 10:45 Heparin Sodium (Porcine) (Heparin 5000 units/ml) 5,000 units EVERY 12 HOURS SUBQ 07/28/16 21:00 08/27/16 20:59 08/01/16 08:39 Levothyroxine Sodium (Synthroid) 25 mcg DAILY GT 07/29/16 09:00 08/28/16 08:59 08/01/16 08:28 Lorazepam 1 mg 1 mg Q4H PRN IV For Anxiety 07/30/16 10:15 08/06/16 10:14 08/01/16 12:14 Nitroglycerin (Ntg) 0.4 mg Q5M PRN SL Prn Chest Pain 07/28/16 15:30 08/27/16 15:29 Ondansetron HCl (Zofran) 4 mg Q6H PRN IVP Nausea & Vomiting 07/28/16 15:30 08/27/16 15:29 Piperacillin Sod/ Tazobactam Sod/ Dextrose (Zosyn/D5W) 110 ml @ 27.5 mls/hr EVERY 8 HOURS IVPB 07/31/16 23:00 08/05/16 22:59 08/01/16 13:13 Polyethylene Glycol (Miralax) 17 gm DAILYPRN PRN GT Constipation 07/29/16 01:15 08/28/16 01:14 Promethazine HCl/ Codeine (Phenergan with Codeine) 5 ml Q4H PRN GT For Cough 07/29/16 03:30 08/28/16 03:29 Temazepam (Restoril) 15 mg HSPRN PRN GT Insomnia 07/29/16 01:15 08/05/16 01:14 MICHELLE ROSE August 01, 2016 13:49
[2016-08-01 16:00] VITALS: BP 122/62
[2016-08-01] MEDS ORDERED: NS 275ml ONE (16:34)
[2016-08-01 20:00] VITALS: BP 104/66
[2016-08-02] VITALS: BP 144/57
[2016-08-02] MEDS: Dyna-Hex 2% Top Sol 8oz TOPIC SCH (01:13)
[2016-08-02] MEDS: LORazepam Inj 2mg/ml 1ml IV PRN (02:09)
[2016-08-02 04:00] VITALS: BP 146/73
[2016-08-02 05:22] LABS: BASOPHILS % (AUTO) 0.3 % (0.0-2.0); EOSINOPHILS % (AUTO) 0.9 % (0.0-3.0); LYMPHOCYTES % (AUTO) 12.2 % (20.0-45.0); MEAN CORPUSCULAR HEMOGLOBIN 28.5 PG (27.0-31.0); MEAN CORPUSCULAR HGB CONC 31.4 G/DL (32.0-36.0); MEAN CORPUSCULAR VOLUME 90 FL (80-99); MEAN PLATELET VOLUME 7.1 FL (6.5-10.1); MONOCYTES % (AUTO) 4.8 % (1.0-10.0); NEUTROPHILS % (AUTO) 81.8 % (45.0-75.0); PLATELET COUNT 366 K/UL (150-450); RED BLOOD COUNT 4.53 M/UL (4.20-5.40); RED CELL DISTRIBUTION WIDTH 14.2 % (11.6-14.8); WHITE BLOOD COUNT 15.4 K/UL (4.8-10.8)
[2016-08-02 05:49] LABS: ALANINE AMINOTRANSFERASE 11 U/L (3-33); ALBUMIN/GLOBULIN RATIO 0.8 (1.0-2.7); ASPARTATE AMINO TRANSFERASE 16 U/L (5-40); CALCIUM 10.9 mg/dL (8.6-10.2); CHLORIDE 91 mEQ/L (98-107); CREATININE 1.3 mg/dL (0.5-0.9); HEMOLYSIS 4; POTASSIUM 3.7 mEQ/L (3.4-4.9); SODIUM 147 mEQ/L (135-145); TOTAL PROTEIN 7.7 g/dL (6.6-8.7)
[2016-08-02 05:57] LABS: ANION GAP 10 (5-15)
[2016-08-02] MEDS: Piperacillin/Tazobactam 3.375 GM in D5W 110 ML IVPB SCH (06:00)
[2016-08-02 06:08] LABS: CARBON DIOXIDE 46 mEQ/L (20-30)
[2016-08-02 08:00] VITALS: BP 130/77
[2016-08-02] MEDS: Levothyroxine 25mcg tab GT SCH (09:07)
[2016-08-02] MEDS: Heparin 5000 units/ml inj SUBQ SCH ×2 (09:08→21:01)
--- NOTE | 2016-08-02 11:08 | Diagnostic Imaging Report ---
Indication: Dyspnea Comparison: 08/01/16 A single view chest radiograph was obtained. Findings: There is a PICC line present on the left. The tip is in the right atrium. Heart is enlarged. Interstitium is prominent but chronic. Bones are osteopenic. Impression: No significant change from yesterday
[2016-08-02 12:00] VITALS: BP 138/71
--- NOTE | 2016-08-02 12:59 | Infectious Diseases Prog Note ---
Assessment/Plan Assessment/Plan A: The patient is an 89-year-old female UTI UCX P Mirabilis leukocytosis increased Probable Pna SCx: MDR Kleb and P mirabilis SP removal of Crr line Cath Cx of tip :P ANNELIESE Dementia HTN CHF CVA Diabetes Dysphagia, status post PEG placement CHF PLAN: cont Merrem and colistin INH d# 1 08/02 SP Zosyn d# 2 07/31 SP IV Cefepime d # 4 Monitor CBC Monitor BMP. Monitor cultures (blood, cath tip ) Monitors chest x-ray Subjective Allergies: Coded Allergies: No Known Allergies (Unverified , 06/13/16) Subjective afebrile Objective Vital Signs Last 24 Hour Vital Signs Date Time Temp Pulse Resp B/P Pulse Ox O2 Delivery O2 Flow Rate FiO2 08/02/16 12:00 92 08/02/16 12:00 97.9 91 16 138/71 96 Venturi Mask 96.0 08/02/16 08:00 98.2 94 22 130/77 95 Venturi Mask 40 08/02/16 08:00 94 08/02/16 07:21 95 Venturi Mask 40 08/02/16 07:21 Venturi Mask 8.0 40 08/02/16 04:00 87 08/02/16 04:00 8.0 40 08/02/16 04:00 97.3 94 22 146/73 96 Venturi Mask 40 08/02/16 00:00 98.1 87 22 144/57 94 Venturi Mask 40 08/02/16 00:00 8.0 40 08/01/16 22:50 87 08/01/16 20:00 8.0 40 08/01/16 20:00 98.2 86 14 104/66 95 Venturi Mask 40 08/01/16 19:36 86 08/01/16 19:23 Venturi Mask 8.0 40 08/01/16 19:22 96 Venturi Mask 40 08/01/16 16:00 87 08/01/16 16:00 98.7 82 25 122/62 93 Venturi Mask 8.0 40 08/01/16 15:15 8.0 40 08/01/16 15:09 86 20 98 Height (Feet): 5 Height (Inches): 6.00 Weight (Pounds): 128 HEENT: anicteric Respiratory/Chest: no respiratory distress Cardiovascular: regular rhythm Abdomen: no mass Microbiology Date/Time Source Procedure Growth Status 07/30/16 18:10 Other(Specify in comment) Catheter Tip Culture - Final NO GROWTH AFTER 4 DAYS Complete Laboratory Tests Test 08/02/16 04:20 White Blood Count 15.4 K/UL (4.8-10.8) H Red Blood Count 4.53 M/UL (4.20-5.40) Hemoglobin 12.9 G/DL (12.0-16.0) Hematocrit 41.0 % (37.0-47.0) Mean Corpuscular Volume 90 FL (80-99) Mean Corpuscular Hemoglobin 28.5 PG (27.0-31.0) Mean Corpuscular Hemoglobin Concent 31.4 G/DL (32.0-36.0) L Red Cell Distribution Width 14.2 % (11.6-14.8) Platelet Count 366 K/UL (150-450) Mean Platelet Volume 7.1 FL (6.5-10.1) Neutrophils (%) (Auto) 81.8 % (45.0-75.0) H Lymphocytes (%) (Auto) 12.2 % (20.0-45.0) L Monocytes (%) (Auto) 4.8 % (1.0-10.0) Eosinophils (%) (Auto) 0.9 % (0.0-3.0) Basophils (%) (Auto) 0.3 % (0.0-2.0) Sodium Level 147 mEQ/L (135-145) H Potassium Level 3.7 mEQ/L (3.4-4.9) Chloride Level 91 mEQ/L (98-107) L Carbon Dioxide Level 46 mEQ/L (20-30) *H Anion Gap 10 (5-15) Blood Urea Nitrogen 54 mg/dL (7-23) H Creatinine 1.3 mg/dL (0.5-0.9) H Estimat Glomerular Filtration Rate mL/min (>60) Glucose Level 135 mg/dL (74-106) H Calcium Level 10.9 mg/dL (8.6-10.2) H Total Bilirubin < 0.2 mg/dL (0.0-1.2) Aspartate Amino Transf (AST/SGOT) 16 U/L (5-40) Alanine Aminotransferase (ALT/SGPT) 11 U/L (3-33) Alkaline Phosphatase 70 U/L (35-104) Pro-B-Type Natriuretic Peptide 655 pg/mL (0-450) H Total Protein 7.7 g/dL (6.6-8.7) Albumin 3.5 g/dL (3.5-5.2) Globulin 4.2 g/dL Albumin/Globulin Ratio 0.8 (1.0-2.7) L Current Medications Medications (Trade) Dose Ordered Sig/Mallory Route PRN Reason Start Time Stop Time Status Last Admin Dose Admin Acetaminophen (Tylenol) 650 mg Q4H PRN ORAL T>100.5 07/28/16 15:30 08/27/16 15:29 Al Hydroxide/Mg Hydroxide (Mylanta II) 30 ml Q6H PRN GT dyspepsia 07/29/16 03:30 08/28/16 03:29 Albuterol/ Ipratropium (DuoNeb 0.5-3(2.5)mg/3ml) 3 ml Q4H PRN HHN Shortness of Breath 07/28/16 15:30 08/02/16 15:29 Chlorhexidine Gluconate (Caitlyn-Hex 2%) 1 applic Q24H TOPIC 07/30/16 01:00 08/29/16 00:59 08/02/16 01:13 Clonidine HCl (Catapres) 0.1 mg Q6H PRN GT SBP>160 07/29/16 03:30 08/28/16 03:29 Heparin Sodium (Porcine) (Heparin 5000 units/ml) 5,000 units EVERY 12 HOURS SUBQ 07/28/16 21:00 08/27/16 20:59 08/02/16 09:08 Levothyroxine Sodium (Synthroid) 25 mcg DAILY GT 07/29/16 09:00 08/28/16 08:59 08/02/16 09:07 Lorazepam 1 mg 1 mg Q4H PRN IV For Anxiety 07/30/16 10:15 08/06/16 10:14 08/02/16 02:09 Nitroglycerin (Ntg) 0.4 mg Q5M PRN SL Prn Chest Pain 07/28/16 15:30 08/27/16 15:29 Ondansetron HCl (Zofran) 4 mg Q6H PRN IVP Nausea & Vomiting 07/28/16 15:30 08/27/16 15:29 Piperacillin Sod/ Tazobactam Sod/ Dextrose (Zosyn/D5W) 110 ml @ 27.5 mls/hr EVERY 8 HOURS IVPB 07/31/16 23:00 08/05/16 22:59 08/02/16 06:00 Polyethylene Glycol (Miralax) 17 gm DAILYPRN PRN GT Constipation 07/29/16 01:15 08/28/16 01:14 Promethazine HCl/ Codeine (Phenergan with Codeine) 5 ml Q4H PRN GT For Cough 07/29/16 03:30 08/28/16 03:29 Temazepam (Restoril) 15 mg HSPRN PRN GT Insomnia 07/29/16 01:15 08/05/16 01:14 KIMO CEDEÑO M.D. August 02, 2016 12:59
[2016-08-02] MEDS: Meropenem 1 GM in NS 110 ML IVPB SCH (13:57)
[2016-08-02] MEDS: Colistin for inhalation INH SCH ×2 (14:00→23:09)
--- NOTE | 2016-08-02 15:54 | Pulmonology Progress Note ---
Assessment/Plan Problems: (1) Respiratory failure (2) UTI (urinary tract infection) (3) CHF (congestive heart failure) (4) COPD (chronic obstructive pulmonary disease) (5) Diabetes mellitus, type II (6) Cerebral vascular disease (7) Alzheimer's dementia (8) Feeding by G-tube (9) Hypertension Assessment/Plan off laxis drip, bun is rising, BNP dropped to 1000 echo showed EF of 55% MDR sputum cxr no acute infiltrate social service to find family to talk about plan of care. Subjective ROS Limited/Unobtainable: Yes Interval Events: off bipap, looks comfortable Allergies: Coded Allergies: No Known Allergies (Unverified , 06/13/16) Objective Last 24 Hour Vital Signs Date Time Temp Pulse Resp B/P Pulse Ox O2 Delivery O2 Flow Rate FiO2 08/02/16 12:00 92 08/02/16 12:00 97.9 91 16 138/71 96 Venturi Mask 96.0 08/02/16 08:00 98.2 94 22 130/77 95 Venturi Mask 40 08/02/16 08:00 94 08/02/16 07:21 95 Venturi Mask 40 08/02/16 07:21 Venturi Mask 8.0 40 08/02/16 04:00 87 08/02/16 04:00 8.0 40 08/02/16 04:00 97.3 94 22 146/73 96 Venturi Mask 40 08/02/16 00:00 98.1 87 22 144/57 94 Venturi Mask 40 08/02/16 00:00 8.0 40 08/01/16 22:50 87 08/01/16 20:00 8.0 40 08/01/16 20:00 98.2 86 14 104/66 95 Venturi Mask 40 08/01/16 19:36 86 08/01/16 19:23 Venturi Mask 8.0 40 08/01/16 19:22 96 Venturi Mask 40 08/01/16 16:00 87 08/01/16 16:00 98.7 82 25 122/62 93 Venturi Mask 8.0 40 Intake and Output 08/01/16 08/02/16 19:00 07:00 Intake Total 949.5 ml 987.5 ml Output Total 1000 ml 575 ml Balance -50.5 ml 412.5 ml Free Water 250 ml 310 ml IV Total 269.5 ml 137.5 ml Tube Feeding 430 ml 540 ml Output Urine Total 1000 ml 575 ml General Appearance: WD/WN HEENT: normocephalic, atraumatic Respiratory/Chest: chest wall non-tender, lungs clear Cardiovascular: normal peripheral pulses, normal rate Abdomen: normal bowel sounds, soft, non tender Genitourinary: normal external genitalia Extremities: no cyanosis Skin: no rash 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 grossly normal, abnormal gait, responsive Lymphatic: no groin adenopathy Microbiology Date/Time Source Procedure Growth Status 07/30/16 18:10 Other(Specify in comment) Catheter Tip Culture - Final NO GROWTH AFTER 4 DAYS Complete Laboratory Tests 08/02/16 04:20: White Blood Count 15.4H, Red Blood Count 4.53, Hemoglobin 12.9, Hematocrit 41.0 , Mean Corpuscular Volume 90, Mean Corpuscular Hemoglobin 28.5, Mean Corpuscular Hemoglobin Concent 31.4L, Red Cell Distribution Width 14.2, Platelet Count 366, Mean Platelet Volume 7.1, Neutrophils (%) (Auto) 81.8H, Lymphocytes (%) (Auto) 12.2L, Monocytes (%) (Auto) 4.8, Eosinophils (%) (Auto) 0.9, Basophils (%) (Auto) 0.3, Sodium Level 147H, Potassium Level 3.7, Chloride Level 91L, Carbon Dioxide Level 46*H, Anion Gap 10, Blood Urea Nitrogen 54H, Creatinine 1.3H, Estimat Glomerular Filtration Rate , Glucose Level 135H, Calcium Level 10.9H, Total Bilirubin < 0.2, Aspartate Amino Transf (AST/SGOT) 16 , Alanine Aminotransferase (ALT/SGPT) 11, Alkaline Phosphatase 70, Pro-B-Type Natriuretic Peptide 655H, Total Protein 7.7, Albumin 3.5, Globulin 4.2, Albumin/ Globulin Ratio 0.8L Current Medications Medications (Trade) Dose Ordered Sig/Mallory Route PRN Reason Start Time Stop Time Status Last Admin Dose Admin Acetaminophen (Tylenol) 650 mg Q4H PRN ORAL T>100.5 07/28/16 15:30 08/27/16 15:29 Al Hydroxide/Mg Hydroxide (Mylanta II) 30 ml Q6H PRN GT dyspepsia 07/29/16 03:30 08/28/16 03:29 Chlorhexidine Gluconate (Caitlyn-Hex 2%) 1 applic Q24H TOPIC 07/30/16 01:00 08/29/16 00:59 08/02/16 01:13 Clonidine HCl (Catapres) 0.1 mg Q6H PRN GT SBP>160 07/29/16 03:30 08/28/16 03:29 Colistimethate Sodium (Colistin *inhalation use only*) 150 mg Q12HR@10,22 INH 08/02/16 14:00 08/09/16 13:59 Heparin Sodium (Porcine) (Heparin 5000 units/ml) 5,000 units EVERY 12 HOURS SUBQ 07/28/16 21:00 08/27/16 20:59 08/02/16 09:08 Levothyroxine Sodium (Synthroid) 25 mcg DAILY GT 07/29/16 09:00 08/28/16 08:59 08/02/16 09:07 Lorazepam 1 mg 1 mg Q4H PRN IV For Anxiety 07/30/16 10:15 08/06/16 10:14 08/02/16 02:09 Meropenem/Sodium Chloride (Merrem/Sodium Chloride) 110 ml @ 220 mls/hr Q12HR@0200,1400 IVPB 08/02/16 14:00 08/07/16 13:59 08/02/16 13:57 Nitroglycerin (Ntg) 0.4 mg Q5M PRN SL Prn Chest Pain 07/28/16 15:30 08/27/16 15:29 Ondansetron HCl (Zofran) 4 mg Q6H PRN IVP Nausea & Vomiting 07/28/16 15:30 08/27/16 15:29 Polyethylene Glycol (Miralax) 17 gm DAILYPRN PRN GT Constipation 07/29/16 01:15 08/28/16 01:14 Promethazine HCl/ Codeine (Phenergan with Codeine) 5 ml Q4H PRN GT For Cough 07/29/16 03:30 08/28/16 03:29 Temazepam (Restoril) 15 mg HSPRN PRN GT Insomnia 07/29/16 01:15 08/05/16 01:14 MICHELLE ROSE August 02, 2016 15:54
[2016-08-02 16:00] VITALS: BP 133/68
[2016-08-02 16:31] LABS: MAGNESIUM 3.1 mg/dL (1.7-2.5); PHOSPHORUS 4.3 mg/dL (2.5-4.8); URIC ACID 8.5 mg/dL (3.0-7.5)
[2016-08-02 16:56] LABS: APPEARANCE,URINE CLEAR; KETONES,URINE NEGATIVE (NEGATIVE); LEUKOCYTE ESTERASE ,URINE NEGATIVE (NEGATIVE); NITRITE,URINE NEGATIVE (NEGATIVE); PH,URINE 8 (4.5-8.0); PROTEIN,URINE 2+ (NEGATIVE); UROBILINOGEN,URINE NORMAL MG/DL (0.0-1.0)
[2016-08-02 17:08] LABS: BACTERIA,URINE FEW /HPF; SQUAMOUS EPITHELIAL CELL,UR FEW /LPF (NONE/OCC); WBC,URINE 0-2 /HPF (0 - 2)
[2016-08-02] MEDS ORDERED: NS 275ml ONE (17:19)
[2016-08-02 20:00] VITALS: BP 122/64
[2016-08-02] MEDS: Iron Sucrose 100 MG in NS 55 ML IVPB SCH (21:00)
[2016-08-03] VITALS (7 sets, daily range): BP systolic 127–147; BP diastolic 65–91
[2016-08-03] MEDS: Dyna-Hex 2% Top Sol 8oz TOPIC SCH (01:32)
[2016-08-03] MEDS: Meropenem 1 GM in NS 110 ML IVPB SCH ×2 (01:40→14:14)
[2016-08-03 05:47] LABS: BASOPHILS % (AUTO) 0.4 % (0.0-2.0); EOSINOPHILS % (AUTO) 0.3 % (0.0-3.0); LYMPHOCYTES % (AUTO) 12.2 % (20.0-45.0); MEAN CORPUSCULAR HEMOGLOBIN 28.3 PG (27.0-31.0); MEAN CORPUSCULAR HGB CONC 31.2 G/DL (32.0-36.0); MEAN CORPUSCULAR VOLUME 91 FL (80-99); MEAN PLATELET VOLUME 6.9 FL (6.5-10.1); MONOCYTES % (AUTO) 6.7 % (1.0-10.0); NEUTROPHILS % (AUTO) 80.4 % (45.0-75.0); PLATELET COUNT 352 K/UL (150-450); RED BLOOD COUNT 3.99 M/UL (4.20-5.40); RED CELL DISTRIBUTION WIDTH 14.2 % (11.6-14.8); WHITE BLOOD COUNT 15.3 K/UL (4.8-10.8)
[2016-08-03 06:09] LABS: ALANINE AMINOTRANSFERASE 9 U/L (3-33); ALBUMIN/GLOBULIN RATIO 0.8 (1.0-2.7); ASPARTATE AMINO TRANSFERASE 13 U/L (5-40); CALCIUM 11.2 mg/dL (8.6-10.2); CHLORIDE 98 mEQ/L (98-107); CREATININE 1.2 mg/dL (0.5-0.9); HEMOLYSIS 6; POTASSIUM 3.7 mEQ/L (3.4-4.9); SODIUM 150 mEQ/L (135-145); TOTAL PROTEIN 7.2 g/dL (6.6-8.7)
[2016-08-03 06:27] LABS: ANION GAP 5 (5-15)
[2016-08-03 06:48] LABS: CARBON DIOXIDE 47 mEQ/L (20-30)
[2016-08-03] MEDS: Colistin for inhalation INH SCH ×2 (07:03→21:48)
[2016-08-03] MEDS: Levothyroxine 25mcg tab GT SCH (08:50)
[2016-08-03] MEDS: Heparin 5000 units/ml inj SUBQ SCH ×2 (08:55→21:18)
--- NOTE | 2016-08-03 09:18 | Diagnostic Imaging Report ---
Indication: Dyspnea Comparison: 07/30/16 A single view chest radiograph was obtained. Findings: Small bilateral pleural effusions are present. There is a left-sided PICC line. Bones are osteopenic. The heart is mildly enlarged. Interstitial edema suspected. Impression: Mild interstitial edema and bilateral pleural effusions. No significant change appreciated
--- NOTE | 2016-08-03 09:18 | Diagnostic Imaging Report ---
Indications: Needs long-term IV access Technique: Procedure performed at bedside. Procedural timeout performed. Ultrasound confirms patent compressible left basilic vein. Total sterile technique, including sterile probe cover and sterile gel, sterile gloves, hand hygiene, hat, mask,, sterile gown, large sterile drape, and preparation with 2% chlorhexidine utilized. Local anesthesia with 1% lidocaine. Under real-time ultrasound guidance, puncture basilic vein using 21-gauge needle, passage 0.018 guidewire, exchange for 5 Kisw[place]ili peel-away sheath. 5 [place]ili Bard dual-lumen power PICC cut to 3 cm. It was inserted through the peel-away sheath. Peel-away sheath and guidewire removed. Catheter fixed to the skin. Both catheter ports aspirated and flushed. Patient tolerated procedure well, without immediate complication. Followup chest x-ray obtained, documents catheter tip position at the high right atrium Impression: Successful bedside placement of left arm PICC under sonographic guidance, as described above.
--- NOTE | 2016-08-03 10:00 | Pulmonology Progress Note ---
Assessment/Plan Problems: (1) Respiratory failure (2) UTI (urinary tract infection) (3) CHF (congestive heart failure) (4) COPD (chronic obstructive pulmonary disease) (5) Diabetes mellitus, type II (6) Cerebral vascular disease (7) Alzheimer's dementia (8) Feeding by G-tube (9) Hypertension Assessment/Plan off laxis drip, bun is rising, BNP dropped to 1000 echo showed EF of 55% persis MDR sputum cxr no acute infiltrate social service to find family to talk about plan of care. Subjective ROS Limited/Unobtainable: No Allergies: Coded Allergies: No Known Allergies (Unverified , 06/13/16) Objective Last 24 Hour Vital Signs Date Time Temp Pulse Resp B/P Pulse Ox O2 Delivery O2 Flow Rate FiO2 08/03/16 08:00 97.9 90 18 127/91 93 Venturi Mask 10.0 08/03/16 08:00 91 08/03/16 07:13 90 18 97 Venturi Mask 8.0 45 08/03/16 07:03 92 Venturi Mask 40 08/03/16 07:03 Venturi Mask 8.0 40 08/03/16 07:03 89 18 92 Venturi Mask 40 08/03/16 04:00 98.9 90 20 139/71 Venturi Mask 9.0 08/03/16 04:00 90 08/03/16 00:00 94 08/03/16 00:00 98.1 94 22 147/67 94 Mechanical Ventilator 08/02/16 23:12 95 18 94 Venturi Mask 8.0 40 08/02/16 23:11 94 18 94 Venturi Mask 40 08/02/16 20:00 95 08/02/16 20:00 99.3 95 20 122/64 93 Venturi Mask 9.0 08/02/16 19:01 94 Venturi Mask 40 08/02/16 19:01 Venturi Mask 8.0 40 08/02/16 16:00 100.6 96 16 133/68 92 Venturi Mask 96.0 40 08/02/16 16:00 97 08/02/16 12:00 92 08/02/16 12:00 97.9 91 16 138/71 96 Venturi Mask 96.0 Intake and Output 08/02/16 08/03/16 19:00 07:00 Intake Total 785 ml 870 ml Output Total 500 ml 450 ml Balance 285 ml 420 ml Free Water 225 ml 160 ml IV Total 110 ml 170 ml Tube Feeding 450 ml 540 ml Output Urine Total 500 ml 450 ml General Appearance: WD/WN HEENT: normocephalic, atraumatic Respiratory/Chest: chest wall non-tender, respiratory distress, crackles/rales Cardiovascular: normal peripheral pulses, normal rate Abdomen: normal bowel sounds, soft, non tender Genitourinary: normal external genitalia Extremities: no cyanosis, no clubbing Skin: no lesions Laboratory Tests 08/02/16 16:25: Urine Color Pale yellow, Urine Appearance Clear, Urine pH 8, Urine Specific [place] 1.010, Urine Protein 2+H, Urine Glucose (UA) Negative, Urine Ketones Negative, Urine Occult Blood 3+H, Urine Nitrite Negative, Urine Bilirubin Negative, Urine Urobilinogen Normal, Urine Leukocyte Esterase Negative, Urine RBC 5-10H, Urine WBC 0-2, Urine Squamous Epithelial Cells Few, Urine Bacteria Few, Urine Eosinophils None seen, Urine Osmolality [Pending], Urine Random Sodium 73, Urine Random Chloride 29, Urine Potassium Timed 56 08/03/16 04:00: White Blood Count 15.3H, Red Blood Count 3.99L, Hemoglobin 11.3L, Hematocrit 36.2L, Mean Corpuscular Volume 91, Mean Corpuscular Hemoglobin 28.3, Mean Corpuscular Hemoglobin Concent 31.2L, Red Cell Distribution Width 14.2, Platelet Count 352, Mean Platelet Volume 6.9, Neutrophils (%) (Auto) 80.4H, Lymphocytes (%) (Auto) 12.2L, Monocytes (%) (Auto) 6.7, Eosinophils (%) (Auto) 0.3, Basophils (%) (Auto) 0.4, Sodium Level 150H, Potassium Level 3.7, Chloride Level 98, Carbon Dioxide Level 47*H, Anion Gap 5, Blood Urea Nitrogen 58H, Creatinine 1.2H, Estimat Glomerular Filtration Rate , Glucose Level 131H, Plasma /Serum Osmolality [Pending], Calcium Level 11.2H, Total Bilirubin < 0.2, Aspartate Amino Transf (AST/SGOT) 13, Alanine Aminotransferase (ALT/SGPT) 9, Alkaline Phosphatase 61, Pro-B-Type Natriuretic Peptide 1308H, Total Protein 7.2 , Albumin 3.4L, Globulin 3.8, Albumin/Globulin Ratio 0.8L, Free Triiodothyronine [Pending], Cortisol [Pending] Current Medications Medications (Trade) Dose Ordered Sig/Mallory Route PRN Reason Start Time Stop Time Status Last Admin Dose Admin Acetaminophen (Tylenol) 650 mg Q4H PRN ORAL T>100.5 07/28/16 15:30 08/27/16 15:29 Al Hydroxide/Mg Hydroxide (Mylanta II) 30 ml Q6H PRN GT dyspepsia 07/29/16 03:30 08/28/16 03:29 Chlorhexidine Gluconate (Caitlyn-Hex 2%) 1 applic Q24H TOPIC 07/30/16 01:00 08/29/16 00:59 08/03/16 01:32 Clonidine HCl (Catapres) 0.1 mg Q6H PRN GT SBP>160 07/29/16 03:30 08/28/16 03:29 Colistimethate Sodium 150 mg 150 mg Q12HR@10,22 INH 08/02/16 14:00 08/09/16 13:59 08/03/16 07:03 Heparin Sodium (Porcine) (Heparin 5000 units/ml) 5,000 units EVERY 12 HOURS SUBQ 07/28/16 21:00 08/27/16 20:59 08/03/16 08:55 Iron Sucrose/ Sodium Chloride (Venofer/Sodium Chloride) 60 ml @ 240 mls/hr BEDTIME IVPB 08/02/16 21:00 08/06/16 21:14 08/02/16 21:00 Levothyroxine Sodium (Synthroid) 25 mcg DAILY GT 07/29/16 09:00 08/28/16 08:59 08/03/16 08:50 Lorazepam 1 mg 1 mg Q4H PRN IV For Anxiety 07/30/16 10:15 08/06/16 10:14 08/02/16 02:09 Meropenem/Sodium Chloride (Merrem/Sodium Chloride) 110 ml @ 220 mls/hr Q12HR@0200,1400 IVPB 08/02/16 14:00 08/07/16 13:59 08/03/16 01:40 Nitroglycerin (Ntg) 0.4 mg Q5M PRN SL Prn Chest Pain 07/28/16 15:30 6/23/17 15:29 Ondansetron HCl (Zofran) 4 mg Q6H PRN IVP Nausea & Vomiting 07/28/16 15:30 08/27/16 15:29 Polyethylene Glycol (Miralax) 17 gm DAILYPRN PRN GT Constipation 07/29/16 01:15 08/28/16 01:14 Promethazine HCl/ Codeine (Phenergan with Codeine) 5 ml Q4H PRN GT For Cough 07/29/16 03:30 08/28/16 03:29 Temazepam (Restoril) 15 mg HSPRN PRN GT Insomnia 07/29/16 01:15 08/05/16 01:14 MICHELLE ROSE August 03, 2016 10:00
--- NOTE | 2016-08-03 11:16 | Diagnostic Imaging Report ---
Indication: DYSPNEA Technique: One view of the chest Comparison: 08/02/2016 Findings: Slight blunting of the left costophrenic angle obscured small effusion not excludable. There is atelectasis at the right lung base, increased. The remainder the lungs are clear. Left arm PICC remains. Impression: Increasing right basilar atelectasis. Stable small left pleural effusion Otherwise little oil changer one day
--- NOTE | 2016-08-03 12:03 | Infectious Diseases Prog Note ---
Assessment/Plan Assessment/Plan A: The patient is an 89-year-old female Fever , SP UTI UCX P Mirabilis leukocytosis increased Probable Pna SCx: MDR Kleb and P mirabilis SP removal of Crr line Cath Cx of tip : Neg ANNELIESE Dementia HTN CHF CVA Diabetes Dysphagia, status post PEG placement CHF PLAN: cont Merrem and colistin INH d# 2 / 7 08/02 SP Zosyn d# 2 07/31 SP IV Cefepime d # 4 Monitor CBC Monitor BMP. Monitor cultures (blood) Monitors chest x-ray Subjective Constitutional: Denies: anorexia, chills, drenching sweats, fatigue, fever, no symptoms, other Allergies: Coded Allergies: No Known Allergies (Unverified , 06/13/16) Subjective afebrile Objective Vital Signs Last 24 Hour Vital Signs Date Time Temp Pulse Resp B/P Pulse Ox O2 Delivery O2 Flow Rate FiO2 08/03/16 11:54 92 30 94 Facial 40 08/03/16 08:00 97.9 90 18 127/91 93 Venturi Mask 10.0 08/03/16 08:00 91 08/03/16 07:13 90 18 97 Venturi Mask 8.0 45 08/03/16 07:03 92 Venturi Mask 40 08/03/16 07:03 Venturi Mask 8.0 40 08/03/16 07:03 89 18 92 Venturi Mask 40 08/03/16 04:00 98.9 90 20 139/71 Venturi Mask 9.0 08/03/16 04:00 90 08/03/16 00:00 94 08/03/16 00:00 98.1 94 22 147/67 94 Mechanical Ventilator 08/02/16 23:12 95 18 94 Venturi Mask 8.0 40 08/02/16 23:11 94 18 94 Venturi Mask 40 08/02/16 20:00 95 08/02/16 20:00 99.3 95 20 122/64 93 Venturi Mask 9.0 08/02/16 19:01 94 Venturi Mask 40 08/02/16 19:01 Venturi Mask 8.0 40 08/02/16 16:00 100.6 96 16 133/68 92 Venturi Mask 96.0 40 08/02/16 16:00 97 Height (Feet): 5 Height (Inches): 6.00 Weight (Pounds): 127 HEENT: anicteric Respiratory/Chest: normal breath sounds Cardiovascular: normal rate, no JVD Laboratory Tests Test 08/02/16 16:25 08/03/16 04:00 Urine Color Pale yellow Urine Appearance Clear Urine pH 8 (4.5-8.0) Urine Specific [place] 1.010 (1.005-1.035) Urine Protein 2+ (NEGATIVE) H Urine Glucose (UA) Negative (NEGATIVE) Urine Ketones Negative (NEGATIVE) Urine Occult Blood 3+ (NEGATIVE) H Urine Nitrite Negative (NEGATIVE) Urine Bilirubin Negative (NEGATIVE) Urine Urobilinogen Normal MG/DL (0.0-1.0) Urine Leukocyte Esterase Negative (NEGATIVE) Urine RBC 5-10 /HPF (0 - 2) H Urine WBC 0-2 /HPF (0 - 2) Urine Squamous Epithelial Cells Few /LPF (NONE/OCC) Urine Bacteria Few /HPF (NONE) Urine Eosinophils None seen Urine Osmolality Pending Urine Random Sodium 73 mmol/L Urine Random Chloride 29 mmol/L Urine Potassium Timed 56 mmol/L White Blood Count 15.3 K/UL (4.8-10.8) H Red Blood Count 3.99 M/UL (4.20-5.40) L Hemoglobin 11.3 G/DL (12.0-16.0) L Hematocrit 36.2 % (37.0-47.0) L Mean Corpuscular Volume 91 FL (80-99) Mean Corpuscular Hemoglobin 28.3 PG (27.0-31.0) Mean Corpuscular Hemoglobin Concent 31.2 G/DL (32.0-36.0) L Red Cell Distribution Width 14.2 % (11.6-14.8) Platelet Count 352 K/UL (150-450) Mean Platelet Volume 6.9 FL (6.5-10.1) Neutrophils (%) (Auto) 80.4 % (45.0-75.0) H Lymphocytes (%) (Auto) 12.2 % (20.0-45.0) L Monocytes (%) (Auto) 6.7 % (1.0-10.0) Eosinophils (%) (Auto) 0.3 % (0.0-3.0) Basophils (%) (Auto) 0.4 % (0.0-2.0) Sodium Level 150 mEQ/L (135-145) H Potassium Level 3.7 mEQ/L (3.4-4.9) Chloride Level 98 mEQ/L (98-107) Carbon Dioxide Level 47 mEQ/L (20-30) *H Anion Gap 5 (5-15) Blood Urea Nitrogen 58 mg/dL (7-23) H Creatinine 1.2 mg/dL (0.5-0.9) H Estimat Glomerular Filtration Rate mL/min (>60) Glucose Level 131 mg/dL (74-106) H Plasma/Serum Osmolality Pending Calcium Level 11.2 mg/dL (8.6-10.2) H Total Bilirubin < 0.2 mg/dL (0.0-1.2) Aspartate Amino Transf (AST/SGOT) 13 U/L (5-40) Alanine Aminotransferase (ALT/SGPT) 9 U/L (3-33) Alkaline Phosphatase 61 U/L (35-104) Pro-B-Type Natriuretic Peptide 1308 pg/mL (0-450) H Total Protein 7.2 g/dL (6.6-8.7) Albumin 3.4 g/dL (3.5-5.2) L Globulin 3.8 g/dL Albumin/Globulin Ratio 0.8 (1.0-2.7) L Free Triiodothyronine Pending Cortisol Pending Current Medications Medications (Trade) Dose Ordered Sig/Mallory Route PRN Reason Start Time Stop Time Status Last Admin Dose Admin Acetaminophen (Tylenol) 650 mg Q4H PRN ORAL T>100.5 07/28/16 15:30 08/27/16 15:29 Al Hydroxide/Mg Hydroxide (Mylanta II) 30 ml Q6H PRN GT dyspepsia 07/29/16 03:30 08/28/16 03:29 Chlorhexidine Gluconate (Caitlyn-Hex 2%) 1 applic Q24H TOPIC 07/30/16 01:00 08/29/16 00:59 08/03/16 01:32 Clonidine HCl (Catapres) 0.1 mg Q6H PRN GT SBP>160 07/29/16 03:30 08/28/16 03:29 Colistimethate Sodium 150 mg 150 mg Q12HR@10,22 INH 08/02/16 14:00 08/09/16 13:59 08/03/16 07:03 Heparin Sodium (Porcine) (Heparin 5000 units/ml) 5,000 units EVERY 12 HOURS SUBQ 07/28/16 21:00 08/27/16 20:59 08/03/16 08:55 Iron Sucrose/ Sodium Chloride (Venofer/Sodium Chloride) 60 ml @ 240 mls/hr BEDTIME IVPB 08/02/16 21:00 08/06/16 21:14 08/02/16 21:00 Levothyroxine Sodium (Synthroid) 25 mcg DAILY GT 07/29/16 09:00 08/28/16 08:59 08/03/16 08:50 Lorazepam 1 mg 1 mg Q4H PRN IV For Anxiety 07/30/16 10:15 08/06/16 10:14 08/02/16 02:09 Meropenem/Sodium Chloride (Merrem/Sodium Chloride) 110 ml @ 220 mls/hr Q12HR@0200,1400 IVPB 08/02/16 14:00 08/07/16 13:59 08/03/16 01:40 Nitroglycerin (Ntg) 0.4 mg Q5M PRN SL Prn Chest Pain 07/28/16 15:30 08/27/16 15:29 Ondansetron HCl (Zofran) 4 mg Q6H PRN IVP Nausea & Vomiting 07/28/16 15:30 08/27/16 15:29 Polyethylene Glycol (Miralax) 17 gm DAILYPRN PRN GT Constipation 07/29/16 01:15 08/28/16 01:14 Promethazine HCl/ Codeine (Phenergan with Codeine) 5 ml Q4H PRN GT For Cough 07/29/16 03:30 08/28/16 03:29 Temazepam (Restoril) 15 mg HSPRN PRN GT Insomnia 07/29/16 01:15 08/05/16 01:14 KIMO CEDEÑO M.D. August 03, 2016 12:03
--- NOTE | 2016-08-03 14:21 | Diagnostic Imaging Report ---
Indication: Abnormal renal function tests Technique: Grayscale and duplex images of the kidneys, retroperitoneum, and bladder were obtained. Comparison:06/15/2016 Findings: Right kidney measures 7.8 cm in length. Left kidney measures 8 cm in length. Both kidneys demonstrate normal echogenicity. No hydronephrosis. Right kidney demonstrates a 2.1 cm upper pole cyst.. Normal inferior vena cava. Bladder is activity, contains a Cuenca catheter. Impression: Bilateral renal atrophy, also previously described. Negative for hydronephrosis Incidental finding right upper pole cyst. Empty bladder with Cuenca catheter
[2016-08-03] MEDS: Iron Sucrose 100 MG in NS 55 ML IVPB SCH (21:15)
[2016-08-04] MEDS: Dyna-Hex 2% Top Sol 8oz TOPIC SCH (01:39)
[2016-08-04] MEDS: Meropenem 1 GM in NS 110 ML IVPB SCH ×2 (01:40→13:36)
[2016-08-04 03:55] VITALS: BP 120/76
[2016-08-04 06:26] LABS: MEAN CORPUSCULAR HEMOGLOBIN 28.6 PG (27.0-31.0); MEAN CORPUSCULAR HGB CONC 31.1 G/DL (32.0-36.0); MEAN CORPUSCULAR VOLUME 92 FL (80-99); MEAN PLATELET VOLUME 7.2 FL (6.5-10.1); PLATELET COUNT 345 K/UL (150-450); RED BLOOD COUNT 3.96 M/UL (4.20-5.40); RED CELL DISTRIBUTION WIDTH 14.7 % (11.6-14.8); WHITE BLOOD COUNT 18.7 K/UL (4.8-10.8)
[2016-08-04 06:29] LABS: ALANINE AMINOTRANSFERASE 8 U/L (3-33); ALBUMIN/GLOBULIN RATIO 0.8 (1.0-2.7); ASPARTATE AMINO TRANSFERASE 13 U/L (5-40); CALCIUM 10.5 mg/dL (8.6-10.2); CHLORIDE 105 mEQ/L (98-107); HEMOLYSIS 9; MAGNESIUM 2.6 mg/dL (1.7-2.5); PHOSPHORUS 2.6 mg/dL (2.5-4.8); POTASSIUM 3.9 mEQ/L (3.4-4.9); SODIUM 155 mEQ/L (135-145); TOTAL PROTEIN 6.8 g/dL (6.6-8.7)
[2016-08-04 06:38] LABS: ANION GAP 5 (5-15)
[2016-08-04] MEDS: Colistin for inhalation INH SCH (07:13)
[2016-08-04 07:26] LABS: CARBON DIOXIDE 45 mEQ/L (20-30)
[2016-08-04 08:06] VITALS: BP 133/70
[2016-08-04 08:51] LABS: ANISOCYTOSIS 1+; BAND NEUTROPHILS % (MANUAL) 0 % (0-8); BASOPHILS % (MANUAL) 0 % (0-2); EOSINOPHILS % (MANUAL) 0 % (0-3); HYPOCHROMASIA 1+; LYMPHOCYTES % (MANUAL) 15 % (20-45); NEUTROPHILS % (MANUAL) 77 % (45-75); PLATELET ESTIMATE ADEQUATE; PLATELET MORPHOLOGY NORMAL; TOTAL CELLS COUNTED 100
[2016-08-04] MEDS: Levothyroxine 25mcg tab GT SCH (09:17)
[2016-08-04] MEDS: Heparin 5000 units/ml inj SUBQ SCH (09:19)
[2016-08-04 11:26] VITALS: BP 130/71
--- NOTE | 2016-08-04 11:51 | Pulmonology Progress Note ---
Assessment/Plan Problems: (1) Respiratory failure (2) UTI (urinary tract infection) (3) CHF (congestive heart failure) (4) COPD (chronic obstructive pulmonary disease) (5) Diabetes mellitus, type II (6) Cerebral vascular disease (7) Alzheimer's dementia (8) Feeding by G-tube (9) Hypertension Assessment/Plan Ct head stat neuro evaluation echo showed EF of 55% persis MDR sputum cxr no acute infiltrate social service tried to find family to talk about plan of care. Pt has no family members. Ethics committee to make recommendations about code status and plan of care. I suggest comfort care, DNR and hospice care. Subjective ROS Limited/Unobtainable: No Interval Events: less responsive Constitutional: Reports: no symptoms Allergies: Coded Allergies: No Known Allergies (Unverified , 06/13/16) Objective Last 24 Hour Vital Signs Date Time Temp Pulse Resp B/P Pulse Ox O2 Delivery O2 Flow Rate FiO2 08/04/16 11:26 97.9 111 26 130/71 97 Venturi Mask 40 08/04/16 08:06 98.1 108 22 133/70 95 Venturi Mask 40 08/04/16 08:00 110 08/04/16 07:22 111 25 98 Venturi Mask 40 08/04/16 07:19 108 25 Venturi Mask 8.0 40 08/04/16 07:15 Venturi Mask 8.0 40 08/04/16 07:10 108 24 95 Venturi Mask 8.0 40 08/04/16 07:09 95 Venturi Mask 40 08/04/16 04:38 100 08/04/16 03:55 98.1 98 21 120/76 96 Venturi Mask 10.0 08/04/16 00:00 95 08/03/16 23:51 98.6 97 19 135/75 97 Venturi Mask 10.0 08/03/16 21:54 95 20 98 Venturi Mask 40 08/03/16 21:52 93 20 97 Venturi Mask 40 08/03/16 20:00 94 08/03/16 19:56 97.9 94 18 144/67 95 Venturi Mask 10.0 08/03/16 19:30 Venturi Mask 8.0 40 08/03/16 19:30 93 Venturi Mask 40 08/03/16 15:52 97.9 89 22 128/67 96 Venturi Mask 10.0 08/03/16 15:26 91 08/03/16 12:00 93 08/03/16 12:00 98.2 91 22 129/65 92 Venturi Mask 10.0 08/03/16 11:54 92 30 94 Facial 40 Intake and Output 08/03/16 08/04/16 19:00 07:00 Intake Total 700 ml 45 ml Output Total 300 ml 600 ml Balance 400 ml -555 ml Free Water 185 ml Tube Feeding 450 ml 45 ml Other 65 ml Output Urine Total 300 ml 600 ml # Bowel Movements 1 General Appearance: WD/WN HEENT: normocephalic, anicteric Respiratory/Chest: crackles/rales Breasts: no masses Cardiovascular: normal peripheral pulses Abdomen: normal bowel sounds, soft, non tender Extremities: no cyanosis Skin: no rash Neurologic/Psychiatric: 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 grossly normal, no motor/sensory deficits Lymphatic: no neck adenopathy, no groin adenopathy Laboratory Tests 08/04/16 05:10: White Blood Count 18.7H, Red Blood Count 3.96L, Hemoglobin 11.3L, Hematocrit 36.5L, Mean Corpuscular Volume 92, Mean Corpuscular Hemoglobin 28.6, Mean Corpuscular Hemoglobin Concent 31.1L, Red Cell Distribution Width 14.7, Platelet Count 345, Mean Platelet Volume 7.2, Neutrophils (%) (Auto) , Lymphocytes (%) (Auto) , Monocytes (%) (Auto) , Eosinophils (%) (Auto) , Basophils (%) (Auto) , Differential Total Cells Counted 100, Neutrophils % ( Manual) 77H, Lymphocytes % (Manual) 15L, Monocytes % (Manual) 8, Eosinophils % ( Manual) 0, Basophils % (Manual) 0, Band Neutrophils 0, Platelet Estimate Adequate, Platelet Morphology Normal, Hypochromasia 1+, Anisocytosis 1+, Sodium Level 155H, Potassium Level 3.9, Chloride Level 105, Carbon Dioxide Level 45*H, Anion Gap 5, Blood Urea Nitrogen 58H, Creatinine 1.0H, Estimat Glomerular Filtration Rate , Glucose Level 116H, Calcium Level 10.5H, Phosphorus Level 2.6 , Magnesium Level 2.6H, Total Bilirubin < 0.2, Aspartate Amino Transf (AST/SGOT ) 13, Alanine Aminotransferase (ALT/SGPT) 8, Alkaline Phosphatase 52, Total Protein 6.8, Albumin 3.2L, Globulin 3.6, Albumin/Globulin Ratio 0.8L Current Medications Medications (Trade) Dose Ordered Sig/Mallory Route PRN Reason Start Time Stop Time Status Last Admin Dose Admin Acetaminophen (Tylenol) 650 mg Q4H PRN ORAL T>100.5 07/28/16 15:30 08/27/16 15:29 Al Hydroxide/Mg Hydroxide (Mylanta II) 30 ml Q6H PRN GT dyspepsia 07/29/16 03:30 08/28/16 03:29 Chlorhexidine Gluconate (Caitlyn-Hex 2%) 1 applic Q24H TOPIC 07/30/16 01:00 08/29/16 00:59 08/04/16 01:39 Clonidine HCl (Catapres) 0.1 mg Q6H PRN GT SBP>160 07/29/16 03:30 08/28/16 03:29 Colistimethate Sodium 150 mg 150 mg Q12HR@10,22 INH 08/02/16 14:00 08/09/16 13:59 08/04/16 07:13 Heparin Sodium (Porcine) (Heparin 5000 units/ml) 5,000 units EVERY 12 HOURS SUBQ 07/28/16 21:00 08/27/16 20:59 08/04/16 09:19 Iron Sucrose/ Sodium Chloride (Venofer/Sodium Chloride) 60 ml @ 240 mls/hr BEDTIME IVPB 08/02/16 21:00 08/06/16 21:14 08/03/16 21:15 Levothyroxine Sodium (Synthroid) 25 mcg DAILY GT 07/29/16 09:00 08/28/16 08:59 08/04/16 09:17 Lorazepam 1 mg 1 mg Q4H PRN IV For Anxiety 07/30/16 10:15 08/06/16 10:14 08/02/16 02:09 Meropenem/Sodium Chloride (Merrem/Sodium Chloride) 110 ml @ 220 mls/hr Q12HR@0200,1400 IVPB 08/02/16 14:00 08/07/16 13:59 08/04/16 01:40 Nitroglycerin (Ntg) 0.4 mg Q5M PRN SL Prn Chest Pain 07/28/16 15:30 08/27/16 15:29 Ondansetron HCl (Zofran) 4 mg Q6H PRN IVP Nausea & Vomiting 07/28/16 15:30 08/27/16 15:29 Polyethylene Glycol (Miralax) 17 gm DAILYPRN PRN GT Constipation 07/29/16 01:15 08/28/16 01:14 Promethazine HCl/ Codeine (Phenergan with Codeine) 5 ml Q4H PRN GT For Cough 07/29/16 03:30 08/28/16 03:29 Temazepam (Restoril) 15 mg HSPRN PRN GT Insomnia 07/29/16 01:15 08/05/16 01:14 08/04/16 01:00 MICHELLE ROSE August 04, 2016 11:51
--- NOTE | 2016-08-04 12:46 | General Progress Note ---
Progress Note Progress Note Bioethics This 89 year old assisted patient is unrepresented by family or other and has had a declining medical course over 7 days of hospitalization. She is at the point where intubation and controlled ventilation has been considered. Because of her advanced age and poor health this intervention would be unlikely to succeed in prolonging her life with any quality and in all liklihood would be futile. This is the conclusion of her attending physician and is supported by consultants and social work. It is reasonable to refer her to hospice and stop aggressive medical care. MD YANELIS Guevara MICHAEL August 04, 2016 12:46
--- NOTE | 2016-08-04 13:56 | Diagnostic Imaging Report ---
Indications: Altered metal Technique: Spiral acquisitions obtained through the brain. Angled axial and coronal 5 x 5 mm slices were reconstructed. Total dose length product 1368 mGycm. CTDI vol(s) mGy. Dose reduction achieved using automated exposure control Comparison: None Findings: There is marked age-related enlargement of the ventricles and extra axial CSF spaces. There is periventricular deep white matter chronic ischemic change noted. No acute hemorrhage or edema. No mass effect or midline shift. Otherwise normal cisse-white differentiation. Streak artifact from dental amalgam obscures a portion of the posterior fossa. Intact calvarium. There is sphenoid and ethmoid sinus disease. There is evidence of prior bilateral ocular surgery. There is extensive opacification of the mastoid air cells bilaterally. Impression: Chronic and age-related changes, as described. Negative for acute intracranial bleed or mass effect Sinus disease Bilateral mastoid disease The CT scanner at [facility] is accredited by the [employer] and the scans are performed using protocols designed to limit radiation exposure to as low as reasonably achievable to attain images of sufficient resolution adequate for diagnostic evaluation.
[2016-08-04 15:22] VITALS: BP 120/63
[2016-08-04] MEDS ORDERED: NS 275ml ONE (16:23)
--- NOTE | 2016-08-05 15:53 | Discharge Summary ---
Discharge Summary Hospital Course Date of Admission July 28, 2016 at 17:11 Date of Discharge August 04, 2016 at 16:24 Admitting Diagnosis ams, sob HPI María Bhatti is a 89 year old female who was admitted on July 28, 2016 at 17:11 for Altered Mental Status, Shortness Of Breath Hospital Course [id number] Discharge Discharge Disposition Patient was discharged to [facility] under hospice Discharge Diagnoses: Diamond iDckey NP Aug 05, 2016 15:53
--- NOTE | 2016-08-06 01:15 | Discharge Summary 2 SIG ---
DATE OF ADMISSION: 07/28/2016 DATE OF DISCHARGE: 08/04/2016 CONSULTANTS: 1. Yannick Contreras M.D. 2. David Toth M.D. BRIEF HOSPITAL COURSE: The patient is an 89-year-old female with history of dementia, hypertension, congestive heart failure, CVA, diabetes, dysphagia with G-tube, COPD, and pneumonia in the past, who was brought in by ambulance for shortness of breath and dyspnea. On evaluation at ED, she presented with leukocytosis WBC of 15. Chest x-ray showed right-sided greater than left CHF versus pneumonia. She was started on IV antibiotics. At ED, the patient was in respiratory distress and was started on BiPAP and was transferred to [facility]. She was continued on respiratory treatments and feeding via G-tube. Dr. Contreras was consulted. The patient was given IV cefepime. Echocardiogram done showed ejection fraction of 55%. Diamox was added secondary to rising CO2 level. BNP was over 5000 and was given Lasix drip. Diamox was added to her medications. Sputum culture showed growth of MDR Klebsiella and Proteus mirabilis. Urine with growth of Proteus mirabilis. She had a renal ultrasound that showed bilateral renal atrophy negative for hydronephrosis. Creatinine continued to rise as well as CO2 level. Subsequent chest x-ray showed increasing right basilar atelectasis. Social service was called to find family members to talk about plan of care. However, the patient has no family members. Bioethics committee was called in regarding code status and plan of care. Head CT done showed chronic age-related changes negative for acute intracranial bleed or mass effect. Per Bioethics recommendation, the patient is unpresented by family and has had declining medical course. Because of her advanced age and poor health, these intervention would be unlikely to succeed in prolonging her life with any quality and in all likelihood, will be futile. It is reasonable for her to be on hospice and to stop aggressive medical care. She was then discharged under hospice. FINAL DIAGNOSES: 1. Acute respiratory failure. 2. Urinary tract infection with Proteus mirabilis. 3. Probable pneumonia with multidrug resistant Klebsiella and Proteus. 4. Acute kidney injury. 5. Dementia. 6. Acute diastolic congestive heart failure. 7. Diabetes mellitus type 2. 8. Feeding via gastrostomy tube. 9. Hypertension. 10. Old cerebrovascular accident. 11. Hospice care. Yeimi Razo M.D. I have been assigned to dictate discharge summary on this account and I was not involved in the patient's management. Diamond Dickey N.P. DR: SHERYL JOB#: [id number] CC: ALONZO
== END 2016-08-04 16:24 | disposition hospice, home (50) | DRG 177 ==
LOC: EDBD 13:23 → EMR 14:01 → 2W 17:11 → EDBEDREQ 18:29 → 2W 19:51 → 2E 08-03 14:20
PROC: 5A09457 Assistance with Respiratory Ventilation, 24-96 Consecutive Hours, Continuous Positive Airway Pressure (ICD-10-PCS; principal; 2016-07-29)
PROC: 02H633Z Insertion of Infusion Device into Right Atrium, Percutaneous Approach (ICD-10-PCS; 2016-07-30)
DX: J15.0 Pneumonia due to Klebsiella pneumoniae (principal); J96.02 Acute respiratory failure with hypercapnia; N17.9 Acute kidney failure, unspecified; I50.33 Acute on chronic diastolic (congestive) heart failure; N39.0 Urinary tract infection, site not specified; Z43.1 Encounter for attention to gastrostomy; R13.10 Dysphagia, unspecified; J44.9 Chronic obstructive pulmonary disease, unspecified; I10 Essential (primary) hypertension; E11.9 Type 2 diabetes mellitus without complications; B96.4 Proteus (mirabilis) (morganii) as the cause of diseases classified elsewhere; G30.9 Alzheimer's disease, unspecified; F02.80 Dementia in other diseases classified elsewhere, unspecified severity, without behavioral disturbance, psychotic disturbance, mood disturbance, and anxiety; J15.6 Pneumonia due to other Gram-negative bacteria; Z16.24 Resistance to multiple antibiotics; Z86.73 Personal history of transient ischemic attack (TIA), and cerebral infarction without residual deficits; I67.9 Cerebrovascular disease, unspecified
CPT/HCPCS: 36415; 36569; 36600; 70450; 71010; 76775; 76937; 80053; 80069; 81001; 81003; 82270; 82378; 82436; 82533; 82550; 82553; 82607; 82746; 82803; 83540; 83550; 83605; 83615; 83735; 83880; 83930; 83935; 84100; 84133; 84300; 84439; 84443; 84481; 84484; 84550; 85007; 85025; 85044; 85060; 85610; 85651; 85730; 87040; 87070; 87081; 87181; 87205; 89050; 93005; 93306; 94640; 94660; 94664; 94760